=== PATIENT | female | born 1970 | race Caucasian/White ===

== ENCOUNTER 2018-04-06 20:57 | Observation (INO) | payer MEDICAID, SELFPAY ==
[2018-04-06 20:58] VITALS: BP 132/65; PULSE 102; RESP 18; TEMP 36.1; O2SAT 98; BMI 22.4
--- NOTE | 2018-04-06 21:56 | ED.RN ---
iv attempted in triage. not successful.
--- NOTE | 2018-04-06 22:20 | ED.VISSUMM ---
- ER Visit Summary Date of Service: 04/06/18 Chief Complaint: Abdominal pain History of Present Illness: The patient is a 48 F presenting with left lower quadrant abdominal pain. This started 3 days ago. She has nausea with no vomiting. She has had diarrhea. Denies urinary complaints. Denies back pain. Denies fever. She has not had these symptoms in the past. She has a history of ovarian cancer in remission. Previous total hysterectomy. Denies other complaints. Physical Examination: Vitals are stable. Heart rate 102. Patient is afebrile. Alert no acute distress. HEENT exam is unremarkable. Neck is supple. Lungs are clear and equal bilaterally. Heart is regular rate and tachycardic Abdomen is soft left lower quadrant tenderness with no rebound or guarding Extremities are unremarkable. Skin is warm and dry. Remainder of exam is unremarkable. Emergency Department Course and Treatment: Patient given IV fluids, morphine, Phenergan. CBC, chemistries unremarkable. Total bili 0.10, lipase 96. Urinalysis unremarkable. CT abdomen pelvis shows apparent acute inflammation and localized ileus of the proximal small bowel involving primarily the duodenum and proximal jejunum. Possible fecal stasis within the transverse colon and right colon may be the result of an ileus as well. This may be result of acute infection or inflammation of small bowel. Sigmoid colon diverticulosis. There is thickening of the gauthier of sigmoid colon which may in part be related to nondistention. Acute infection or inflammation cannot be excluded. She was given Flagyl and Rocephin secondary to levofloxacin allergy. Discussed with hospitalist for observation. Disposition: Observation Impression: Abdominal pain, ileus This note was generated with [employer] dictation software. It may contain incorrect words, spelling, and punctuation that were not noted in review of the chart prior to signing ED Disposition - Plan for ED Patient: Chief Complaint: Abd Pain Referrals: [facility] Doctor,Out of [NON-STAFF] -
[2018-04-06] MEDS: 0.9% Normal Saline 1,000 ML 1000 ML IV (22:36)
[2018-04-06] MEDS: proMETHazine 25 MG/ML Syringe 6.25 MG IV (22:36)
[2018-04-06] MEDS: Morphine 4 MG/ML Syringe IV (22:36)
[2018-04-06 22:49] LABS: Absolute Lymphocyte Count 1.71 X10^3/ul (0.83-4.51); Absolute Neutrophil Count 4.2 X10^3/uL (2.0-7.7); Basophil# 0.04 X10^3/uL; Basophil% 0.6 % (0-1); Eosinophil# 0.24 X10^3/uL; Eosinophils% 3.5 % (0-5); Hematocrit 40.6 % (37-47); Hemoglobin 13.1 g/dl (12.0-15.0); Lymphocyte # 1.71 X10^3/ul (4.0); Mean Corp Hgb Conc 32.3 g/gl (32-36); Mean Corpuscular Hgb 32.5 pg (27.0-32.0); Mean Corpuscular Volume 100.7 fL (81-99); Mean Platelet Vol. 11.3 fl (6.2-12.0); Monocyte# 0.65 X10^3/uL; Monocyte% 9.5 % (0-10); Neutrophil % 61.3 % (47-70); Platelet Count 168 K/mm3 (150-450); RBC Distribution Width CV 13.1 % (11.6-14.6); RBC Distribution Width SD 47.8 fl (35.1-43.9); Red Blood Count 4.03 M/mm3 (4.2-5.4); White Blood Count 6.9 K/mm3 (4.4-11.0)
[2018-04-06 22:50] LABS: POSITIVE COUNT NO; POSITIVE DIFFERENTIAL NO; POSITIVE MORPHOLOGY NO
[2018-04-06 23:13] LABS: AST(SGOT) 18 U/L (15-37); Alanine Aminotransfer ALT/SGPT 25 U/L (13-56); Albumin, Serum 3.4 g/dL (3.2-5.0); Alkaline Phosphatase 80 U/L (45-117); Anion Gap 7 (5-15); BUN 17 mg/dL (7-18); BUN/Creat Ratio 17.4 RATIO (10-20); Bilirubin, Direct < 0.05 mg/dL (0.00-0.30); Calcium,Total 8.8 mg/dL (8.5-10.1); Chloride 109 mmol/L (98-107); Creatinine, Serum 0.98 mg/dL (0.55-1.02); EST Glomerular Filtration Rate 65 mL/min (>60); Est Glom Filt Rate - Afr Amer 79 mL/min (>60); Estimated Creatinine Clearance 63.86 ml/min; Globulin 3.5 g/dL (2.2-4.2); Glucose 100 mg/dL (74-106); Lipase 96 U/L (73-393); Potassium 3.9 mmol/L (3.5-5.1); Protein, Total 6.9 g/dL (6.4-8.2); Sodium Level 141 mmol/L (136-145)
[2018-04-06 23:30] VITALS: RESP 18
[2018-04-06 23:41] LABS: Bacteria 0 SEEN /hpf (None Seen); Mucous, Urine 0 SEEN /hpf (<or=2+)
[2018-04-06 23:45] LABS: Color, Urine Yellow (Yellow); Glucose, Dipstick Normal (Normal); Ketone-Dipstick Negative (Negative); Leukocyte Esterase-Dipstick 25 /ul (Negative); Nitrite-Dipstick Negative (Negative); Occult Blood-Urine 10 /ul (Negative); Protein-Dipstick Negative (Negative); Specific Gravity, Urine 1.015 (1.002-1.030); Urine Bilirubin Dipstick Negative (Negative); Urine Clarity Clear (Clear); Urine Urobilinogen Normal (Normal); Urine pH 6.5 (5.0 - 8.0)
[2018-04-06 23:52] LABS: Red Blood Cells-Urine 0-5 SEEN /hpf (0-5); Squamous Epithelial Cells - UA 0-5 SEEN /hpf (5-10); White Blood Cells 0-5 SEEN /hpf (0-5)
[2018-04-06 23:58] VITALS: BP 122/69; PULSE 65; RESP 16; TEMP 36.8; O2SAT 98
[2018-04-07] VITALS (7 sets, daily range): BP systolic 110–128; BP diastolic 70–81; PULSE 60–70; RESP 14–18; TEMP 36.4–36.9; O2SAT 94–99; BMI 22.2; BMI 22.3
--- NOTE | 2018-04-07 01:52 | ED.RN ---
WHILE AT CT PATIENTS IV INFILTRATED. PATIENT HAND SWOLLEN. DENIES PAIN. HAND ELEVATED AND ICE APPLIED. DR CAIN NOTIFIED.
--- NOTE | 2018-04-07 02:15 | PCM.HP.STD ---
Problem List (1) Abdominal pain Status: Acute Qualifiers: Abdominal location: generalized Qualified Code(s): R10.84 - Generalized abdominal pain (2) Nausea Status: Acute (3) History of ovarian cancer Status: Chronic History of Present Illness Date of Admission: 04/07/18 Chief Complaint: abdominal pain The patient is a 48 year old female patient with a significant history of ovarian cancer presents to the ER with abdominal pain. The pain has progressed over the past three days. She has had little or no appetite. Last BM was two days ago. CT scan shows ileus with inflammation of duodenum and proximal jejunum, there is diverticulosis , appendix is visualized and appears normal. CBC, CMP are within normal limits. She is afebrile but pain level warrants admission for observation. Past Medical History Past Medical History (Chronic Problems): Chronic Problems History of ovarian cancer (Chronic) Allergies ondansetron [From Zofran] Allergy (Verified 04/06/18 21:02) Shortness of breath aspirin Adverse Reaction (Verified 04/06/18 21:02) Other BLISTER ibuprofen [From Motrin] Adverse Reaction (Verified 04/06/18 21:02) Other BLISTER levofloxacin [From Levaquin] Adverse Reaction (Verified 04/06/18 21:02) Other BLISTER NSAIDS (Non-Steroidal Anti-Inflamma Adverse Reaction (Verified 04/06/18 21:02) Other BLISTER Smoking Status: Current every day smoker - *Family History Maternal History Items: No pertinent history Review of Systems Constitutional: Reports: Chills. Denies: Fever, Weight Change HEENT: Denies: Head Aches, Sinus Congestion, Sinus Drainage Cardiovascular: Denies: Chest Pain, Palpitations Respiratory: Denies: Cough, Shortness of breath at rest, Sputum production Gastrointestinal: Reports: Abdominal Pain, Nausea. Denies: Vomiting Genitourinary: Denies: Dysuria Musculoskeletal: Denies: Joint Pain, Joint Tenderness Skin: Denies: Rash, Wounds Neurological: Denies: Numbness, Tingling, Focal weakness Psychiatric: Denies: Anxiety, Depression, Homicidal Ideations, Suicidal Ideations Hematologic/ Lymphatic: Denies: Easy Bruising, Easy Bleeding VTE Information - Inpt Only VTE Present on Admission: No VTE Mechan Device Prophylaxis: None VTE Pharm Prophylaxis ordered?: Yes Patient Problems: Active and Suspected Problems Abdominal pain (Acute) Nausea (Acute) - Physical Exam General: Alert, Oriented x3, Cooperative HEENT: Atraumatic, Normocephalic Neck: Supple Lungs: Normal air movement, No rhonchi, No rales, Wheezes Cardiovascular: Regular rate, Normal S1, Normal S2, No murmurs Abdomen: Soft, Hypoactive Bowel Sounds, Tender Extremities: No edema Skin: No rashes Musculoskeletal: No Tenderness to Palpation of Joints or Extremities Neurological: Neuro grossly intact Psych/Mental Status: Normal Affect, Appropriate Vital Signs Temp Pulse Resp BP Pulse Ox 97.8 F 70 14 110/71 94 04/07/18 01:53 04/07/18 01:53 04/07/18 01:53 04/07/18 01:53 04/07/18 01:53 Oxygen Delivery Method Room Air Weight: 134 lb 11.239 oz Body Mass Index (BMI) 22.4 Laboratory Tests Past 24 Hrs 04/06/18 04/06/18 04/06/18 22:35 22:35 23:33 WBC 6.9 RBC 4.03 L Hgb 13.1 Hct 40.6 MCV 100.7 H MCH 32.5 H MCHC 32.3 RDW 13.1 RDW Differential 47.8 H Plt Count 168 MPV 11.3 Immature Gran % (Auto) 0.100 Neut % (Auto) 61.3 Lymph % (Auto) 25.0 [place] % (Auto) 9.5 Eos % (Auto) 3.5 Baso % (Auto) 0.6 Absolute Neuts (auto) 4.2 Absolute Lymphs (auto) 1.71 Total Counted Not Reportable Sodium 141 Potassium 3.9 Chloride 109 H Carbon Dioxide 25.0 Anion Gap 7 BUN 17 Creatinine 0.98 Estim Creat Clear Calc 63.86 Est GFR (MDRD) Af Amer 79 Est GFR (MDRD) Non-Af 65 BUN/Creatinine Ratio 17.4 Glucose 100 Calcium 8.8 Total Bilirubin 0.10 L Direct Bilirubin < 0.05 AST 18 ALT 25 Alkaline Phosphatase 80 Total Protein 6.9 Albumin 3.4 Globulin 3.5 Lipase 96 Urine Color Yellow Urine Clarity Clear Urine pH 6.5 Ur Specific [place] 1.015 Urine Protein Negative Urine Glucose (UA) Normal Urine Ketones Negative Urine Occult Blood 10 H Urine Nitrite Negative Urine Bilirubin Negative Urine Urobilinogen Normal Ur Leukocyte Esterase 25 H Urine RBC 0-5 SEEN Urine WBC 0-5 SEEN Ur Squamous Epith Cells 0-5 SEEN Urine Bacteria 0 SEEN Urine Mucus 0 SEEN Assessment/Plan All Active Problems Abdominal pain (Acute) Nausea (Acute) Plan 1. Abdominal pain/ Ileus/ small intestine inflammation--admit to general medical floor. NPO. IV normal saline at 125cc/hr. Morphine 2mg IV q 2hrs prn, zofran 4mg IV q8hrs prn nausea. CBC, CMP in am. 2. DVT prophylaxis-- LMWH Code Visit OBSV E&M: [id number] Initial observation care L2
[2018-04-07] MEDS: Ceftriaxone 1 GM/50 ML BAG IV (02:21)
[2018-04-07] MEDS: Morphine 2 MG/ML Syringe IV ×7 (03:34→22:15)
[2018-04-07 05:56] LABS: Absolute Lymphocyte Count 1.78 X10^3/ul (0.83-4.51); Absolute Neutrophil Count 2.6 X10^3/uL (2.0-7.7); Basophil# 0.03 X10^3/uL; Basophil% 0.6 % (0-1); Eosinophil# 0.23 X10^3/uL; Eosinophils% 4.5 % (0-5); Hematocrit 40.4 % (37-47); Lymphocyte # 1.78 X10^3/ul (4.0); Lymphocyte % 34.7 % (19-41); Mean Corp Hgb Conc 32.2 g/gl (32-36); Mean Corpuscular Hgb 32.5 pg (27.0-32.0); Mean Platelet Vol. 11.6 fl (6.2-12.0); Monocyte# 0.45 X10^3/uL; Monocyte% 8.8 % (0-10); Neutrophil # 2.63 X10^3/uL (2.7-7.7); Neutrophil % 51.2 % (47-70); Platelet Count 167 K/mm3 (150-450); RBC Distribution Width CV 13.2 % (11.6-14.6); RBC Distribution Width SD 47.8 fl (35.1-43.9); White Blood Count 5.1 K/mm3 (4.4-11.0)
[2018-04-07 05:58] LABS: POSITIVE COUNT NO; POSITIVE DIFFERENTIAL NO; POSITIVE MORPHOLOGY NO
[2018-04-07 06:19] LABS: AST(SGOT) 19 U/L (15-37); Alanine Aminotransfer ALT/SGPT 25 U/L (13-56); Albumin, Serum 3.1 g/dL (3.2-5.0); Alkaline Phosphatase 69 U/L (45-117); Anion Gap 9 (5-15); BUN 14 mg/dL (7-18); BUN/Creat Ratio 18.3 RATIO (10-20); Calcium,Total 7.9 mg/dL (8.5-10.1); Chloride 112 mmol/L (98-107); Creatinine, Serum 0.76 mg/dL (0.55-1.02); EST Glomerular Filtration Rate 86 mL/min (>60); Est Glom Filt Rate - Afr Amer 104 mL/min (>60); Estimated Creatinine Clearance 82.34 ml/min; Globulin 3.2 g/dL (2.2-4.2); Glucose 87 mg/dL (74-106); Potassium 4.1 mmol/L (3.5-5.1); Protein, Total 6.3 g/dL (6.4-8.2); Sodium Level 144 mmol/L (136-145)
[2018-04-07] MEDS: proMETHazine 25 MG/ML Syringe 12.5 MG IV (09:42)
--- NOTE | 2018-04-07 11:03 | RAD_ITS ---
STUDY: X-RAY - ABDOMEN/PELVIS REASON FOR EXAM: Female, 48 years old. Abdominal pain, last bowel movement yesterday. Possible small bowel obstruction. TECHNIQUE: AP supine and upright views of the abdomen and pelvis. COMPARISON: CT abdomen and pelvis 1220 hours. FINDINGS: Normal visualized lung bases. There is an unremarkable bowel gas pattern, including stool mixed with contrast material from prior study throughout most of the colon. There is no demonstrated free abdominal air. The visualized liver, spleen and kidneys are grossly normal in size and morphology. Surgical clips are noted along the blanco of the right and transverse colon, and a few smaller surgical clips are also seen in the low abdomen/pelvis. There is a small calcified phlebolith in the left pelvic soft tissues. Normal visualized osseous structures. RAD/Abd Inc Decub and/or Erect IMPRESSION: Postsurgical changes evident. The bowel pattern is unremarkable without sign of obstruction. No free gas. Electronically Signed: Silvano Iyer MD at 17:19 EST , Service support ,
--- NOTE | 2018-04-07 11:04 | PCM.PN.HOSP ---
Patient Problems: Active and Suspected Problems Abdominal pain (Acute) Nausea (Acute) Subjective: Patient have vomiting about 3 times daily for last 3 days along with abdominal pain. She denies any change in the bowel movement and has moved bowel yesterday but as per her H&P looks like last fall when it was 2 days ago. Patient has history of ovarian cancer and had a laparotomy with nephrectomy although detailed operative note is unavailable. Her oncologist care is in [facility], last chemo was in August 2015 and was discontinued after she developed allergy with chemotherapeutic drug. She also has history of peptic ulcer disease about 7 years ago no history of hematemesis but denies any recent GI bleed. Denies alcohol drinking or liver disease. Had subjective fever with chills and diaphoresis before coming here but after admission no fever Vitals/I&O's: Vital Signs Temp Pulse Resp BP Pulse Ox 97.6 F L 66 18 128/81 H 96 04/07/18 07:50 04/07/18 07:50 04/07/18 07:50 04/07/18 07:50 04/07/18 07:50 Oxygen Delivery Method Room Air Weight: 133 lb 13.129 oz Body Mass Index (BMI) 22.2 Intake and Output for Last 24 Hours 04/05/18 04/06/18 04/07/18 23:59 23:59 23:59 Intake Total 189 / 189 Balance 189 / 189 General: Alert, Oriented x3, Cooperative HEENT: Atraumatic, PERRLA, EOMI, Normocephalic Neck: Supple, No JVD, Negative Carotid Bruits Lungs: Clear to auscultation, Normal air movement, No rhonchi, No wheeze, No rales Cardiovascular: Regular rate, Regular Rhythm, Normal S1, No murmurs Abdomen: Bowel Sounds Present, Soft, Tender - Predominantly over left upper quadrant. Extremities: No edema, Capillary Refill Less than 3 Seconds Skin: No rashes, No breakdown Musculoskeletal: No Tenderness to Palpation of Joints or Extremities Neurological: Cranial nerves II-XII grossly intact Psych/Mental Status: Normal Affect, Appropriate Laboratory Results 04/06/18 22:35: WBC 6.9, RBC 4.03 L, Hgb 13.1, Hct 40.6, MCV 100.7 H, MCH 32.5 H, MCHC 32.3, RDW 13.1, RDW Differential 47.8 H, Plt Count 168, MPV 11.3, Immature Gran % (Auto) 0.100, Neut % (Auto) 61.3, Lymph % (Auto) 25.0, [place] % (Auto) 9.5, Eos % (Auto) 3.5, Baso % (Auto) 0.6, Absolute Neuts (auto) 4.2, Absolute Lymphs (auto) 1.71, Total Counted Not Reportable 04/06/18 22:35: Sodium 141, Potassium 3.9, Chloride 109 H, Carbon Dioxide 25.0, Anion Gap 7, BUN 17, Creatinine 0.98, Estim Creat Clear Calc 63.86, Est GFR (MDRD) Af Amer 79, Est GFR (MDRD) Non-Af 65, BUN/Creatinine Ratio 17.4, Glucose 100, Calcium 8.8, Total Bilirubin 0.10 L, Direct Bilirubin < 0.05, AST 18, ALT 25, Alkaline Phosphatase 80, Total Protein 6.9, Albumin 3.4, Globulin 3.5, Lipase 96 04/06/18 23:33: Urine Color Yellow, Urine Clarity Clear, Urine pH 6.5, Ur Specific [place] 1.015, Urine Protein Negative, Urine Glucose (UA) Normal, Urine Ketones Negative, Urine Occult Blood 10 H, Urine Nitrite Negative, Urine Bilirubin Negative, Urine Urobilinogen Normal, Ur Leukocyte Esterase 25 H, Urine RBC 0-5 SEEN, Urine WBC 0-5 SEEN, Ur Squamous Epith Cells 0-5 SEEN, Urine Bacteria 0 SEEN, Urine Mucus 0 SEEN 04/07/18 05:14: WBC 5.1, RBC 4.00 L, Hgb 13.0, Hct 40.4, MCV 101.0 H, MCH 32.5 H, MCHC 32.2, RDW 13.2, RDW Differential 47.8 H, Plt Count 167, MPV 11.6, Immature Gran % (Auto) 0.200, Neut % (Auto) 51.2, Lymph % (Auto) 34.7, [place] % (Auto) 8.8, Eos % (Auto) 4.5, Baso % (Auto) 0.6, Absolute Neuts (auto) 2.6, Absolute Lymphs (auto) 1.78, Total Counted Not Reportable 04/07/18 05:14: Sodium 144, Potassium 4.1, Chloride 112 H, Carbon Dioxide 23.0, Anion Gap 9, BUN 14, Creatinine 0.76, Estim Creat Clear Calc 82.34, Est GFR (MDRD) Af Amer 104, Est GFR (MDRD) Non-Af 86, BUN/Creatinine Ratio 18.3, Glucose 87, Calcium 7.9 L, Total Bilirubin 0.20, AST 19, ALT 25, Alkaline Phosphatase 69, Total Protein 6.3 L, Albumin 3.1 L, Globulin 3.2, Albumin/Globulin Ratio 1.0 Current Medications Enoxaparin Sodium (Lovenox) 40 mg SC DAILY@1000 KARLY Sodium Chloride () 1,000 mls @ 125 mls/hr IV .Q8H KARLY Magnesium Hydroxide (Milk Of Magnesia) 30 ml PO DAILY PRN PRN PRN Reason: Constipation Morphine Sulfate () 2 mg IV Q2H PRN PRN PRN Reason: SEVERE PAIN (6-10/10) Last Admin: 04/07/18 09:42 Dose: 2 mg Promethazine HCl (Phenergan) 12.5 mg IV Q6H PRN PRN PRN Reason: NAUSEA/VOMITING Last Admin: 04/07/18 09:42 Dose: 12.5 mg Sodium Chloride () 5 - 15 ml IV UD PRN PRN Reason: SALINE FLUSH Medical Necessity - Tobacco Use Smoking Status: Current every day smoker Assessment/Plan All Active Problems Abdominal pain (Acute) Nausea (Acute) This is a 48-year-old female with history of ovarian cancer status post laparotomy, oophorectomy, could not complete chemotherapy because of allergic reaction, last one in August 2017 in [facility] 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 She denies unusual food/food poisoning. She denies diarrhea or GI bleed but most probably did not move bowel movement for last 2 days. She also had subjective fever before coming to hospital. 1. Generalized abdominal pain most probably secondary to small bowel ileus/enteritis: CT abdomen images reviewed. It shows dilatation of proximal small bowel involving duodenum and proximal jejunum suggestive of inflammation and localized ileus. Feces present in transverse colon and ascending colon. Sigmoid colon diverticulosis. Stool for fecal blood, leukocytes and enteric pathology panel ordered. NG tube was tried for decompression but patient could not tolerate it. Surgical consult for further opinion and recommendation 2. Ovarian cancer status post laparotomy: Follows outpatient oncology in [facility]. DVT prophylaxis: On Lovenox 40 mg subcu daily Clinical Impression(s) from Imaging Studies Abdomen/Pelvis CT 04/07/18 22:17 IMPRESSION: 1. Apparent acute inflammation and localized ileus of the proximal small bowel involving primarily the duodenum and proximal jejunum. Possible fecal stasis within the transverse colon and right colon may be the result of an ileus as well. This may be result of acute infection or inflammation of small bowel. 2. Sigmoid colon diverticulosis. There is thickening of the gauthier of sigmoid colon which may in part be related to nondistention. Acute infection or inflammation cannot be excluded.
--- NOTE | 2018-04-07 12:21 | PCA ---
Sent request for medical records to [facility]
[2018-04-07] MEDS: proCHLORPERazine 10 MG/2 ML Vial 5 MG IV (12:36)
[2018-04-07] MEDS: 0.9% Normal Saline 1,000 ML 125 ML IV ×2 (12:42→22:14)
[2018-04-07] MEDS: 0.9% NaCl Peripheral Flush Adult/Peds IV ×3 (16:25→22:15)
--- NOTE | 2018-04-07 19:07 | PCM.CONS.GEN ---
Reason for Consult Date of Consultation: 04/07/18 Reason for Consultation: abdominal pain History of Present Illness: The patient is a 48 year old F presents with complaint of increasing abdominal pain and poor appetite over the last 5 days. The patient denies true nausea or vomiting. She states she is moving her bowels and passing flatus. When she presented emergency department, she underwent CT scan of the abdomen and pelvis. This demonstrated: IMPRESSION: 1. Apparent acute inflammation and localized ileus of the proximal small bowel involving primarily the duodenum and proximal jejunum. Possible fecal stasis within the transverse colon and right colon may be the result of an ileus as well. This may be result of acute infection or inflammation of small bowel. 2. Sigmoid colon diverticulosis. There is thickening of the gauthier of sigmoid colon which may in part be related to nondistention. Acute infection or inflammation cannot be excluded. the patient had unremarkable laboratory studies. The patient was admitted with the above complaints. Incidentally, the patient notes a history of ovarian cancer. She states she was stage IV ovarian cancer. She understood she had a radical hysterectomy with surgery which she describes was resection of part of her colon and small bowel and appendix. She states this was performed at [place] [id number]. Past Medical History Past Medical History (Chronic Problems): Chronic Problems History of ovarian cancer (Chronic) Allergies ondansetron [From Zofran] Allergy (Verified 04/06/18 21:02) Shortness of breath aspirin Adverse Reaction (Verified 04/06/18 21:02) Other BLISTER ibuprofen [From Motrin] Adverse Reaction (Verified 04/06/18 21:02) Other BLISTER levofloxacin [From Levaquin] Adverse Reaction (Verified 04/06/18 21:02) Other BLISTER NSAIDS (Non-Steroidal Anti-Inflamma Adverse Reaction (Verified 04/06/18 21:02) Other BLISTER Home Medications: Ambulatory Orders Medication Instructions Recorded ALPRAZolam [Xanax] 1 mg PO TID PRN PRN 04/07/18 Lamotrigine [Lamictal] 300 mg PO QHS 04/07/18 Zolpidem Tartrate [Ambien 10 mg PO QHS PRN PRN 04/07/18 (Generic)] Surgical History: - - radical hysterectomy with additional resections for ovarian cancer Smoking Status: Current every day smoker - *Family History Maternal History Items: No pertinent history Patient Problems: Active and Suspected Problems Abdominal pain (Acute) Nausea (Acute) - Physical Exam General: Alert, Oriented x3, Cooperative Lungs: Clear to auscultation, Normal air movement Cardiovascular: Regular rate, No murmurs Abdomen: Bowel Sounds Present, Soft, Tender - mildly diffusely tender without peritoneal signs Vital Signs Temp Pulse Resp BP Pulse Ox 97.8 F 63 18 114/72 99 04/07/18 16:25 04/07/18 16:25 04/07/18 16:25 04/07/18 16:25 04/07/18 16:25 Oxygen Delivery Method Room Air Weight: 60.7 kg Body Mass Index (BMI) 22.2 Intake and Output for Last 24 Hours 04/05/18 04/06/18 04/07/18 23:59 23:59 23:59 Intake Total 1669 / 1669 Output Total 100 / 100 Balance 1569 / 1569 Laboratory Tests Past 24 Hrs 04/06/18 04/06/18 04/06/18 22:35 22:35 23:33 WBC 6.9 RBC 4.03 L Hgb 13.1 Hct 40.6 MCV 100.7 H MCH 32.5 H MCHC 32.3 RDW 13.1 RDW Differential 47.8 H Plt Count 168 MPV 11.3 Immature Gran % (Auto) 0.100 Neut % (Auto) 61.3 Lymph % (Auto) 25.0 [place] % (Auto) 9.5 Eos % (Auto) 3.5 Baso % (Auto) 0.6 Absolute Neuts (auto) 4.2 Absolute Lymphs (auto) 1.71 Total Counted Not Reportable Sodium 141 Potassium 3.9 Chloride 109 H Carbon Dioxide 25.0 Anion Gap 7 BUN 17 Creatinine 0.98 Estim Creat Clear Calc 63.86 Est GFR (MDRD) Af Amer 79 Est GFR (MDRD) Non-Af 65 BUN/Creatinine Ratio 17.4 Glucose 100 Calcium 8.8 Total Bilirubin 0.10 L Direct Bilirubin < 0.05 AST 18 ALT 25 Alkaline Phosphatase 80 Total Protein 6.9 Albumin 3.4 Globulin 3.5 Albumin/Globulin Ratio Lipase 96 Urine Color Yellow Urine Clarity Clear Urine pH 6.5 Ur Specific [place] 1.015 Urine Protein Negative Urine Glucose (UA) Normal Urine Ketones Negative Urine Occult Blood 10 H Urine Nitrite Negative Urine Bilirubin Negative Urine Urobilinogen Normal Ur Leukocyte Esterase 25 H Urine RBC 0-5 SEEN Urine WBC 0-5 SEEN Ur Squamous Epith Cells 0-5 SEEN Urine Bacteria 0 SEEN Urine Mucus 0 SEEN 04/07/18 04/07/18 05:14 05:14 WBC 5.1 RBC 4.00 L Hgb 13.0 Hct 40.4 MCV 101.0 H MCH 32.5 H MCHC 32.2 RDW 13.2 RDW Differential 47.8 H Plt Count 167 MPV 11.6 Immature Gran % (Auto) 0.200 Neut % (Auto) 51.2 Lymph % (Auto) 34.7 [place] % (Auto) 8.8 Eos % (Auto) 4.5 Baso % (Auto) 0.6 Absolute Neuts (auto) 2.6 Absolute Lymphs (auto) 1.78 Total Counted Not Reportable Sodium 144 Potassium 4.1 Chloride 112 H Carbon Dioxide 23.0 Anion Gap 9 BUN 14 Creatinine 0.76 Estim Creat Clear Calc 82.34 Est GFR (MDRD) Af Amer 104 Est GFR (MDRD) Non-Af 86 BUN/Creatinine Ratio 18.3 Glucose 87 Calcium 7.9 L Total Bilirubin 0.20 Direct Bilirubin AST 19 ALT 25 Alkaline Phosphatase 69 Total Protein 6.3 L Albumin 3.1 L Globulin 3.2 Albumin/Globulin Ratio 1.0 Lipase Urine Color Urine Clarity Urine pH Ur Specific [place] Urine Protein Urine Glucose (UA) Urine Ketones Urine Occult Blood Urine Nitrite Urine Bilirubin Urine Urobilinogen Ur Leukocyte Esterase Urine RBC Urine WBC Ur Squamous Epith Cells Urine Bacteria Urine Mucus Assessment/Plan All Active Problems Abdominal pain (Acute) Nausea (Acute) poor appetite, abdominal pain, history of surgical procedure for advanced ovarian cancer? Tobacco use CT scan does not demonstrate a true obstructive or even ileus picture. There was a question of dilation of the duodenum. The patient has noted a poor appetite and increasing abdominal pain, the patient smokes cigarettes. I have ordered an obstructive series if this does not demonstrate a more obstructive picture, I would consider upper endoscopy to assess for peptic ulcer disease.
--- NOTE | 2018-04-07 22:17 | CT_ITS ---
STUDY: CT ABDOMEN AND PELVIS WITH CONTRAST REASON FOR EXAM: Female, 48 years old. Left lower quadrant abdominal pain and nausea for 3 days. Patient has been treated for ovarian cancer. RADIATION DOSAGE (If Supplied By Facility): CTDIvol = ( 10.88 ) mGy, DLP = ( 439.23 ) mGycm TECHNIQUE: Transaxial images were obtained from the dome of the diaphragm to the symphysis pubis without oral contrast. 50 ml of Isovue 300 contrast was administered. Sagittal and coronal images were reconstructed. Individualized dose optimization techniques were used for this CT. COMPARISON: Prior comparison studies are not available for review at this time. FINDINGS: There is groundglass attenuation within the posterior regions of both lungs possibly related to dependent atelectasis. Early airspace disease is also possible. No pleural effusions are visualized. The visualized portions of the heart are within normal limits. Normal liver. Normal gallbladder and extrahepatic biliary system. Normal spleen. Normal pancreas. Normal bilateral adrenal glands. Normal right kidney. Normal left kidney. Normal visualized stomach. There is apparent thickening of the gauthier of proximal small bowel possibly related to acute infection or inflammation. The rest the small bowel has a normal appearance. Appears to be a increased stool within the transverse colon and right colon suggesting possible fecal stasis. The descending colon is not distended with questionable thickening of the gauthier. There are multiple sigmoid colon diverticula. The sigmoid colon is not distended and there are screws in the appearance of thickened gauthier. There are surgical clips in the region of the appendix consistent with a prior appendectomy. Normal abdominal aorta. Normal inferior vena cava. Normal retroperitoneum. Normal urinary bladder. There is absence of the uterus consistent with a prior hysterectomy. Normal abdominal wall. Normal osseous structures. CT/Abdomen/Pelvis WITH Contrast IMPRESSION: 1. Apparent acute inflammation and localized ileus of the proximal small bowel involving primarily the duodenum and proximal jejunum. Possible fecal stasis within the transverse colon and right colon may be the result of an ileus as well. This may be result of acute infection or inflammation of small bowel. 2. Sigmoid colon diverticulosis. There is thickening of the gauthier of sigmoid colon which may in part be related to nondistention. Acute infection or inflammation cannot be excluded. Electronically Signed: Kirsten Mckinney MD at 1:14 EST , Service support ,
[2018-04-08] MEDS: Morphine 2 MG/ML Syringe IV ×5 (00:27→09:49)
[2018-04-08] MEDS: 0.9% NaCl Peripheral Flush Adult/Peds IV ×4 (00:27→09:49)
[2018-04-08] MEDS: ALPRAZolam 0.5 MG Tablet 1 MG PO (00:27)
[2018-04-08] MEDS: proCHLORPERazine 10 MG/2 ML Vial 5 MG IV (03:52)
[2018-04-08 03:56] VITALS: BP 114/66; PULSE 80; RESP 16; TEMP 36.6; O2SAT 97
--- NOTE | 2018-04-08 06:00 | RAD_ITS ---
STUDY: X-RAY - ABDOMEN/PELVIS REASON FOR EXAM: Female, 48 years old. Abdominal pain. TECHNIQUE: AP supine and upright views of the abdomen and pelvis. COMPARISON: Radiographs of the abdomen dated April 07, 2018. FINDINGS: Normal visualized lung bases. There is an unremarkable bowel gas pattern. Multiple surgical clips are visible within the right upper quadrant and left upper quadrant. Surgical clips are visible in the pelvis and right lower quadrant. There is no obvious organomegaly, mass or dilated bowel. Normal soft tissue structures. Normal visualized osseous structures. RAD/Abd Inc Decub and/or Erect IMPRESSION: No radiographic evidence of acute intra-abdominal disease. Electronically Signed: Kirsten Mckinney MD at 5:42 EST , Service support ,
[2018-04-08] MEDS: 0.9% Normal Saline 1,000 ML 125 ML IV (06:37)
[2018-04-08 09:42] VITALS: BP 135/80; PULSE 72; RESP 18; TEMP 36.6; O2SAT 99
--- NOTE | 2018-04-08 11:28 | PCM.DC.SUM ---
Discharge Date and Diagnosis Date of Admission: 04/07/18 Date of Discharge: 04/08/18 - Primary Discharge Diagnosis Active and Suspected Problems Abdominal pain (Acute) Nausea (Acute) - Secondary Discharge Diagnosis Chronic Problems History of ovarian cancer (Chronic) Hospital Course and Treatment Imaging Results: 04/08/18 06:00 Abd Inc Decub and/or Erect [RAD] Routine Summary of Care Provided: [] This is a 48-year-old female with history of ovarian cancer status post laparotomy, oophorectomy, could not complete chemotherapy because of allergic reaction, last one in August 2017 in [facility] 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 She denies unusual food/food poisoning. She denies diarrhea or GI bleed but most probably did not move bowel movement for last 2 days. She also had subjective fever before coming to hospital. 1. Generalized abdominal pain most probably secondary to small bowel ileus/enteritis: CT abdomen images reviewed. It shows dilatation of proximal small bowel involving duodenum and proximal jejunum suggestive of inflammation and localized ileus. Feces present in transverse colon and ascending colon. Sigmoid colon diverticulosis. Stool for fecal blood, leukocytes and enteric pathology panel ordered but patient did not collection although she had bowel movement. Dr. Owusu was consulted. Repeat abdominal x-ray does not show bowel obstruction. Patient was allowed on sips and chips last night and changed to clear liquid diet. Patient wants to sign AMA and leave the hospital. She was tried to convince she did further need to assess for EGD to assess the cause for duodenal and jejunal dilatation but she did not want to stay further. This was discussed with Dr. Owusu who does not want to follow for outpatient EGD with the patient signs AMA and this was conveyed to the patient. Patient is still signed AMA. 2. Ovarian cancer status post laparotomy: Follows outpatient oncology in [facility]. DVT prophylaxis: On Lovenox 40 mg subcu daily Discharge medication reconciliation done. Patient was advised to take PPI. Follow with PCP Clinical Impression(s) from Imaging Studies Abdomen X-Ray 04/07/18 11:03 IMPRESSION: Postsurgical changes evident. The bowel pattern is unremarkable without sign of obstruction. No free gas. Abdomen/Pelvis CT 04/07/18 22:17 IMPRESSION: 1. Apparent acute inflammation and localized ileus of the proximal small bowel involving primarily the duodenum and proximal jejunum. Possible fecal stasis within the transverse colon and right colon may be the result of an ileus as well. This may be result of acute infection or inflammation of small bowel. 2. Sigmoid colon diverticulosis. There is thickening of the gauthier of sigmoid colon which may in part be related to nondistention. Acute infection or inflammation cannot be excluded. Abdomen X-Ray 04/08/18 06:00 IMPRESSION: No radiographic evidence of acute intra-abdominal disease. Subjective: Seen and examined. Patient does not have nausea vomiting. On sips and chips and allowed clear liquid. Denies abdominal pain. Patient moved flatus and bowel movement. - Physical Exam General: Alert, Oriented x3, Cooperative HEENT: Atraumatic, PERRLA, EOMI, Normocephalic Neck: Supple, No JVD, Negative Carotid Bruits Lungs: Clear to auscultation, Normal air movement, No rhonchi, No wheeze, No rales Cardiovascular: Regular rate, Normal S1, Normal S2, No murmurs Abdomen: Bowel Sounds Present, Soft, Non Tender, Non-Distended Extremities: No edema, Capillary Refill Less than 3 Seconds Skin: No rashes, No breakdown Musculoskeletal: No Tenderness to Palpation of Joints or Extremities Neurological: Cranial nerves II-XII grossly intact, Deep Tendon Reflexes 2+/4 and Symmetrical, Neuro grossly intact, Motor Exam 5/5 strength throughout Psych/Mental Status: Normal Affect, Appropriate Vital Signs Temp Pulse Resp BP Pulse Ox 98 F 72 18 135/80 H 99 04/08/18 09:42 04/08/18 09:42 04/08/18 09:42 04/08/18 09:42 04/08/18 09:42 Oxygen Delivery Method Room Air Weight: 133 lb 13.129 oz Body Mass Index (BMI) 22.2 Intake and Output for Last 24 Hours 04/06/18 04/07/18 04/08/18 23:59 23:59 23:59 Intake Total 2121 / 2121 780 / 780 Output Total 1200 / 1200 200 / 200 Balance 921 / 921 580 / 580 Home Medications: Medications to take at Discharge ALPRAZolam [Xanax] 1 mg PO TID PRN PRN 04/07/18 Lamotrigine [Lamictal] 300 mg PO QHS 04/07/18 Zolpidem Tartrate [Ambien] 10 mg PO QHS PRN PRN 04/07/18 Pantoprazole Sodium [Protonix] 40 mg PO DAILY #30 tablet 04/08/18 Following Prescrptions Were Given to Patient: Pantoprazole Sodium [Protonix] 40 mg PO DAILY #30 tablet Primary Care Physician: Chikis Doctor,Out of [NON-STAFF] - Medical Necessity - Tobacco Use Smoking Status: Current every day smoker Meaningful Use Info Meaningful Use Diagnoses (Choose all that apply): None applicable Code Visit Inpatient E&M: 27460 Disch Hosp
--- NOTE | 2018-04-08 12:04 | NURSING ---
This RN had questioned and spoke with fisher eel about giving pt narcotic pain meds after negative xray this AM. However,led to believe that pt would have scope ordered today and would not be able to take PO pain meds, and because of potential for ulcers could not give IV toradol. Pt has been calling out requesting prn morphine prior to med even being due (ordered every 2 hours). However, in room was laughing and joking. Non verbal pain not correlating with verbalized pain of 5 or 6/10. Pt complained of being nauseated to doctor and per Dr. Chaves's report requested phenergan prior to d/c today. Pt stated that she needed to get out of here as she was tired and hungry. However, then asked for prn nausea medication and prn morphine prior to d/c. As she was getting dressed independently- no issues bending to tie shoes or put on clothing independently. Notified patient and fiance that meds and phenergan cannot be given as pt is leaving AMA. Also, notified pt that her IV has already been removed. Pt verbalized understanding and denied further needs. AMA form signed and copy given to patient Dr. Chaves spoke with pt and fiance notifying them that Dr. Stacy will not be able to see pt as an outpatient if she is leaving AMA. Understanding verbalized by patient and fiance.
== END 2018-04-08 11:40 | disposition left against medical advice (07) ==
LOC: ED 22:23 → MS3 04-07 02:27
PROVIDERS: Admitting Provider Family Medicine; Emergency Provider Emergency Medicine; Referring Provider Nurse Practitioner Family; Visit Provider Internal Medicine
DX: R10.32 Left lower quadrant pain (principal); Z23 Encounter for immunization; R19.7 Diarrhea, unspecified; R11.0 Nausea; Z79.899 Other long term (current) drug therapy; Z85.43 Personal history of malignant neoplasm of ovary; Z87.11 Personal history of peptic ulcer disease; K57.30 Diverticulosis of large intestine without perforation or abscess without bleeding; F17.210 Nicotine dependence, cigarettes, uncomplicated
CPT/HCPCS: 36415; 74019; 74177; 80048; 80053; 80076; 81001; 83690; 85025; 96361; 96365; 96367; 96375; 96376; 97802; 99218; 99285; 99406; J7030; Q9967; 90686; A4216; G0378

== ENCOUNTER 2018-04-13 21:15 | Observation (INO) | payer MEDICAID, SELFPAY ==
[2018-04-07 03:30] VITALS: BMI 22.2
[2018-04-13 21:17] VITALS: BP 128/88; PULSE 97; RESP 16; TEMP 36.6; O2SAT 100; BMI 22.6
--- NOTE | 2018-04-13 21:35 | ED.VISSUMM ---
- ER Visit Summary Date of Service: 04/13/18 Chief Complaint: Abdominal pain History of Present Illness: The patient is a 48 F who presents for left-sided abdominal pain for 8 days. Patient has a history of stage III ovarian cancer, status post hysterectomy, bilateral salpingo-oophorectomy, partial colectomy. Patient was admitted for the same complaint and left AGAINST MEDICAL ADVICE 5 days ago. She has had continued pain, gradually worsening in the left abdomen with associated nausea and vomiting. Patient states she vomited clear mucousy vomit with blood streaks in it 3 times today. She had a normal bowel movement this morning. No urinary symptoms. Yesterday she developed a fever of 101, had chills and sweats, chest pain, shortness of breath, and a headache. Patient did get a flu shot this year. She is not on any medications for pain at home. Physical Examination: Vital signs: afebrile, hemodynamically stable, no hypoxia on room air General: well nourished, well developed, in no distress Skin: warm, dry, no rash, no pallor HEENT: normocephalic and atraumatic; PERRL, EOMI, moist mucous membranes Cardiovascular: Tachycardic rate and rhythm without murmurs, no peripheral edema, 2+ pulses all distal extremities Respiratory: No increased work of breathing, lungs are clear to auscultation bilaterally, no rales, rhonchi or wheezing Abdominal: Abdomen is soft, tender in the left upper and lower quadrants with normoactive bowel sounds, no guarding or rebound, no masses MSK: Moves all extremities, no deformities, normal strength Neuro: Awake and alert, oriented ?4. No facial droop, sensation and motor function intact and symmetric Test Results: Clinical Impression(s) from Imaging Studies Acute Abdomen Series 04/13/18 22:40 IMPRESSION: 1. Nonspecific gas pattern. 2. Mild atelectatic changes in lung bases. Electronically Signed: Ced Gonzalez MD at 22:56 EST Tel , Service support , Medications Given Discontinued Medications Sodium Chloride () 1,000 mls @ 1,000 mls/hr IV .Q1H ONE Stop: 04/13/18 22:33 Last Admin: 04/13/18 22:19 Dose: 1,000 mls/hr Morphine Sulfate () 4 mg IV X1 ONE Stop: 04/13/18 21:35 Last Admin: 04/13/18 22:20 Dose: 4 mg Promethazine HCl (Phenergan) 12.5 mg IV X1 ONE Stop: 04/13/18 21:35 Last Admin: 04/13/18 22:19 Dose: 12.5 mg Emergency Department Course and Treatment: Patient presents for further evaluation and management after leaving AGAINST MEDICAL ADVICE 5 days ago. She has had continued pain, but now is having reported fever, shortness of breath, chest pain, headache and symptoms that sound concerning for influenza. Her main complaint, however, is continued abdominal pain. Flu was checked and was negative. Patient was given morphine for pain, Phenergan for nausea, and IV fluids. Abdominal series was performed that showed no free air or obstructive bowel gas pattern. Patient's urine was positive for hematuria. Her CT scan from 5 days ago was reviewed and showed no evidence of renal stones that might be responsible for ureteral colic today. Patient is also passing gas and having normal bowel movements, making ileus or bowel obstruction unlikely. Patient continued to have severe left-sided pain after receiving pain medications. She had no leukocytosis or significant anemia. Remainder of labs are still pending due to hemolyzed samples and difficulty obtaining blood draws. Because patient has had the persistent pain since her prior admission and did not have completion of her workup, and because she continues to have intractable pain, she was discussed with the hospitalist and was admitted as observation status by Dr. Vazquez, for pain control and consultation for EGD. Treatment Plan: [] Disposition: [] Impression: Intractable abdominal pain, history of ovarian cancer This note was generated with [employer] dictation software. It may contain incorrect words, spelling, and punctuation that were not noted in review of the chart prior to signing ED Disposition - Plan for ED Patient: Chief Complaint: Abd Pain Referrals: Brittny Fuller [Primary Care Provider] -
[2018-04-13] MEDS: 0.9% Normal Saline 1,000 ML 1000 ML IV (22:19)
[2018-04-13] MEDS: proMETHazine 25 MG/ML Syringe 12.5 MG IV (22:19)
[2018-04-13] MEDS: Morphine 4 MG/ML Syringe IV (22:20)
[2018-04-13 22:31] LABS: Bacteria 0 SEEN /hpf (None Seen)
[2018-04-13 22:33] LABS: Color, Urine Yellow (Yellow); Glucose, Dipstick Normal (Normal); Ketone-Dipstick Negative (Negative); Leukocyte Esterase-Dipstick 25 /ul (Negative); Nitrite-Dipstick Negative (Negative); Occult Blood-Urine 250 /ul (Negative); Protein-Dipstick 15 mg/dl (Negative); Specific Gravity, Urine 1.025 (1.002-1.030); Urine Bilirubin Dipstick Negative (Negative); Urine Clarity Sl. Cloudy (Clear); Urine Urobilinogen Normal (Normal)
--- NOTE | 2018-04-13 22:40 | RAD_ITS ---
STUDY: X-RAY - ACUTE ABDOMINAL SERIES REASON FOR EXAM: Female, 48 years old. Abdominal pain. TECHNIQUE: Single view of the chest. Supine, and erect view(s) of the abdomen were obtained. COMPARISON: The 2018. FINDINGS: There is mild stranding in the lung bases consistent with mild subsegmental atelectasis. No focal infiltrate is seen. Normal size heart. Normal mediastinum and shahid. Normal visualized pulmonary arteries. Normal visualized aortic arch and descending thoracic aorta. There are nonspecific gaseous small bowel loops and colon. There is mild fecal retention. There is no evidence of free air. There are surgical clips in the abdomen and pelvic region. Normal visualized osseous structures. RAD/Acute Abdomen Inc Chest IMPRESSION: 1. Nonspecific gas pattern. 2. Mild atelectatic changes in lung bases. Electronically Signed: Ced Gonzalez MD at 22:56 EST Tel , Service support ,
[2018-04-13 22:48] LABS: Squamous Epithelial Cells - UA 0-5 SEEN /hpf (5-10)
[2018-04-13 22:51] LABS: Mucous, Urine 1+ /hpf (<or=2+); Red Blood Cells-Urine > 100 SEEN /hpf (0-5); White Blood Cells 0-5 SEEN /hpf (0-5)
[2018-04-13 23:47] LABS: Absolute Lymphocyte Count 2.08 X10^3/ul (0.83-4.51); Absolute Neutrophil Count 3.8 X10^3/uL (2.0-7.7); Basophil# 0.04 X10^3/uL; Basophil% 0.6 % (0-1); Eosinophil# 0.16 X10^3/uL; Eosinophils% 2.4 % (0-5); Hematocrit 41.3 % (37-47); Hemoglobin 13.2 g/dl (12.0-15.0); Lymphocyte # 2.08 X10^3/ul (4.0); Lymphocyte % 30.7 % (19-41); Mean Corpuscular Hgb 32.3 pg (27.0-32.0); Mean Platelet Vol. 10.8 fl (6.2-12.0); Monocyte# 0.71 X10^3/uL; Monocyte% 10.5 % (0-10); Neutrophil # 3.77 X10^3/uL (2.7-7.7); Neutrophil % 55.7 % (47-70); POSITIVE COUNT NO; POSITIVE DIFFERENTIAL NO; POSITIVE MORPHOLOGY NO; Platelet Count 170 K/mm3 (150-450); RBC Distribution Width CV 13.2 % (11.6-14.6); RBC Distribution Width SD 48.5 fl (35.1-43.9); Red Blood Count 4.09 M/mm3 (4.2-5.4); White Blood Count 6.8 K/mm3 (4.4-11.0)
--- NOTE | 2018-04-13 23:53 | HP.PCM_ITS ---
Problem List (1) Abdominal pain Status: Acute Qualifiers: Abdominal location: generalized Qualified Code(s): R10.84 - Generalized abdominal pain (2) Nausea Status: Acute (3) Tobacco use Status: Chronic (4) Anxiety and depression Status: Chronic (5) GERD (gastroesophageal reflux disease) Status: Chronic Qualifiers: Esophagitis presence: esophagitis presence not specified Qualified Code(s): K21.9 - Gastro-esophageal reflux disease without esophagitis (6) History of ovarian cancer Status: Chronic History of Present Illness Date of Admission: 04/13/18 Chief Complaint: Ongoing L sided abdominal pain The patient is a 48 y/o F w/ PMHx: Ovarian CA Dx 2006 s/p Hysterectomy w/ BL CELSO s/p chemotherapy in Remission following w/ Hem/Onc at [facility], Anxiety and Depression, GERD, Tobacco use who presents to the [facility] ED on 04/13/18, following recently leaving [facility] on 04/08/18 with history of ongoing cramping and severe sharp, 10/10, intermittent primarily L sided abdominal pain w/ nausea with occasional emesis with poor oral intake since leaving, and that the bouts of emesis are so severe that she has had some very mild minimal blood streak secondary to retching. She notes last bowel movement was on day of ED presentation and was normal in appearance in addition to ongoing flatus. She notes additionally that she has had a fever up to 101 in addition to chills at home. Work-up in the ED included T 98, heart rate 97, BP 128/88, respiratory rate 16, 100% on room air, CBC with WBC 6.8, heme globin 13.2, platelet 170 without any left shift increased monocytes, CMP with chloride 108, lactic acid pending, hepatic profile unremarkable, urinalysis with specific gravity 1.025, protein 15, occult blood 250, leukocyte esterase 25, greater than 100 RBC, WBC 0-5, squamous epithelial cells 0-5, no bacteria, rapid influenza negative acute abdominal series with a nonspecific gas pattern with mild atelectatic changes in the lung bases. Past Medical History Past Medical History (Chronic Problems): Chronic Problems History of ovarian cancer (Chronic) Tobacco use (Chronic) Anxiety and depression (Chronic) GERD (gastroesophageal reflux disease) (Chronic) Allergies acetaminophen [From Darvocet-N] Allergy (Verified 04/13/18 21:17) Other ondansetron [From Zofran] Allergy (Verified 04/13/18 21:17) Shortness of breath propoxyphene [From Darvocet-N] Allergy (Verified 04/13/18 21:17) Other aspirin Adverse Reaction (Verified 04/13/18 21:17) Other BLISTER ibuprofen [From Motrin] Adverse Reaction (Verified 04/13/18 21:17) Other BLISTER levofloxacin [From Levaquin] Adverse Reaction (Verified 04/13/18 21:17) Other BLISTER NSAIDS (Non-Steroidal Anti-Inflamma Adverse Reaction (Verified 04/13/18 21:17) Other BLISTER Home Medications: Ambulatory Orders Medication Instructions Recorded ALPRAZolam [Xanax] 1 mg PO TID PRN PRN 04/07/18 Lamotrigine [Lamictal] 300 mg PO QHS 04/07/18 Zolpidem Tartrate [Ambien] 10 mg PO QHS PRN PRN 04/07/18 Pantoprazole Sodium [Protonix] 40 mg PO DAILY #30 tablet 04/08/18 Surgical History: - - Rradical hysterectomy with additional resections for ovarian cancer including a part of her colon and small bowel as well as YVETTE herrera. Psychiatric History: Anxiety, Bipolar, Depression OFFICE CLINICIAN History: ovarian cancer Lives: Spouse/ Significant Other - Lives with her boyfriend. Smoking Status: Current every day smoker - Smokes ~ 1/2 pack/day. Tobacco Use: Cigarettes Alcohol: None Drugs: None - *Family History Maternal History Items: - - Patient denies any marked maternal or paternal family history including heart disease, diabetes, cancer. Paternal History Items: - - Patient denies any marked maternal or paternal family history including heart disease, diabetes, cancer. Review of Systems Constitutional: Reports: Anorexia, Malaise, Weakness, Fatigue. Denies: Chills, Fever, Weight Change HEENT: Denies: Head Aches, Sinus Congestion, Sinus Drainage Cardiovascular: Denies: Chest Pain, Palpitations Respiratory: Denies: Cough, Shortness of breath at rest, Sputum production Gastrointestinal: Reports: Abdominal Pain. Denies: Nausea, Vomiting Genitourinary: Denies: Dysuria Musculoskeletal: Denies: Joint Pain, Joint Tenderness Skin: Denies: Rash, Wounds Neurological: Denies: Numbness, Tingling, Focal weakness Psychiatric: Reports: Anxiety, Depression. Denies: Homicidal Ideations, Suicidal Ideations Hematologic/ Lymphatic: Denies: Easy Bruising, Easy Bleeding VTE Information - Inpt Only VTE Present on Admission: No VTE Mechan Device Prophylaxis: SCD's VTE Pharm Prophylaxis ordered?: Yes Subjective: Seated upright in ED bed, sleeping, difficult to arouse his recent aggressive pain regimen in the ED. Objective: Physical Examination: General: awakens to stimuli, but falling asleep quickly again, intermittently alert, recent aggressive ED pain regimen, once alert patient is oriented x 3, NAD currently, seated upright in the ED bed. Skin: normal color, turgor, no icterus, cyanosis. HEENT: AT/NC, EOMI, PERRLA, dry MM, no carotid bruits or JVD noted. Lungs: Diminished BS BL bases, moderate effort, no rales, ronchi or wheezing. Heart: Regular rate and rhythm; no gallop, rub audible. Abdomen: soft, recent ED pain regimen, no pain elicited on examination, ND, mildly decreased BS BL UQ, mildly hyperactive BS BL LQ, no HSM. Extremities: no cyanosis, clubbing, or edema. Neurological: awakens to stimuli, but falling asleep quickly again, intermittently alert, recent aggressive ED pain regimen, once alert patient is oriented x 3, NAD currently, seated upright in the ED bed; cognitive function not baseline intact, sedate with recent pain regimen; pupils equally reactive to light and accomodation; cranial nerves II-XII grossly normal, moving all 4 extremities, no focal deficits, strength moderately to severely globally decreased secondary to acute presentation and very lethargic with recent aggressive ED pain regimen. Psychiatric: affect appears flat, admits left AMA secondary to anxiety, but currently no acute evidence of depressive or anxiety feelings. - Physical Exam Vital Signs Temp Pulse Resp BP Pulse Ox 98 F 97 16 128/88 H 100 04/13/18 21:17 04/13/18 21:17 04/13/18 21:17 04/13/18 21:17 04/13/18 21:17 Oxygen Delivery Method Room Air Weight: 135 lb 12.876 oz Body Mass Index (BMI) 22.6 Microbiology Past 72 Hours 04/13/18 22:10 Influenza Types A,B Direct FA (SONIA) - Final Mucosa - Nasopharyngeal Laboratory Tests Past 24 Hrs 04/13/18 04/13/18 04/13/18 22:05 22:05 22:05 WBC Cancelled Corrected WBC Cancelled RBC Cancelled Hgb Cancelled Hct Cancelled MCV Cancelled MCH Cancelled MCHC Cancelled RDW Cancelled RDW Differential Cancelled Plt Count Cancelled MPV Cancelled Immature Gran % (Auto) Cancelled Neut % (Auto) Cancelled Lymph % (Auto) Cancelled [place] % (Auto) Cancelled Eos % (Auto) Cancelled Baso % (Auto) Cancelled Absolute Neuts (auto) Cancelled Absolute Lymphs (auto) Cancelled Total Counted Cancelled Neutrophils % (Manual) Cancelled Band Neutrophils % Cancelled Lymphocytes % (Manual) Cancelled Monocytes % (Manual) Cancelled Eosinophils % (Manual) Cancelled Basophils % (Manual) Cancelled Metamyelocytes % Cancelled Myelocytes % Cancelled Promyelocytes % Cancelled Blast Cells % Cancelled Plasma Cell % (Manual) Cancelled Other Cells % Cancelled Nucleated RBCs/100 WBC Cancelled Differential Comment Cancelled Diff Path Review Cancelled Hypersegmented Neuts Cancelled Atypical Lymphocytes Cancelled Reactive Lymphocytes Cancelled Smudge Cells Cancelled Toxic Granulation Cancelled Dohle Bodies Cancelled Cristine Rods Cancelled Platelet Estimate Cancelled Plt Morphology Comment Cancelled RBC Morphology Cancelled Polychromasia Cancelled Hypochromasia Cancelled Poikilocytosis Cancelled Basophilic Stippling Cancelled Anisocytosis Cancelled Microcytosis Cancelled Macrocytosis Cancelled Spherocytes Cancelled Sickle Cells Cancelled Target Cells Cancelled Tear Drop Cells Cancelled Ovalocytes Cancelled Stomatocytes Cancelled [place] Bodies Cancelled [place] Cells Cancelled Bite Cells Cancelled Acanthocytes (Spur) Cancelled Rouleaux Cancelled Schistocytes Cancelled Sodium Cancelled Potassium Cancelled Chloride Cancelled Carbon Dioxide Cancelled Anion Gap Cancelled BUN Cancelled Creatinine Cancelled Estim Creat Clear Calc Cancelled Est GFR (MDRD) Af Amer Cancelled Est GFR (MDRD) Non-Af Cancelled BUN/Creatinine Ratio Cancelled Glucose Cancelled Lactic Acid Cancelled Calcium Cancelled Total Bilirubin Cancelled AST Cancelled ALT Cancelled Alkaline Phosphatase Cancelled Total Protein Cancelled Albumin Cancelled Globulin Cancelled Albumin/Globulin Ratio Cancelled Lipase Cancelled Urine Color Urine Clarity Urine pH Ur Specific [place] Urine Protein Urine Glucose (UA) Urine Ketones Urine Occult Blood Urine Nitrite Urine Bilirubin Urine Urobilinogen Ur Leukocyte Esterase Urine RBC Urine WBC Ur Squamous Epith Cells Urine Bacteria Urine Mucus 04/13/18 04/13/18 04/13/18 22:20 23:40 23:40 WBC Corrected WBC RBC Hgb Hct MCV MCH MCHC RDW RDW Differential Plt Count MPV Immature Gran % (Auto) Neut % (Auto) Lymph % (Auto) [place] % (Auto) Eos % (Auto) Baso % (Auto) Absolute Neuts (auto) Absolute Lymphs (auto) Total Counted Neutrophils % (Manual) Band Neutrophils % Lymphocytes % (Manual) Monocytes % (Manual) Eosinophils % (Manual) Basophils % (Manual) Metamyelocytes % Myelocytes % Promyelocytes % Blast Cells % Plasma Cell % (Manual) Other Cells % Nucleated RBCs/100 WBC Differential Comment Diff Path Review Hypersegmented Neuts Atypical Lymphocytes Reactive Lymphocytes Smudge Cells Toxic Granulation Dohle Bodies Cristine Rods Platelet Estimate Plt Morphology Comment RBC Morphology Polychromasia Hypochromasia Poikilocytosis Basophilic Stippling Anisocytosis Microcytosis Macrocytosis Spherocytes Sickle Cells Target Cells Tear Drop Cells Ovalocytes Stomatocytes [place] Bodies [place] Cells Bite Cells Acanthocytes (Spur) Rouleaux Schistocytes Sodium Pending Potassium Pending Chloride Pending Carbon Dioxide Pending Anion Gap Pending BUN Pending Creatinine Pending Estim Creat Clear Calc Est GFR (MDRD) Af Amer Pending Est GFR (MDRD) Non-Af Pending BUN/Creatinine Ratio Pending Glucose Pending Lactic Acid Pending Calcium Pending Total Bilirubin Pending AST Pending ALT Pending Alkaline Phosphatase Pending Total Protein Pending Albumin Pending Globulin Albumin/Globulin Ratio Lipase Pending Urine Color Yellow Urine Clarity Sl. Cloudy Urine pH 6.0 Ur Specific [place] 1.025 Urine Protein 15 H Urine Glucose (UA) Normal Urine Ketones Negative Urine Occult Blood 250 H Urine Nitrite Negative Urine Bilirubin Negative Urine Urobilinogen Normal Ur Leukocyte Esterase 25 H Urine RBC > 100 SEEN Urine WBC 0-5 SEEN Ur Squamous Epith Cells 0-5 SEEN Urine Bacteria 0 SEEN Urine Mucus 1+ 04/13/18 23:40 WBC 6.8 Corrected WBC RBC 4.09 L Hgb 13.2 Hct 41.3 MCV 101.0 H MCH 32.3 H MCHC 32.0 RDW 13.2 RDW Differential 48.5 H Plt Count 170 MPV 10.8 Immature Gran % (Auto) 0.100 Neut % (Auto) 55.7 Lymph % (Auto) 30.7 [place] % (Auto) 10.5 H Eos % (Auto) 2.4 Baso % (Auto) 0.6 Absolute Neuts (auto) 3.8 Absolute Lymphs (auto) 2.08 Total Counted Not Reportable Neutrophils % (Manual) Band Neutrophils % Lymphocytes % (Manual) Monocytes % (Manual) Eosinophils % (Manual) Basophils % (Manual) Metamyelocytes % Myelocytes % Promyelocytes % Blast Cells % Plasma Cell % (Manual) Other Cells % Nucleated RBCs/100 WBC Differential Comment Diff Path Review Hypersegmented Neuts Atypical Lymphocytes Reactive Lymphocytes Smudge Cells Toxic Granulation Dohle Bodies Cristine Rods Platelet Estimate Plt Morphology Comment RBC Morphology Polychromasia Hypochromasia Poikilocytosis Basophilic Stippling Anisocytosis Microcytosis Macrocytosis Spherocytes Sickle Cells Target Cells Tear Drop Cells Ovalocytes Stomatocytes [place] Bodies [place] Cells Bite Cells Acanthocytes (Spur) Rouleaux Schistocytes Sodium Potassium Chloride Carbon Dioxide Anion Gap BUN Creatinine Estim Creat Clear Calc Est GFR (MDRD) Af Amer Est GFR (MDRD) Non-Af BUN/Creatinine Ratio Glucose Lactic Acid Calcium Total Bilirubin AST ALT Alkaline Phosphatase Total Protein Albumin Globulin Albumin/Globulin Ratio Lipase Urine Color Urine Clarity Urine pH Ur Specific [place] Urine Protein Urine Glucose (UA) Urine Ketones Urine Occult Blood Urine Nitrite Urine Bilirubin Urine Urobilinogen Ur Leukocyte Esterase Urine RBC Urine WBC Ur Squamous Epith Cells Urine Bacteria Urine Mucus Assessment/Plan All Active Problems Abdominal pain (Acute) Nausea (Acute) The patient is a 48 y/o F w/ PMHx: Ovarian CA Dx 2007 s/p Hysterectomy w/ BL CELSO s/p chemotherapy in Remission following w/ Hem/Onc at [facility], Anxiety and Depression, GERD, Tobacco use who presents to the [facility] ED on 04/13/18, following recently leaving [facility] on 04/08/18 with history of ongoing cramping and severe sharp, 10/10, intermittent primarily L sided abdominal pain w/ nausea with occasional emesis with poor oral intake since leaving, and that the bouts of emesis are so severe that she has had some very mild minimal blood streak secondary to retching. (1) Abdominal Pain, Nausea, Emesis, Unclear Exact Etiology, Possible Enteritis: Recent admission w/ CT abdomen pelvis with apparent acute inflammation and localized ileus of the proximal small bowel involving primarily the duodenum and proximal jejunum with possible fecal stasis within the transverse colon and right colon possibly resulting in ileus possibly secondary to the resolving acute infection or inflammation of the small bowel, sigmoid colon diverticulosis with some thickening of the gauthier of the sigmoid colon, evaluation per Dr. Stacy with recommendation for endoscopy to assess cause for duodenal and jejunal dilation of her patient had left AMA secondary to per discussions with her anxiety. Will admit to medical surgical floor, maintain n.p.o. status, continue IV fluids given dehydration, PRN IV and oral pain regimen, PRN antiemetics, consult Dr. Stacy for initiation of endoscopy, IV PPI, given appearance in the ED with no severe market discomfort following pain regimen, stable vital signs, CBC with no market WBC elevation or left shift will defer antibiotic therapy at this time as had noted enteritis prior. (2) Anxiety and Depression/Bipolar disorder: Continue home lamictal, xanax regimen. (3) History of Ovarian CA: Dx 2006 s/p Hysterectomy w/ BL CELSO s/p chemotherapy in Remission following w/ Hem/Onc at [facility]. (4) Tobacco Abuse: Encouraged cessation, inpatient consultation per RT, NR if desired. (5) Hematuria, Unclear Etiology: No recent dysuria, had not noticed any gross hematuria, UCx pending. (6) GERD: IV PPI. (7) DVT Prophylaxis: SCDs, lovenox. Code Visit OBSV E&M: 16950 Initial observation care L3
[2018-04-13 23:55] VITALS: BP 103/64; PULSE 70; RESP 13; O2SAT 94
[2018-04-14 00:12] LABS: ALB/GLOB Ratio 0.9 RATIO (0.9-2.4); AST(SGOT) 19 U/L (15-37); Alanine Aminotransfer ALT/SGPT 25 U/L (13-56); Albumin, Serum 3.2 g/dL (3.2-5.0); Alkaline Phosphatase 72 U/L (45-117); Anion Gap 6 (5-15); BUN 17 mg/dL (7-18); BUN/Creat Ratio 22.3 RATIO (10-20); Calcium,Total 8.1 mg/dL (8.5-10.1); Chloride 108 mmol/L (98-107); Creatinine, Serum 0.76 mg/dL (0.55-1.02); EST Glomerular Filtration Rate 87 mL/min (>60); Est Glom Filt Rate - Afr Amer 105 mL/min (>60); Estimated Creatinine Clearance 82.34 ml/min; Globulin 3.5 g/dL (2.2-4.2); Glucose 79 mg/dL (74-106); Lipase 171 U/L (73-393); Potassium 3.8 mmol/L (3.5-5.1); Protein, Total 6.7 g/dL (6.4-8.2); Sodium Level 142 mmol/L (136-145)
[2018-04-14 00:33] LABS: Lactic Acid 0.8 mmol/L (0.4-2.0)
[2018-04-14 00:47] VITALS: BP 100/62; PULSE 66; RESP 16; TEMP 36.4; O2SAT 94
[2018-04-14 00:49] VITALS: BMI 22.0
[2018-04-14 00:51] VITALS: BMI 22.0
[2018-04-14 00:59] LABS: Magnesium 1.7 mg/dL (1.6-2.6)
[2018-04-14] MEDS: 0.9% Normal Saline 1,000 ML 125 ML IV ×3 (02:52→18:12)
[2018-04-14 06:21] LABS: Absolute Lymphocyte Count 1.81 X10^3/ul (0.83-4.51); Absolute Neutrophil Count 2.4 X10^3/uL (2.0-7.7); Basophil# 0.03 X10^3/uL; Basophil% 0.6 % (0-1); Eosinophil# 0.19 X10^3/uL; Eosinophils% 3.9 % (0-5); Hematocrit 41.3 % (37-47); Hemoglobin 13.2 g/dl (12.0-15.0); Lymphocyte # 1.81 X10^3/ul (4.0); Lymphocyte % 36.9 % (19-41); Mean Corpuscular Hgb 32.2 pg (27.0-32.0); Mean Corpuscular Volume 100.7 fL (81-99); Mean Platelet Vol. 10.7 fl (6.2-12.0); Monocyte# 0.45 X10^3/uL; Monocyte% 9.2 % (0-10); Neutrophil # 2.41 X10^3/uL (2.7-7.7); Neutrophil % 49.2 % (47-70); Platelet Count 178 K/mm3 (150-450); RBC Distribution Width CV 13.1 % (11.6-14.6); RBC Distribution Width SD 47.8 fl (35.1-43.9); White Blood Count 4.9 K/mm3 (4.4-11.0)
[2018-04-14 06:23] LABS: POSITIVE COUNT NO; POSITIVE DIFFERENTIAL NO; POSITIVE MORPHOLOGY NO
[2018-04-14 06:42] LABS: Anion Gap 6 (5-15); BUN 13 mg/dL (7-18); BUN/Creat Ratio 19.8 RATIO (10-20); Chloride 114 mmol/L (98-107); Creatinine, Serum 0.66 mg/dL (0.55-1.02); EST Glomerular Filtration Rate 102 mL/min (>60); Est Glom Filt Rate - Afr Amer 124 mL/min (>60); Estimated Creatinine Clearance 94.82 ml/min; Glucose 91 mg/dL (74-106); Potassium 3.8 mmol/L (3.5-5.1); Sodium Level 145 mmol/L (136-145)
[2018-04-14 06:48] VITALS: BP 104/61; PULSE 75; RESP 16; TEMP 36.4; O2SAT 94
--- NOTE | 2018-04-14 09:50 | PCM.PN.HOSP ---
Subjective: Patient seen and examined. She was admitted with a complaint of left-sided abdominal pain. She was recently admitted and left AMA after she presented with the same symptoms. Patient states she was scared of having an EGD and colonoscopy that is why she left. Pain still persisted and so she came into the ED was admitted to a monitored bed and is to be managed for left-sided abdominal pain of unknown etiology. General surgery consulted. Seen and examined. She still complains of pain and rates at about 7/10. She denies any fever or chills, but admits to nausea. She denies any vomiting or diarrhea. Review of systems otherwise negative. She is currently n.p.o. and is awaiting general surgery evaluation. Labs and vitals reviewed. Patient does states that previously she had a EGD and polyps were found. She does not know whether they were removed or not. She is scared of having another EGD and colonoscopy because she is concerned that polyps may have been malignant and is what is causing her abdominal pain. Vitals/I&O's: Vital Signs Temp Pulse Resp BP Pulse Ox 97.5 F L 75 16 104/61 94 04/14/18 06:48 04/14/18 06:48 04/14/18 06:48 04/14/18 06:48 04/14/18 06:48 Oxygen Delivery Method Room Air Weight: 132 lb 7.965 oz Body Mass Index (BMI) 22.0 Intake and Output for Last 24 Hours 04/12/18 04/13/18 04/14/18 23:59 23:59 23:59 Intake Total 634 / 634 Output Total 600 / 600 Balance 34 / 34 General: Alert, Oriented x3, Cooperative, No apparent distress HEENT: Atraumatic, PERRLA, EOMI, Normocephalic Oral: Dry Mucosa Neck: Supple, No JVD, Negative Carotid Bruits Lungs: Clear to auscultation, Normal air movement, No rhonchi, No wheeze, No rales Cardiovascular: Regular rate, Regular Rhythm, Normal S1, Normal S2, No murmurs Abdomen: Bowel Sounds Present, Soft, Non Tender, Non-Distended, No Hepato-splenomegaly Extremities: No clubbing, No cyanosis, No edema, Capillary Refill Less than 3 Seconds Skin: No rashes, No breakdown Musculoskeletal: No Tenderness to Palpation of Joints or Extremities Lymphatic: No Cervical, Supraclavicular, or Inguinal Adenopathy Neurological: Cranial nerves II-XII grossly intact, Neuro grossly intact, Motor Exam 5/5 strength throughout Psych/Mental Status: Normal Affect, Appropriate, Alert and oriented to time, place, person, mood and affect Microbiology Past 72 Hours 04/13/18 22:10 Mucosa - Nasopharyngeal Influenza Types A,B Direct FA (SONIA) - Final Laboratory Results 04/13/18 22:05: WBC Cancelled, Corrected WBC Cancelled, RBC Cancelled, Hgb Cancelled, Hct Cancelled, MCV Cancelled, MCH Cancelled, MCHC Cancelled, RDW Cancelled, RDW Differential Cancelled, Plt Count Cancelled, MPV Cancelled, Immature Gran % (Auto) Cancelled, Neut % (Auto) Cancelled, Lymph % (Auto) Cancelled, [place] % (Auto) Cancelled, Eos % (Auto) Cancelled, Baso % (Auto) Cancelled, Absolute Neuts (auto) Cancelled, Absolute Lymphs (auto) Cancelled, Total Counted Cancelled, Neutrophils % (Manual) Cancelled, Band Neutrophils % Cancelled, Lymphocytes % (Manual) Cancelled, Monocytes % (Manual) Cancelled, Eosinophils % (Manual) Cancelled, Basophils % (Manual) Cancelled, Metamyelocytes % Cancelled, Myelocytes % Cancelled, Promyelocytes % Cancelled, Blast Cells % Cancelled, Plasma Cell % (Manual) Cancelled, Other Cells % Cancelled, Nucleated RBCs/100 WBC Cancelled, Differential Comment Cancelled, Diff Path Review Cancelled, Hypersegmented Neuts Cancelled, Atypical Lymphocytes Cancelled, Reactive Lymphocytes Cancelled, Smudge Cells Cancelled, Toxic Granulation Cancelled, Dohle Bodies Cancelled, Cristine Rods Cancelled, Platelet Estimate Cancelled, Plt Morphology Comment Cancelled, RBC Morphology Cancelled, Polychromasia Cancelled, Hypochromasia Cancelled, Poikilocytosis Cancelled, Basophilic Stippling Cancelled, Anisocytosis Cancelled, Microcytosis Cancelled, Macrocytosis Cancelled, Spherocytes Cancelled, Sickle Cells Cancelled, Target Cells Cancelled, Tear Drop Cells Cancelled, Ovalocytes Cancelled, Stomatocytes Cancelled, Antoine-Turrell Bodies Cancelled, [place] Cells Cancelled, Bite Cells Cancelled, Acanthocytes (Spur) Cancelled, Rouleaux Cancelled, Schistocytes Cancelled 04/13/18 22:05: Sodium Cancelled, Potassium Cancelled, Chloride Cancelled, Carbon Dioxide Cancelled, Anion Gap Cancelled, BUN Cancelled, Creatinine Cancelled, Estim Creat Clear Calc Cancelled, Est GFR (MDRD) Af Amer Cancelled, Est GFR (MDRD) Non-Af Cancelled, BUN/Creatinine Ratio Cancelled, Glucose Cancelled, Calcium Cancelled, Total Bilirubin Cancelled, AST Cancelled, ALT Cancelled, Alkaline Phosphatase Cancelled, Total Protein Cancelled, Albumin Cancelled, Globulin Cancelled, Albumin/Globulin Ratio Cancelled, Lipase Cancelled 04/13/18 22:05: Lactic Acid Cancelled 04/13/18 22:20: Urine Color Yellow, Urine Clarity Sl. Cloudy, Urine pH 6.0, Ur Specific [place] 1.025, Urine Protein 15 H, Urine Glucose (UA) Normal, Urine Ketones Negative, Urine Occult Blood 250 H, Urine Nitrite Negative, Urine Bilirubin Negative, Urine Urobilinogen Normal, Ur Leukocyte Esterase 25 H, Urine RBC > 100 SEEN, Urine WBC 0-5 SEEN, Ur Squamous Epith Cells 0-5 SEEN, Urine Bacteria 0 SEEN, Urine Mucus 1+ 04/13/18 23:40: Sodium 142, Potassium 3.8, Chloride 108 H, Carbon Dioxide 28.0, Anion Gap 6, BUN 17, Creatinine 0.76, Estim Creat Clear Calc 82.34, Est GFR (MDRD) Af Amer 105, Est GFR (MDRD) Non-Af 87, BUN/Creatinine Ratio 22.3 H, Glucose 79, Calcium 8.1 L, Total Bilirubin 0.30, AST 19, ALT 25, Alkaline Phosphatase 72, Total Protein 6.7, Albumin 3.2, Globulin 3.5, Albumin/Globulin Ratio 0.9, Lipase 171 04/13/18 23:40: Lactic Acid 0.8 04/13/18 23:40: WBC 6.8, RBC 4.09 L, Hgb 13.2, Hct 41.3, MCV 101.0 H, MCH 32.3 H, MCHC 32.0, RDW 13.2, RDW Differential 48.5 H, Plt Count 170, MPV 10.8, Immature Gran % (Auto) 0.100, Neut % (Auto) 55.7, Lymph % (Auto) 30.7, [place] % (Auto) 10.5 H, Eos % (Auto) 2.4, Baso % (Auto) 0.6, Absolute Neuts (auto) 3.8, Absolute Lymphs (auto) 2.08, Total Counted Not Reportable 04/13/18 23:40: Magnesium 1.7 04/14/18 06:05: WBC 4.9, RBC 4.10 L, Hgb 13.2, Hct 41.3, MCV 100.7 H, MCH 32.2 H, MCHC 32.0, RDW 13.1, RDW Differential 47.8 H, Plt Count 178, MPV 10.7, Immature Gran % (Auto) 0.200, Neut % (Auto) 49.2, Lymph % (Auto) 36.9, [place] % (Auto) 9.2, Eos % (Auto) 3.9, Baso % (Auto) 0.6, Absolute Neuts (auto) 2.4, Absolute Lymphs (auto) 1.81, Total Counted Not Reportable 04/14/18 06:05: Sodium 145, Potassium 3.8, Chloride 114 H, Carbon Dioxide 25.0, Anion Gap 6, BUN 13, Creatinine 0.66, Estim Creat Clear Calc 94.82, Est GFR (MDRD) Af Amer 124, Est GFR (MDRD) Non-Af 102, BUN/Creatinine Ratio 19.8, Glucose 91, Calcium 8.0 L Current Medications Acetaminophen (Tylenol) 650 mg PO Q6H PRN PRN PRN Reason: Non-cardiac pain (mod-severe) Hydrocodone Bitart/Acetaminophen ([place] 5mg-325mg) 1 - 2 tablet PO Q6H PRN PRN PRN Reason: Moderate-severe pain Al Hydroxide/Mg Hydroxide (Mylanta Ii) 30 ml PO Q6H PRN PRN PRN Reason: Gastric burning Albuterol Sulfate (Ventolin Aerosols) 2.5 mg INHALATION Q2H PRN PRN PRN Reason: DYSPNEA, WHEEZING Alprazolam (Xanax) 1 mg PO TID PRN PRN PRN Reason: ANXIETY Enoxaparin Sodium (Lovenox) 40 mg SC DAILY@1000 KARLY Hydralazine HCl (Apresoline Iv) 10 mg IV Q4H PRN PRN PRN Reason: SBP > 160 Sodium Chloride () 1,000 mls @ 125 mls/hr IV .Q8H [facility] Last Admin: 04/14/18 02:52 Dose: 125 mls/hr Pantoprazole Sodium 40 mg/ (Sodium Chloride) 110 mls @ 330 mls/hr IV Q12 [facility] Last Admin: 04/14/18 01:05 Dose: 330 mls/hr Lamotrigine (Lamictal) 300 mg PO QHS [facility] Magnesium Hydroxide (Milk Of Magnesia) 30 ml PO DAILY PRN PRN PRN Reason: Constipation Morphine Sulfate () 1 - 2 mg IV Q4H PRN PRN PRN Reason: PAIN Nicotine (Nicoderm Cq (Pbkc)) 14 mg TRANSDERM. DAILY [facility] Last Admin: 04/14/18 01:09 Dose: 14 mg Promethazine HCl (Phenergan) 6.25 mg IV Q4H PRN PRN PRN Reason: NAUSEA/VOMITING Sodium Chloride () 5 - 15 ml IV UD PRN PRN Reason: SALINE FLUSH Medical Necessity - Tobacco Use Smoking Status: Current every day smoker - Smokes ~ 1/2 pack/day. Tobacco Use: Cigarettes Assessment/Plan All Active Problems Abdominal pain (Acute) Nausea (Acute) 1. Abdominal pain of unclear etiology Still complains of left-sided abdominal pain. Was recently admitted with similar symptoms and had a CT of the abdomen and pelvis(04/07/18) done which showed acute inflammation and localized ileus of the proximal small bowel involving primarily the duodenum and proximal jejunum with possible fecal stasis in transverse colon and right colon, diverticulosis and possible ileus. General surgery consulted. Awaiting records. Currently n.p.o. On IV Zofran as needed. On IV pantoprazole. IV morphine prn 2/ Anxiety, depression and bipolar disorder on xanax and lamictal 3. History of ovarian cancer s/p hysterectomy with bilateral salpingoopherectomy had chemotherapy and is currently in remission. Follows up with oncologist at [facility] 4. Hematuria: Urine occult blood was 250 with RBC more than 100. Notes that her menstrual cycle on account of hysterectomy in the past. No bacteria seen. Urine cultures pending. 5. Nicotine dependence: counselled on cessation. Nicotine patch 21mg daily. 6. GERD: On IV PPI DVT prophylaxis: SCDs and Lovenox Code Visit OBSV E&M: 79915 Subsequent observation care L3
--- NOTE | 2018-04-14 09:55 | PN_ITS ---
Subjective: Patient seen and examined. She was admitted with a complaint of left-sided abdominal pain. She was recently admitted and left AMA after she presented with the same symptoms. Patient states she was scared of having an EGD and colonoscopy that is why she left. Pain still persisted and so she came into the ED was admitted to a monitored bed and is to be managed for left-sided abdominal pain of unknown etiology. General surgery consulted. Seen and examined. She still complains of pain and rates at about 7/10. She denies any fever or chills, but admits to nausea. She denies any vomiting or diarrhea. Review of systems otherwise negative. She is currently n.p.o. and is awaiting general surgery evaluation. Labs and vitals reviewed. Patient does states that previously she had a EGD and polyps were found. She does not know whether they were removed or not. She is scared of having another EGD and colonoscopy because she is concerned that polyps may have been malignant and is what is causing her abdominal pain. Vitals/I&O's: Vital Signs Temp Pulse Resp BP Pulse Ox 97.5 F L 75 16 104/61 94 04/14/18 06:48 04/14/18 06:48 04/14/18 06:48 04/14/18 06:48 04/14/18 06:48 Oxygen Delivery Method Room Air Weight: 132 lb 7.965 oz Body Mass Index (BMI) 22.0 Intake and Output for Last 24 Hours 04/12/18 04/13/18 04/14/18 23:59 23:59 23:59 Intake Total 634 / 634 Output Total 600 / 600 Balance 34 / 34 General: Alert, Oriented x3, Cooperative, No apparent distress HEENT: Atraumatic, PERRLA, EOMI, Normocephalic Oral: Dry Mucosa Neck: Supple, No JVD, Negative Carotid Bruits Lungs: Clear to auscultation, Normal air movement, No rhonchi, No wheeze, No rales Cardiovascular: Regular rate, Regular Rhythm, Normal S1, Normal S2, No murmurs Abdomen: Bowel Sounds Present, Soft, Non Tender, Non-Distended, No Hepato- splenomegaly Extremities: No clubbing, No cyanosis, No edema, Capillary Refill Less than 3 Seconds Skin: No rashes, No breakdown Musculoskeletal: No Tenderness to Palpation of Joints or Extremities Lymphatic: No Cervical, Supraclavicular, or Inguinal Adenopathy Neurological: Cranial nerves II-XII grossly intact, Neuro grossly intact, Motor Exam 5/5 strength throughout Psych/Mental Status: Normal Affect, Appropriate, Alert and oriented to time, place, person, mood and affect Microbiology Past 72 Hours 04/13/18 22:10 Mucosa - Nasopharyngeal Influenza Types A,B Direct FA ([facility]) - Final Laboratory Results 04/13/18 22:05: WBC Cancelled, Corrected WBC Cancelled, RBC Cancelled, Hgb Cancelled, Hct Cancelled, MCV Cancelled, MCH Cancelled, MCHC Cancelled, RDW Cancelled, RDW Differential Cancelled, Plt Count Cancelled, MPV Cancelled, Immature Gran % (Auto) Cancelled, Neut % (Auto) Cancelled, Lymph % (Auto) Cancelled, [place] % (Auto) Cancelled, Eos % (Auto) Cancelled, Baso % (Auto) Cancelled, Absolute Neuts (auto) Cancelled, Absolute Lymphs (auto) Cancelled, Total Counted Cancelled, Neutrophils % (Manual) Cancelled, Band Neutrophils % Cancelled, Lymphocytes % (Manual) Cancelled, Monocytes % (Manual) Cancelled, Eosinophils % (Manual) Cancelled, Basophils % (Manual) Cancelled, Metamyelocytes % Cancelled, Myelocytes % Cancelled, Promyelocytes % Cancelled, Blast Cells % Cancelled, Plasma Cell % (Manual) Cancelled, Other Cells % Cancelled, Nucleated RBCs/100 WBC Cancelled, Differential Comment Cancelled, Diff Path Review Cancelled, Hypersegmented Neuts Cancelled, Atypical Lymphocytes Cancelled, Reactive Lymphocytes Cancelled, Smudge Cells Cancelled, Toxic Granulation Cancelled, Dohle Bodies Cancelled, Cristine Rods Cancelled, Platelet Estimate Cancelled, Plt Morphology Comment Cancelled, RBC Morphology Cancelled, Polychromasia Cancelled, Hypochromasia Cancelled, Poikilocytosis Cancelled, Basophilic Stippling Cancelled, Anisocytosis Cancelled, Microcytosis Cancelled, Macrocytosis Cancelled, Spherocytes Cancelled, Sickle Cells Cancelled, Target Cells Cancelled, Tear Drop Cells Cancelled, Ovalocytes Cancelled, Stomatocytes Cancelled, Antoine-Laurium Bodies Cancelled, [place] Cells Cancelled, Bite Cells Cancelled, Acanthocytes (Spur) Cancelled, Rouleaux Cancelled, Schistocytes Cancelled 04/13/18 22:05: Sodium Cancelled, Potassium Cancelled, Chloride Cancelled, Carbon Dioxide Cancelled, Anion Gap Cancelled, BUN Cancelled, Creatinine Cancelled, Estim Creat Clear Calc Cancelled, Est GFR (MDRD) Af Amer Cancelled, Est GFR (MDRD) Non-Af Cancelled, BUN/Creatinine Ratio Cancelled, Glucose Cancelled, Calcium Cancelled, Total Bilirubin Cancelled, AST Cancelled, ALT Cancelled, Alkaline Phosphatase Cancelled, Total Protein Cancelled, Albumin Cancelled, Globulin Cancelled, Albumin/Globulin Ratio Cancelled, Lipase Cancelled 04/13/18 22:05: Lactic Acid Cancelled 04/13/18 22:20: Urine Color Yellow, Urine Clarity Sl. Cloudy, Urine pH 6.0, Ur Specific [place] 1.025, Urine Protein 15 H, Urine Glucose (UA) Normal, Urine Ketones Negative, Urine Occult Blood 250 H, Urine Nitrite Negative, Urine Bilirubin Negative, Urine Urobilinogen Normal, Ur Leukocyte Esterase 25 H, Urine RBC > 100 SEEN, Urine WBC 0-5 SEEN, Ur Squamous Epith Cells 0-5 SEEN, Urine Bacteria 0 SEEN, Urine Mucus 1+ 04/13/18 23:40: Sodium 142, Potassium 3.8, Chloride 108 H, Carbon Dioxide 28.0, Anion Gap 6, BUN 17, Creatinine 0.76, Estim Creat Clear Calc 82.34, Est GFR (MDRD) Af Amer 105, Est GFR (MDRD) Non-Af 87, BUN/Creatinine Ratio 22.3 H, Glucose 79, Calcium 8.1 L, Total Bilirubin 0.30, AST 19, ALT 25, Alkaline Phosphatase 72, Total Protein 6.7, Albumin 3.2, Globulin 3.5, Albumin/Globulin Ratio 0.9, Lipase 171 04/13/18 23:40: Lactic Acid 0.8 04/13/18 23:40: WBC 6.8, RBC 4.09 L, Hgb 13.2, Hct 41.3, MCV 101.0 H, MCH 32.3 H , MCHC 32.0, RDW 13.2, RDW Differential 48.5 H, Plt Count 170, MPV 10.8, Immature Gran % (Auto) 0.100, Neut % (Auto) 55.7, Lymph % (Auto) 30.7, [place] % (Auto) 10.5 H, Eos % (Auto) 2.4, Baso % (Auto) 0.6, Absolute Neuts (auto) 3.8, Absolute Lymphs (auto) 2.08, Total Counted Not Reportable 04/13/18 23:40: Magnesium 1.7 04/14/18 06:05: WBC 4.9, RBC 4.10 L, Hgb 13.2, Hct 41.3, MCV 100.7 H, MCH 32.2 H , MCHC 32.0, RDW 13.1, RDW Differential 47.8 H, Plt Count 178, MPV 10.7, Immature Gran % (Auto) 0.200, Neut % (Auto) 49.2, Lymph % (Auto) 36.9, [place] % (Auto) 9.2, Eos % (Auto) 3.9, Baso % (Auto) 0.6, Absolute Neuts (auto) 2.4, Absolute Lymphs (auto) 1.81, Total Counted Not Reportable 04/14/18 06:05: Sodium 145, Potassium 3.8, Chloride 114 H, Carbon Dioxide 25.0, Anion Gap 6, BUN 13, Creatinine 0.66, Estim Creat Clear Calc 94.82, Est GFR (MDRD) Af Amer 124, Est GFR (MDRD) Non-Af 102, BUN/Creatinine Ratio 19.8, Glucose 91, Calcium 8.0 L Current Medications Acetaminophen (Tylenol) 650 mg PO Q6H PRN PRN PRN Reason: Non-cardiac pain (mod-severe) Hydrocodone Bitart/Acetaminophen ([place] 5mg-325mg) 1 - 2 tablet PO Q6H PRN PRN PRN Reason: Moderate-severe pain Al Hydroxide/Mg Hydroxide (Mylanta Ii) 30 ml PO Q6H PRN PRN PRN Reason: Gastric burning Albuterol Sulfate (Ventolin Aerosols) 2.5 mg INHALATION Q2H PRN PRN PRN Reason: DYSPNEA, WHEEZING Alprazolam (Xanax) 1 mg PO TID PRN PRN PRN Reason: ANXIETY Enoxaparin Sodium (Lovenox) 40 mg SC DAILY@1000 KARLY Hydralazine HCl (Apresoline Iv) 10 mg IV Q4H PRN PRN PRN Reason: SBP > 160 Sodium Chloride () 1,000 mls @ 125 mls/hr IV .Q8H [facility] Last Admin: 04/14/18 02:52 Dose: 125 mls/hr Pantoprazole Sodium 40 mg/ (Sodium Chloride) 110 mls @ 330 mls/hr IV Q12 [facility] Last Admin: 04/14/18 01:05 Dose: 330 mls/hr Lamotrigine (Lamictal) 300 mg PO QHS [facility] Magnesium Hydroxide (Milk Of Magnesia) 30 ml PO DAILY PRN PRN PRN Reason: Constipation Morphine Sulfate () 1 - 2 mg IV Q4H PRN PRN PRN Reason: PAIN Nicotine (Nicoderm Cq (Pbkc)) 14 mg TRANSDERM. DAILY [facility] Last Admin: 04/14/18 01:09 Dose: 14 mg Promethazine HCl (Phenergan) 6.25 mg IV Q4H PRN PRN PRN Reason: NAUSEA/VOMITING Sodium Chloride () 5 - 15 ml IV UD PRN PRN Reason: SALINE FLUSH Medical Necessity - Tobacco Use Smoking Status: Current every day smoker - Smokes ~ 1/2 pack/day. Tobacco Use: Cigarettes Assessment/Plan All Active Problems Abdominal pain (Acute) Nausea (Acute) 1. Abdominal pain of unclear etiology * Still complains of left-sided abdominal pain. * Was recently admitted with similar symptoms and had a CT of the abdomen and pelvis(04/07/18) done which showed acute inflammation and localized ileus of the proximal small bowel involving primarily the duodenum and proximal jejunum with possible fecal stasis in transverse colon and right colon, diverticulosis and possible ileus. * General surgery consulted. Awaiting records. * Currently n.p.o. On IV Zofran as needed. On IV pantoprazole. * IV morphine prn * 2/ Anxiety, depression and bipolar disorder * on xanax and lamictal * 3. History of ovarian cancer * s/p hysterectomy with bilateral salpingoopherectomy * had chemotherapy and is currently in remission. * Follows up with oncologist at [facility] * 4. Hematuria: * Urine occult blood was 250 with RBC more than 100. * Notes that her menstrual cycle on account of hysterectomy in the past. * No bacteria seen. Urine cultures pending. * 5. Nicotine dependence: counselled on cessation. Nicotine patch 21mg daily. 6. GERD: On IV PPI DVT prophylaxis: SCDs and Lovenox Code Visit OBSV E&M: 51264 Subsequent observation care L3
[2018-04-14] MEDS: Morphine 2 MG/ML Syringe IV ×4 (10:17→22:51)
[2018-04-14] MEDS: 0.9% NaCl Peripheral Flush Adult/Peds IV ×4 (10:18→20:26)
--- NOTE | 2018-04-14 12:31 | NURSING ---
Dr. Duggan called in and stated that she will be in later today. She states that she wants pt to be on clear liquid diet starting now- and to have costaly initiated this afternoon at 1700 for colonoscopy tomorrow. Orders entered and pt updated regarding POC- understanding verbalized by pt and her .
[2018-04-14] MEDS: HYDROcodone Bitartrate/Apap 5/325 Tablet PO ×2 (13:18→20:25)
[2018-04-14 13:25] VITALS: BP 139/90; PULSE 67; RESP 18; TEMP 36.8; O2SAT 99
[2018-04-14 14:26] VITALS: O2SAT 99
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
--- NOTE | 2018-04-14 15:37 | CASEMGMT ---
Social Work Note Horticultural Services Supervisor informed this worker that pt would like advanced directives documents. SW met with pt. SW provided pt with Advanced Documents. SW encouraged pt to review documents tonight and speak with the individual(s) she would like to name her agents and this worker can check back with pt tomorrow and complete documents with pt. SW provided pt with resources regarding food graham/pantries and furniture donations. SW to meet with pt tomorrow to complete advanced directives. Joana Reeder ORIENTAL RUG STRETCHER, STONE SPLITTER
[2018-04-14 18:14] VITALS: BP 118/74; PULSE 59; RESP 18; TEMP 36.6; O2SAT 100
--- NOTE | 2018-04-14 19:17 | CON.PCM_ITS ---
- Consult Date of Consult: 04/14/18 - Reason for Consult I am seeing patient for Dr. Stacy who was asked to see patient by Dr. Vazquez History of present illness The patient is a 48 year old WF who was previously admitted to the hospital on 04/07/18 for abdominal pain and nausea. She was offered evaluation with upper and lower endoscopy, but patient refused and signed out of hospital AMA. She has anxiety issues. She now presents with increasing abdominal pain. States pain is severe - can't find any comfortable position and it is diffuse. Admitted with normal WBC and normal Hct and normal lactic acid, but since in hospital - lower WBC and lower Plt. Also complains of poor appetite, hasn't eaten a full meal in days. Last admission CT scan: IMPRESSION: 1. Apparent acute inflammation and localized ileus of the proximal small bowel involving primarily the duodenum and proximal jejunum. Possible fecal stasis within the transverse colon and right colon may be the result of an ileus as well. This may be result of acute infection or inflammation of small bowel. 2. Sigmoid colon diverticulosis. There is thickening of the gauthier of sigmoid colon which may in part be related to nondistention. Acute infection or inflammation cannot be excluded. The patient is also noted to have a history of ovarian cancer. She states she was stage IV ovarian cancer. She understood she had a radical hysterectomy with surgery which she describes was resection of part of her colon and small bowel and appendix. She states this was performed at [facility] [place] 2006. Past Medical History History of ovarian cancer (Chronic) - stage 4 anxiety disorder Allergies ondansetron [From Zofran] Allergy Shortness of breath aspirin Adverse Reaction Other BLISTER ibuprofen [From Motrin] Adverse Reaction Other BLISTER levofloxacin [From Levaquin] Adverse Reaction Other BLISTER NSAIDS (Non-Steroidal Anti-Inflamma Adverse Reaction Other BLISTER Home Medications: ALPRAZolam [Xanax] 1 mg PO TID PRN PRN 04/07/18 Lamotrigine [Lamictal] 300 mg PO QHS 04/07/18 Zolpidem Tartrate [Ambien 10 mg PO QHS PRN PRN 04/07/18 (Generic)] Past Surgical History: radical hysterectomy with additional resections for ovarian cancer Social history: Smoking Status: Current every day smoker Review of systems - see HPI, otherwise non contributory Physical Exam General: Alert, Oriented x3, Cooperative Lungs: Clear to auscultation, Normal air movement Cardiovascular: Regular rate, No murmurs Abdomen: Bowel Sounds Present, Soft, diffusely tender without peritoneal signs Vital Signs Temp Pulse Resp BP Pulse Ox 97.8 F 63 18 114/72 99 Assessment/Plan Abdominal pain (Acute) Nausea (Acute) I have discussed above with patient She is now amenable for evaluation with upper and lower endoscopy. I have counseled her as to the procedures. I have explained the risks, including but not limited to: infection, bleeding, perforation of the GI tract, inability to complete the procedure (given history of ovarian cancer - may have advanced tumor), injury to any internal organ such as liver/spleen, complications of anesthesia, etc. - she understands. She agrees to proceed. I have answered all her questions and asked if she has any further questions and she states that she has no further questions. plan- upper and lower endoscopy on
[2018-04-14] MEDS: proMETHazine 25 MG/ML Syringe 6.25 MG IV (20:25)
[2018-04-14] MEDS: lamoTRIgine 150 MG Tablet 300 MG PO (21:29)
[2018-04-14] MEDS: ALPRAZolam 0.5 MG Tablet 1 MG PO (21:30)
[2018-04-14 21:56] VITALS: BP 118/73; PULSE 60; RESP 17; TEMP 36.8; O2SAT 99
[2018-04-15] MEDS: proMETHazine 25 MG/ML Syringe 6.25 MG IV ×3 (00:34→22:20)
[2018-04-15] MEDS: HYDROcodone Bitartrate/Apap 5/325 Tablet PO ×4 (03:16→23:39)
[2018-04-15] MEDS: 0.9% Normal Saline 1,000 ML 125 ML IV ×3 (03:18→20:50)
[2018-04-15 03:39] VITALS: BP 149/86; PULSE 57; RESP 17; TEMP 36.8; O2SAT 94
[2018-04-15 05:49] LABS: Anion Gap 5 (5-15); BUN 6 mg/dL (7-18); BUN/Creat Ratio 9.6 RATIO (10-20); Calcium,Total 7.6 mg/dL (8.5-10.1); Chloride 117 mmol/L (98-107); Creatinine, Serum 0.62 mg/dL (0.55-1.02); EST Glomerular Filtration Rate 109 mL/min (>60); Est Glom Filt Rate - Afr Amer 132 mL/min (>60); Estimated Creatinine Clearance 100.94 ml/min; Glucose 82 mg/dL (74-106); Potassium 4.3 mmol/L (3.5-5.1); Sodium Level 142 mmol/L (136-145)
[2018-04-15] MEDS: Morphine 2 MG/ML Syringe IV ×4 (06:03→22:19)
[2018-04-15 06:43] LABS: Absolute Neutrophil Count 1.5 X10^3/uL (2.0-7.7); Basophil# 0.02 X10^3/uL; Basophil% 0.6 % (0-1); Eosinophil# 0.15 X10^3/uL; Eosinophils% 4.2 % (0-5); Hematocrit 38.4 % (37-47); Hemoglobin 12.3 g/dl (12.0-15.0); Lymphocyte % 44.3 % (19-41); Mean Corpuscular Hgb 32.4 pg (27.0-32.0); Mean Corpuscular Volume 101.1 fL (81-99); Mean Platelet Vol. 11.5 fl (6.2-12.0); Monocyte# 0.36 X10^3/uL; Neutrophil # 1.48 X10^3/uL (2.7-7.7); Neutrophil % 40.9 % (47-70); Platelet Count 147 K/mm3 (150-450); RBC Distribution Width CV 13.2 % (11.6-14.6); RBC Distribution Width SD 48.8 fl (35.1-43.9); White Blood Count 3.6 K/mm3 (4.4-11.0)
[2018-04-15 06:46] LABS: Absolute Nucleated RBC Count 0.06 10^3/uL (0-5); Differential Indicated SCAN CRITERIA MET; NRBC Flagged by Analyzer 1.5 % (0-5); POSITIVE COUNT YES; POSITIVE DIFFERENTIAL NO; POSITIVE MORPHOLOGY YES
[2018-04-15] MEDS: Enoxaparin 40 MG/0.4 ML Syringe SC (09:16)
[2018-04-15 09:20] VITALS: BP 121/87; PULSE 62; RESP 18; TEMP 37.1; O2SAT 98
[2018-04-15] MEDS: ALPRAZolam 0.5 MG Tablet 1 MG PO ×2 (09:20→20:49)
--- NOTE | 2018-04-15 10:30 | CASEMGMT ---
Social Work Note SW completed advanced directives with pt. Pt provided originals and copy placed on pt's chart. Joana Reeder [employer]AIGHTENER, DIAGNOSTIC TECH
--- NOTE | 2018-04-15 10:48 | PN_ITS ---
Subjective: Patient seen and examined. She still complains of abdominal pain but looks more comfortable than she did yesterday. She denies any fever or chills, cough or chest pain, diarrhea vomiting. Review of systems otherwise negative. She is awaiting EGD and colonoscopy tomorrow. Labs and vitals reviewed. Vitals/I&O's: Vital Signs Temp Pulse Resp BP Pulse Ox 98.7 F 62 18 121/87 H 98 04/15/18 09:20 04/15/18 09:20 04/15/18 09:20 04/15/18 09:20 04/15/18 09:20 Oxygen Delivery Method Room Air Weight: 132 lb 7.965 oz Body Mass Index (BMI) 22.0 Intake and Output for Last 24 Hours 04/13/18 04/14/18 04/15/18 23:59 23:59 23:59 Intake Total 2791 / 2791 2158 / 2158 Output Total 900 / 900 Balance 1891 / 1891 2158 / 2158 General: Alert, Oriented x3, Cooperative, No apparent distress HEENT: Atraumatic, PERRLA, EOMI, Normocephalic Oral: Dry Mucosa Neck: Supple, No JVD, Negative Carotid Bruits Lungs: Clear to auscultation, Normal air movement, No rhonchi, No wheeze, No rales Cardiovascular: Regular rate, Regular Rhythm, Normal S1, Normal S2, No murmurs Abdomen: Bowel Sounds Present, Soft, Non Tender, Non-Distended, No Hepato-sp lenomegaly Extremities: No clubbing, No cyanosis, No edema, Capillary Refill Less than 3 Seconds Skin: No rashes, No breakdown Musculoskeletal: No Tenderness to Palpation of Joints or Extremities Lymphatic: No Cervical, Supraclavicular, or Inguinal Adenopathy Neurological: Cranial nerves II-XII grossly intact, Neuro grossly intact, Motor Exam 5/5 strength throughout Psych/Mental Status: Normal Affect, Appropriate, Alert and oriented to time, place, person, mood and affect Microbiology Past 72 Hours 04/13/18 22:10 Mucosa - Nasopharyngeal Influenza Types A,B Direct FA (SONIA) - Final Laboratory Results 04/15/18 04:58: WBC 3.6 L, RBC 3.80 L, Hgb 12.3, Hct 38.4, MCV 101.1 H, MCH 32.4 H, MCHC 32.0, RDW 13.2, RDW Differential 48.8 H, Plt Count 147 L, MPV 11.5, Immature Gran % (Auto) 0.000, Neut % (Auto) 40.9 L, Lymph % (Auto) 44.3 H, [place] % (Auto) 10.0, Eos % (Auto) 4.2, Baso % (Auto) 0.6, Absolute Neuts (auto) 1.5 L, Absolute Lymphs (auto) 1.60, Total Counted Not Reportable, Nucleated RBC % 1.5, Differential Comment COMMENT, Diff Path Review July foll, Absolute Retic 0.06 04/15/18 04:58: Sodium 142, Potassium 4.3, Chloride 117 H, Carbon Dioxide 20.0 L , Anion Gap 5, BUN 6 L, Creatinine 0.62, Estim Creat Clear Calc 100.94, Est GFR (MDRD) Af Amer 132, Est GFR (MDRD) Non-Af 109, BUN/Creatinine Ratio 9.6 L, Glucose 82, Calcium 7.6 L Current Medications Acetaminophen (Tylenol) 650 mg PO Q6H PRN PRN PRN Reason: Non-cardiac pain (mod-severe) Hydrocodone Bitart/Acetaminophen ([place] 5mg-325mg) 1 - 2 tablet PO Q6H PRN PRN PRN Reason: Moderate-severe pain Last Admin: 04/15/18 09:20 Dose: 2 tablet Al Hydroxide/Mg Hydroxide (Mylanta Ii) 30 ml PO Q6H PRN PRN PRN Reason: Gastric burning Albuterol Sulfate (Ventolin Aerosols) 2.5 mg INHALATION Q2H PRN PRN PRN Reason: DYSPNEA, WHEEZING Alprazolam (Xanax) 1 mg PO TID PRN PRN PRN Reason: ANXIETY Last Admin: 04/15/18 09:20 Dose: 1 mg Enoxaparin Sodium (Lovenox) 40 mg SC DAILY@1000 KARLY Last Admin: 04/15/18 09:16 Dose: 40 mg Hydralazine HCl (Apresoline Iv) 10 mg IV Q4H PRN PRN PRN Reason: SBP > 160 Sodium Chloride () 1,000 mls @ 125 mls/hr IV .Q8H KARLY Last Admin: 04/15/18 03:18 Dose: 125 mls/hr Pantoprazole Sodium 40 mg/ (Sodium Chloride) 110 mls @ 330 mls/hr IV Q12 [facility] Last Admin: 04/15/18 09:21 Dose: 330 mls/hr Lamotrigine (Lamictal) 300 mg PO QHS [facility] Last Admin: 04/14/18 21:29 Dose: 300 mg Magnesium Hydroxide (Milk Of Magnesia) 30 ml PO DAILY PRN PRN PRN Reason: Constipation Morphine Sulfate () 1 - 2 mg IV Q4H PRN PRN PRN Reason: PAIN Last Admin: 04/15/18 06:03 Dose: 2 mg Nicotine (Nicoderm Cq (Pbkc)) 14 mg TRANSDERM. DAILY [facility] Last Admin: 04/15/18 09:16 Dose: Not Given Promethazine HCl (Phenergan) 6.25 mg IV Q4H PRN PRN PRN Reason: NAUSEA/VOMITING Last Admin: 04/15/18 00:34 Dose: 6.25 mg Sodium Chloride () 5 - 15 ml IV UD PRN PRN Reason: SALINE FLUSH Last Admin: 04/14/18 20:26 Dose: 10 ml Sodium Chloride/Electrolytes (Nulytely) 4,000 ml PO X1 ONE Stop: 04/15/18 17:01 Medical Necessity - Tobacco Use Smoking Status: Current every day smoker - Smokes ~ 1/2 pack/day. Tobacco Use: Cigarettes Assessment/Plan All Active Problems Abdominal pain (Acute) Nausea (Acute) 1. Abdominal pain of unclear etiology * Still complains of left-sided abdominal pain * general surgery on board; for EGD and colonoscopy tomorrow. * Currently n.p.o. On IV Zofran as needed. On IV pantoprazole. * IV morphine prn * 2/ Anxiety, depression and bipolar disorder * on xanax and lamictal * 3. History of ovarian cancer * s/p hysterectomy with bilateral salpingoopherectomy * had chemotherapy and is currently in remission. * Follows up with oncologist at [facility] * 4. Hematuria: * resolved * Urine occult blood was 250 with RBC more than 100. * No bacteria seen. Urine cultures pending. * 5. Nicotine dependence: counselled on cessation. Nicotine patch 21mg daily. 6. GERD: On IV PPI DVT prophylaxis: SCDs and Lovenox Code Visit Inpatient E&M: 92665 Subs Hosp L2
[2018-04-15 14:05] VITALS: O2SAT 99
[2018-04-15 14:30] LABS: Pathologist Review Reviewed
[2018-04-15 15:00] VITALS: BP 137/81; PULSE 71; RESP 16; TEMP 37; O2SAT 100
[2018-04-15] MEDS: Morphine 2 MG/ML Syringe 1 MG IV (15:02)
[2018-04-15] MEDS: Electrolyte Solution/Peg's 4000 ML PO (16:04)
--- NOTE | 2018-04-15 19:23 | PCM.PN.SRG ---
Subjective: patient still complaint of pain - Physical Exam General: Alert Oral: Moist Mucosa Neck: Supple Abdomen: Soft - generalized abdominal pain Vital Signs Temp Pulse Resp BP Pulse Ox 98.6 F 71 16 137/81 H 100 04/15/18 15:00 04/15/18 15:00 04/15/18 15:00 04/15/18 15:00 04/15/18 15:00 Oxygen Delivery Method Room Air Weight: 60.1 kg Body Mass Index (BMI) 22.0 Intake and Output for Last 24 Hours 04/13/18 04/14/18 04/15/18 23:59 23:59 23:59 Intake Total 2791 / 2791 4636 / 4636 Output Total 900 / 900 Balance 1891 / 1891 4636 / 4636 Microbiology Past 72 Hours 04/13/18 22:10 Influenza Types A,B Direct FA (SONIA) - Final Mucosa - Nasopharyngeal Laboratory Tests Past 24 Hrs 04/15/18 04/15/18 04:58 04:58 WBC 3.6 L RBC 3.80 L Hgb 12.3 Hct 38.4 MCV 101.1 H MCH 32.4 H MCHC 32.0 RDW 13.2 RDW Differential 48.8 H Plt Count 147 L MPV 11.5 Immature Gran % (Auto) 0.000 Neut % (Auto) 40.9 L Lymph % (Auto) 44.3 H [place] % (Auto) 10.0 Eos % (Auto) 4.2 Baso % (Auto) 0.6 Absolute Neuts (auto) 1.5 L Absolute Lymphs (auto) 1.60 Total Counted Not Reportable Nucleated RBC % 1.5 Differential Comment COMMENT Diff Path Review Reviewed Absolute Retic 0.06 Sodium 142 Potassium 4.3 Chloride 117 H Carbon Dioxide 20.0 L Anion Gap 5 BUN 6 L Creatinine 0.62 Estim Creat Clear Calc 100.94 Est GFR (MDRD) Af Amer 132 Est GFR (MDRD) Non-Af 109 BUN/Creatinine Ratio 9.6 L Glucose 82 Calcium 7.6 L Medical Necessity - Tobacco Use Smoking Status: Current every day smoker - Smokes ~ 1/2 pack/day. Tobacco Use: Cigarettes Assessment/Plan All Active Problems Abdominal pain (Acute) Nausea (Acute) Impression: abdominal pain, abnormal CT scan Plan: upper and lower endoscopy tomorrow am I have asked if patient has any questions regarding the procedures and she states that she has had all her questions answered to her satisfaction
[2018-04-15 21:11] VITALS: BP 140/79; PULSE 76; RESP 20; TEMP 36.6; O2SAT 98
[2018-04-15] MEDS: Zolpidem Tartrate 5 MG Tablet PO (22:31)
[2018-04-15] MEDS: lamoTRIgine 150 MG Tablet 300 MG PO (22:31)
[2018-04-16] VITALS (9 sets, daily range): BP systolic 131–180; BP diastolic 84–110; PULSE 69–83; RESP 16; TEMP 36.3–36.6; O2SAT 95–97
[2018-04-16] MEDS: proMETHazine 25 MG/ML Syringe 6.25 MG IV ×2 (02:26→09:53)
[2018-04-16] MEDS: Morphine 2 MG/ML Syringe IV ×2 (02:26→09:36)
[2018-04-16] MEDS: 0.9% NaCl Peripheral Flush Adult/Peds IV (02:27)
[2018-04-16] MEDS: 0.9% Normal Saline 1,000 ML 125 ML IV ×2 (02:33→09:18)
[2018-04-16 06:14] LABS: Absolute Lymphocyte Count 1.58 X10^3/ul (0.83-4.51); Absolute Neutrophil Count 2.1 X10^3/uL (2.0-7.7); Basophil# 0.02 X10^3/uL; Basophil% 0.5 % (0-1); Eosinophil# 0.14 X10^3/uL; Eosinophils% 3.3 % (0-5); Hematocrit 38.2 % (37-47); Hemoglobin 12.3 g/dl (12.0-15.0); Lymphocyte # 1.58 X10^3/ul (4.0); Lymphocyte % 37.2 % (19-41); Mean Corp Hgb Conc 32.2 g/gl (32-36); Mean Corpuscular Hgb 31.9 pg (27.0-32.0); Mean Corpuscular Volume 99.2 fL (81-99); Monocyte# 0.43 X10^3/uL; Monocyte% 10.1 % (0-10); Neutrophil # 2.06 X10^3/uL (2.7-7.7); Neutrophil % 48.4 % (47-70); Platelet Count 149 K/mm3 (150-450); RBC Distribution Width CV 12.9 % (11.6-14.6); Red Blood Count 3.85 M/mm3 (4.2-5.4); White Blood Count 4.3 K/mm3 (4.4-11.0)
[2018-04-16 06:21] LABS: POSITIVE COUNT NO; POSITIVE DIFFERENTIAL NO; POSITIVE MORPHOLOGY NO
[2018-04-16 06:46] LABS: Anion Gap 6 (5-15); BUN 4 mg/dL (7-18); BUN/Creat Ratio 6.5 RATIO (10-20); Calcium,Total 7.6 mg/dL (8.5-10.1); Chloride 116 mmol/L (98-107); Creatinine, Serum 0.62 mg/dL (0.55-1.02); EST Glomerular Filtration Rate 111 mL/min (>60); Est Glom Filt Rate - Afr Amer 134 mL/min (>60); Estimated Creatinine Clearance 100.94 ml/min; Glucose 76 mg/dL (74-106); Sodium Level 143 mmol/L (136-145)
--- NOTE | 2018-04-16 08:00 | EGD_PTH ---
PATIENT: MARIA INES BRAVO LOC: MS3 U#:[id number] AGE/SX: 48/F [place]OM: [facility] [place]13[place]: Dr. Jessica Hernandez MD : 1970 BED: 1 DIS: 04/16/2018 SPEC #: [id number] RECD: 04/16/18 09:12 STATUS: KARYN REQ #: [id number] JOSHUA: 04/16/18 08:[address]: Jada Duggan DEPT: SURGICAL PATHOLOGY RECD BY: Jeff Delgado ENTERED: 04/16/18 09:24 SP TYPE: EGD BIOPSY OTHR DR: MD Dr. Jessica Hartley MD Dr. Richard Guttman, MD [facility] ([place], [place]) Tissues: Gastric mucous membrane Procedures: Surgery Specimen Level IV Comments: @ Ordering doctor for SUIV edited from to DR.LWANG Tomlin by EDDIE at 04/16/18 1030 @ Submitting doctor edited from to DR.LWANG Sada MORGAN at 04/16/18 1030 HEADER OPERATION: Colonoscopy, EGD ([facility] [place] PRE-OP DIAGNOSIS: Abdomen pain and nausea TISSUE SUBMITTED: Antrum biopsy for H. pylori and path MICROSCOPIC DIAGNOSIS Gastric antrum, biopsy: Mild chronic gastritis. See comment. AM:ajay 04/17/18 COMMENT The results of immunohistochemistry for Helicobacter pylori will be reported separately ([id number]). MICROSCOPIC DESCRIPTION Slides are reviewed. GROSS DESCRIPTION Received in fixative is one container labeled with the patient's name and designated antrum biopsy. The specimen consists of two irregular fragments of light anand soft tissue that in aggregate measure 0.5 x 0.2 x 0.1 cm. The specimen is totally submitted in one cassette. / AM:ajay 04/16/18 TC:3 CPT: 44152
--- NOTE | 2018-04-16 08:00 | IMM_PTH ---
PATIENT: MARIA INES BRAVO LOC: MS3 U#:[id number] AGE/SX: 48/F [place]OM: [facility] [place]: Dr. Jessica Hernandez MD : 1970 BED: 1 DIS: 04/16/2018 SPEC #: [id number] RECD: 04/16/18 10:30 STATUS: SOUT REQ #: [id number] JOSHUA: 04/16/18 08:[address]: Jada Duggan DEPT: IMMUNOHISTOCHEMISTRY RECD BY: Shivani Berg ENTERED: 04/16/18 10:38 SP TYPE: IMMUNO OTHR DR: MD Dr. Jessica Hartley MD Dr. Richard Guttman, MD [facility] [place] [place] Tissues: Stomach, NOS Procedures: H Pylori (initial) Comments: @ Ordering doctor for H.PYLORI edited from to DR.LWANG Tomlin by EDDIE at 04/16/18 1040 @ Submitting doctor edited from to DR.LWANG Sada MORGAN at 04/16/18 1040 PHYSICIAN & [place] [phone] SPECIMEN INFORMATION: Tissue Source: Antrum biopsy Clinical Info: Abdomen pain and nausea Specimen Number: [id number] CPT code: 13471 METHODOLOGY: Deparaffinized sections of prefer/formalin-fixed tissue or PAP/DQ stained slides are incubated with monoclonal/polyclonal antibodies/oligonucleotide probes. Localization is made via biotin free immunoperoxidase method. Appropriate controls are performed and reacted as expected. Results on target cell population are indicated in the following table: RESULTS: ANTIBODY / CLONE RESULT H Pylori (polyclonal) negative These tests were developed and their performance characteristics determined by [facility]. They may not have been cleared or approved by the U.S. Food and Drug Administration. The FDA has determined that such clearance or approval is not necessary. INTERPRETATION: Antrum biopsy: Negative for Helicobacter pylori organisms. AM:ajay 04/17/18
--- NOTE | 2018-04-16 08:43 | OP.ENDO_ITS ---
Patient Name: Vanessa Grey Procedure Date: 04/16/2018 7:50 AM Date of : 1970 Age: 48 Procedure: Upper GI endoscopy Indications: Generalized abdominal pain, Abnormal CT of the GI tract Providers: Jada Duggan MD Medicines: See the Anesthesia note for documentation of the administered medications Patient Profile: Refer to note in patient chart for documentation of history and physical. Patient has symptoms of chronic global abdominal pain. Previously obtained CT showed wall thickening. Complications: No immediate complications. Procedure: Pre-Anesthesia Assessment: - After reviewing the risks and benefits, the patient was deemed in satisfactory condition to undergo the procedure. - Monitored anesthesia care under the supervision of an anesthesiologist was determined to be medically necessary for this procedure based on review of the patient's medical history, medications, and prior anesthesia history. After obtaining informed consent, the endoscope was passed under direct vision. Throughout the procedure, the patient's blood pressure, pulse, and oxygen saturations were monitored continuously. The gastroscope was introduced through the mouth, and advanced to the third part of duodenum. The upper GI endoscopy was accomplished without difficulty. The patient tolerated the procedure well. Scope In: 8:02:38 AM Scope Out: 8:06:52 AM Total Procedure Duration Time 0 hours 4 minutes 14 seconds Findings: The examined esophagus was normal. Striped mildly erythematous mucosa without bleeding was found in the gastric antrum. Biopsies were taken with a cold forceps for Helicobacter pylori testing. The first portion of the duodenum, second portion of the duodenum and third portion of the duodenum were normal. Impression: - Normal esophagus. - Erythematous mucosa in the antrum. Biopsied. - Normal first portion of the duodenum, second portion of the duodenum and third portion of the duodenum. Recommendation: - Await pathology results. - My office will telephone with pathology results in 1-2 weeks - Continue present medications. Procedure Code(s): --- Professional --- 89180, Esophagogastroduodenoscopy, flexible, transoral; with biopsy, single or multiple Diagnosis Code(s): --- Professional --- K31.89, Other diseases of stomach and duodenum CPT copyright 2017 [employer]. All rights reserved. The codes documented in this report are preliminary and upon bag grader review may be revised to meet current compliance requirements. MD Jada Castañeda MD 04/16/2018 8:42:52 AM This report has been signed electronically. Number of Addenda: 0 Note Initiated On: 04/16/2018 7:50 AM
--- NOTE | 2018-04-16 08:51 | OP.ENDO_ITS ---
Patient Name: Vanessa Grey Procedure Date: 04/16/2018 8:08 AM Date of : 1970 Age: 48 Procedure: Colonoscopy Indications: Generalized abdominal pain Providers: Jada Duggan MD Medicines: See the Anesthesia note for documentation of the administered medications Patient Profile: Refer to note in patient chart for documentation of history and physical. Patient has symptoms of chronic global abdominal pain. Previously obtained CT showed wall thickening. Last Colonoscopy: date unknown. Complications: No immediate complications. Procedure: Pre-Anesthesia Assessment: - After reviewing the risks and benefits, the patient was deemed in satisfactory condition to undergo the procedure. - Monitored anesthesia care under the supervision of an anesthesiologist was determined to be medically necessary for this procedure based on review of the patient's medical history, medications, and prior anesthesia history. After I obtained informed consent, the scope was passed under direct vision. Throughout the procedure, the patient's blood pressure, pulse, and oxygen saturations were monitored continuously. The pediatric colonoscope was introduced through the anus and advanced to the transverse colon. The colonoscopy was performed without difficulty. The patient tolerated the procedure well. The quality of the bowel preparation was inadequate - could not visualized to advance colon beyond transverse colon. Scope In: 8:09:51 AM Scope Out: 8:36:08 AM Total Procedure Duration Time 0 hours 26 minutes 17 seconds Findings: The perianal and digital rectal examinations were normal. Pertinent negatives include normal sphincter tone. Non-bleeding internal hemorrhoids were found. Impression: - Preparation of the colon was inadequate. The colonoscopy was incomplete, visualized to the transverse colon with no abnormalities. - Non-bleeding internal hemorrhoids. - No specimens collected. Recommendation: - Perform an air contrast barium enema at the next available appointment for completion evaluation of the colon - (right colon). - No recommendation at this time regarding repeat colonoscopy due to age. - Continue present medications. Procedure Code(s): --- Professional --- 04024, 53, Colonoscopy, flexible; diagnostic, including collection of specimen(s) by brushing or washing, when performed (separate procedure) CPT copyright 2017 [employer]. All rights reserved. The codes documented in this report are preliminary and upon certified coder review may be revised to meet current compliance requirements. MD Jada Castañeda MD 04/16/2018 8:50:30 AM This report has been signed electronically. Number of Addenda: 0 Note Initiated On: 04/16/2018 8:08 AM
--- NOTE | 2018-04-16 08:53 | RAD_ITS ---
STUDY: X-RAY - ABDOMEN/PELVIS REASON FOR EXAM: Female, 48 years old. Abdominal pain following colonoscopy. TECHNIQUE: Left side down decubitus views were obtained. COMPARISON: None. FINDINGS: Normal visualized lung bases. An air-fluid level is seen in the right hemicolon. There is no demonstrated free abdominal air. The visualized liver, spleen and kidneys are grossly normal in size and morphology. Normal soft tissue structures. Normal visualized osseous structures. RAD/Abdomen Single View (Portable) IMPRESSION: Air-fluid level seen in the right hemicolon. Electronically Signed: Gil Jaeger MD at 9:54 EST , Service support ,
--- NOTE | 2018-04-16 09:21 | PCM.PN.BLA ---
Progress Note Upper endoscopy - no abnormalities noted except for very mild gastritis, however, could only visualize duodenum and not jejunum Lower endoscopy - poor colon cleansing preparation and could not visualize beyond transverse colon, however, what was visualized - was normal recommend ACBE Discussed with Dr. Hernandez
[2018-04-16] MEDS: ALPRAZolam 0.5 MG Tablet 1 MG PO (09:37)
[2018-04-16] MEDS: hydrALAZINE 20 MG/ML Vial 10 MG IV (09:40)
[2018-04-16] MEDS: Enoxaparin 40 MG/0.4 ML Syringe SC (10:35)
--- NOTE | 2018-04-16 11:31 | NURSING ---
DR GONZALEZ IN TO SEE PT. PT STATED THAT SHE WANTS TO GO HOME. ENCOURAGED PT TO STAY FOR TEST ELLIS. PT DECLINED. PT SIGNED AMA PAPERS. AT BEDSIDE. IV REMOVED.
--- NOTE | 2018-04-16 12:25 | PCM.DC.SUM ---
Discharge Date and Diagnosis Date of Admission: 04/13/18 Date of Discharge: 04/16/18 - Primary Discharge Diagnosis abdominal pain - Secondary Discharge Diagnosis Chronic Problems History of ovarian cancer (Chronic) Tobacco use (Chronic) Anxiety and depression (Chronic) GERD (gastroesophageal reflux disease) (Chronic) Hospital Course and Treatment Imaging Results: 04/16/18 08:53 KUB [Abdomen Single View (Portable)] [RAD] Urgent Diagnostic Data Acute Abdomen Series 04/13/18 22:40 IMPRESSION: 1. Nonspecific gas pattern. 2. Mild atelectatic changes in lung bases. Electronically Signed: Ced Gonzalez MD at 22:56 EST Tel , Service support , KUB X-Ray 04/16/18 08:53 IMPRESSION: Air-fluid level seen in the right hemicolon. Electronically Signed: Gil Jaeger MD at 9:54 EST , Service support , general surgery- Dr Duggan Procedures: Colonoscopy, EGD Summary of Care Provided: The patient is a 48 year old F with a PMH of ovarian cancer s/p hysterectomy and bilateral salpingo-oopherectomy and chemotherapy (2006), anxiety, depression, GERD and tobacco use. She was admitted with a complaint of left sided abdominal pain with nausea and occasional emesis. She had been seen with a similar complaint in the ED on 04/08/18 with similar pain and left AMA. She was admitted and managed for abdominal pain of unclear etiology. CT of the abdomen and pelvis done on 04/07/18 showed acute inflammation and localized IVS of the proximal small bowel involving primarily the duodenum and proximal jejunum with possible fecal stasis [place] colon and right colon, diverticulosis and possible ileus. She was made n.p.o. and put on IV pantoprazole and IV Zofran. General surgery was consulted. EGD showed normal esophagus with erythematous mucosa in the antrum which was biopsied. Duodenum was normal. Colonoscopy showed poor prep and as such it was incomplete. Visualization was up to the transverse colon with no abnormalities and there were nonbleeding internal hemorrhoids. Recommendation was to perform an air-contrast barium enema. Patient however chose to sign out AMA on 04/16/17. Patient was seen and examined prior to her signing out AMA./ She still complained of left lower quadrant pain. She was distressed and uncomfortable. She denied any fever, chills, cough, chest pain, diarrhea or vomiting. Review of systems was otherwise negative. Labs and vitals reviewed. O/e: Vital Signs Height 5 ft 5 in Weight: 132 lb 7.965 oz Weight in Pounds 132.5 lbs Pulse Ox 95 Temperature 97.3 F Pulse Rate 83 Respiratory Rate 16 Blood Pressure [BP] 141/107 Blood Pressure 180/110 Blood Pressure Position [BP] Semi-Fowlers Blood Pressure Position Semi-Fowlers [] General: Alert, Oriented x3, Cooperative, distressed HEENT: Atraumatic, PERRLA, EOMI, Normocephalic Oral: Dry Mucosa Neck: Supple, No JVD, Negative Carotid Bruits Lungs: Clear to auscultation, Normal air movement, No rhonchi, No wheeze, No rales Cardiovascular: Regular rate, Regular Rhythm, Normal S1, Normal S2, No murmurs Abdomen: Bowel Sounds Present, Soft, mild left lower quadrant tenderness, Non-Distended, No Hepato-splenomegaly Extremities: No clubbing, No cyanosis, No edema, Capillary Refill Less than 3 Seconds Skin: No rashes, No breakdown Musculoskeletal: No Tenderness to Palpation of Joints or Extremities Lymphatic: No Cervical, Supraclavicular, or Inguinal Adenopathy Neurological: Cranial nerves II-XII grossly intact, Neuro grossly intact, Motor Exam 5/5 strength throughout Psych/Mental Status: Normal Affect, Appropriate, Alert and oriented to time, place, person, mood and affect PATIENT SIGNED OUT AMA. - Physical Exam Vital Signs Temp Pulse Resp BP Pulse Ox 97.3 F L 83 16 141/107 H 95 04/16/18 09:43 04/16/18 09:43 04/16/18 09:43 04/16/18 09:49 04/16/18 09:43 Oxygen Delivery Method Room Air Weight: 132 lb 7.965 oz Body Mass Index (BMI) 22.0 Intake and Output for Last 24 Hours 04/14/18 04/15/18 04/16/18 23:59 23:59 23:59 Intake Total 2791 / 2791 4636 / 4636 3283 / 3283 Output Total 900 / 900 Balance 1891 / 1891 4636 / 4636 3283 / 3283 Microbiology Past 72 Hours 04/13/18 22:20 Urine Culture - Final Urine, Clean Catch Mixed Gram Positive Organisms 04/13/18 22:10 Influenza Types A,B Direct FA (SONIA) - Final Mucosa - Nasopharyngeal Laboratory Tests Past 24 Hrs 04/15/18 04/16/18 04/16/18 04:58 05:54 05:54 WBC 4.3 L RBC 3.85 L Hgb 12.3 Hct 38.2 MCV 99.2 H MCH 31.9 MCHC 32.2 RDW 12.9 RDW Differential 47.0 H Plt Count 149 L MPV 11.0 Immature Gran % (Auto) 0.500 Neut % (Auto) 48.4 Lymph % (Auto) 37.2 [place] % (Auto) 10.1 H Eos % (Auto) 3.3 Baso % (Auto) 0.5 Absolute Neuts (auto) 2.1 Absolute Lymphs (auto) 1.58 Total Counted Not Reportable Diff Path Review Reviewed Sodium 143 Potassium 4.0 Chloride 116 H Carbon Dioxide 21.0 Anion Gap 6 BUN 4 L Creatinine 0.62 Estim Creat Clear Calc 100.94 Est GFR (MDRD) Af Amer 134 Est GFR (MDRD) Non-Af 111 BUN/Creatinine Ratio 6.5 L Glucose 76 Calcium 7.6 L Discharge Diet: Low fat/ Low Cholesterol Home Medications: Medications to take at Discharge ALPRAZolam [Xanax] 1 mg PO TID PRN PRN 04/07/18 Lamotrigine [Lamictal] 300 mg PO QHS 04/07/18 Zolpidem Tartrate [Ambien] 10 mg PO QHS PRN PRN 04/07/18 Pantoprazole Sodium [Protonix] 40 mg PO DAILY #30 tablet 04/08/18 Primary Care Physician: Brittny Fuller [Primary Care Provider] - Disposition: Against Medical Advice Minutes spent on discharge:: 35 Patient Condition:: Stable Medical Necessity - Tobacco Use Smoking Status: Current every day smoker - Smokes ~ 1/2 pack/day. Tobacco Use: Cigarettes Meaningful Use Info Meaningful Use Diagnoses (Choose all that apply): None applicable Code Visit Inpatient E&M: 64308 Disch Hosp
== END 2018-04-16 11:42 | disposition left against medical advice (07) | DRG 251 ==
LOC: ED 21:46 → MS3 04-14 00:30
PROVIDERS: Surgery; Admitting Provider Family Medicine; Emergency Provider Emergency Medicine; Visit Provider Student in an Organized Health Care Education/Training Program
PROC: 0DJD8ZZ Inspection of Lower Intestinal Tract, Via Natural or Artificial Opening Endoscopic (ICD-10-PCS; CPT 45378; principal; 2018-04-16 07:55)
DX: R10.32 Left lower quadrant pain (principal); R31.29 Other microscopic hematuria; F41.9 Anxiety disorder, unspecified; K21.9 Gastro-esophageal reflux disease without esophagitis; K64.8 Other hemorrhoids; K29.70 Gastritis, unspecified, without bleeding; Z90.710 Acquired absence of both cervix and uterus; Z90.722 Acquired absence of ovaries, bilateral; Z90.79 Acquired absence of other genital organ(s); Z90.49 Acquired absence of other specified parts of digestive tract; Z92.21 Personal history of antineoplastic chemotherapy; Z85.43 Personal history of malignant neoplasm of ovary; Z79.899 Other long term (current) drug therapy; F31.9 Bipolar disorder, unspecified; F17.210 Nicotine dependence, cigarettes, uncomplicated
CPT/HCPCS: 43239; 45378; 36415; 74018; 74022; 80048; 80053; 81001; 83605; 83690; 83735; 85025; 87086; 87088; 87804; 88305; 88342; 97802; 99218; 99284; 99406; J7030; A4216; G0378

== ENCOUNTER 2018-07-25 16:45 | Emergency (ER) | payer MEDICAID, SELFPAY ==
[2018-07-25 16:46] VITALS: BP 143/84; PULSE 85; RESP 16; TEMP 36.6; O2SAT 98; BMI 23.3
--- NOTE | 2018-07-25 17:10 | ED.DCSUM_ITS ---
History of Present Illness Chief Complaint: Abd Pain Informant: Patient Onset: Yesterday Context: Gradual Onset Timing: Continuous Quality: pain Location: RUQ Current Severity: Moderate Maximum Severity: Severe Worsened by: eating - quickly afterwards Relieved by: nothing Associated Symptoms: n/v - looks like coffee grounds Narrative: The symptoms started yesterday. Radiates toward umbilicus, not to shoulders or back. Significantly worse very quickly after swallowing food. Has vomited no gross blood that she has seen and seen no blood in her stool but the last couple days did have black, hard stools. She does not take iron or Pepto-Bismol. The pain is relieved by nothing. Was seen at [facility] yesterday for this, states she had some x-rays and was prescribed Tylenol 3's but cannot take them. States she has a history of stage III ovarian cancer that she treated with chemotherapy in the early 1999 and recurred 2 years ago, she initiated chemotherapy and then chose to discontinue treatment and has had none since. She does not have chronic abdominal symptoms since then. She states she has been scoped and diagnosed with peptic ulcer disease in the past and states this feels different than that did. Has had partial bowel resection, hysterectomy, appendectomy; no hx of cholecystectomy. Prior similar symptoms: No - different than my ulcer pain - Past Medical History (1) Anxiety and depression Status: Chronic (2) GERD (gastroesophageal reflux disease) Status: Chronic (3) History of ovarian cancer Status: Chronic Past Medical History - Allergies and Home Meds Allergies/Adverse Reactions: Allergies acetaminophen [From Darvocet-N] Allergy (Verified 07/25/18 16:51) Other codeine Allergy (Verified 07/25/18 17:56) Hives Iodinated Contrast- Oral and IV Dye [CT] Allergy (Verified 07/25/18 18:05) Rash ondansetron [From Zofran] Allergy (Verified 07/25/18 16:51) Shortness of breath propoxyphene [From Darvocet-N] Allergy (Verified 07/25/18 16:51) Other aspirin Adverse Reaction (Verified 07/25/18 16:51) Other BLISTER ibuprofen [From Motrin] Adverse Reaction (Verified 07/25/18 16:51) Other BLISTER levofloxacin [From Levaquin] Adverse Reaction (Verified 07/25/18 16:51) Other BLISTER NSAIDS (Non-Steroidal Anti-Inflamma Adverse Reaction (Verified 07/25/18 16:51) Other BLISTER Primary Care Physician: Brittny Fuller [NON-STAFF] - Surgical History: appendectomy, hysterectomy, - - radical hysterectomy with additional resections for ovarian cancer Lives: With Family Smoking Status: Current every day smoker - Family History Maternal Family History: Reports: No pertinent history Paternal Family History: Reports: - - Patient denies any marked maternal or paternal family history including heart disease, diabetes, cancer. Review of Systems General: Denies: Chills, Fever, Sweats Eyes: Denies: Visual changes - bilaterally, Diplopia ENT: Denies: Rhinorrhea, Sore throat Cardiovascular: Denies: Chest pain, Palpitations Respiratory: Denies: Dyspnea, Cough, Dyspnea on exertion Gastrointestinal: Reports: Abdominal pain, Nausea, Vomiting, Constipation. Denies: Diarrhea, Melena, Hematochezia Genitourinary: Denies: Dysuria, Hematuria, Frequency Musculoskeletal: Reports: Back pain - chronic, no changes. Denies: Neck pain, Swelling, Extremity Pain Skin: Denies: Rash, Wounds Neurological: Denies: Headache, Weakness, Numbness Physical Exam Vital Signs/Narrative: Vital Signs Temp Pulse Resp BP Pulse Ox 07/25/18 16:46 97.8 F 85 16 143/84 H 98 Inital Vital Signs reviewed: Yes General: Well nourished, Well developed, No Acute Distress Head: Normocephalic, Atraumatic Eyes: Perrl, EOMI ENT: Moist mucous membranes, No rhinorrhea Neck: Supple, Nontender Cardiovascular: Regular rate, Regular rhythm, No murmurs Respiratory: No distress, CTA bilaterally, Chest nontender Abdomen: Soft, Nondistended, Normal bowel sounds, Tender - RUQ, epigastrium, Rebound tenderness - mild, epigastrium. Negative for: Guarding, Pulsatile mass, Umbilical hernia, Stoll's sign Back: Nontender, Normal Inspection. Negative for: CVA tenderness Extremities: Nontender, No edema Skin: Normal color, No rash, No Trauma Neurological: Alert, Oriented x3, Cranial nerves II-XII grossly intact, Normal Strength, Normal Sensation Psychological: Normal affect, Normal Mood Diagnostic/Tx/Re-eval Impressions Abdomen/Pelvis CT 07/25/18 18:30 IMPRESSION: No acute abnormality. However, evaluation of the GI tract is very limited without oral contrast. There is marked diffuse fecal retention. Electronically Signed: Adalberto Leblanc MD at 19:03 EDT , Service support , 07/25/18 18:30 CT Abd [Abdomen/Pelvis without Cont] [CT] Stat Laboratory Results 07/25/18 07/25/18 07/25/18 17:15 17:55 17:55 WBC 7.1 RBC 4.36 Hgb 14.1 Hct 42.1 MCV 96.6 MCH 32.3 H MCHC 33.5 RDW 13.2 RDW Differential 46.5 H Plt Count 202 MPV 11.5 Immature Gran % (Auto) 0.100 Neut % (Auto) 72.3 H Lymph % (Auto) 20.4 Page % (Auto) 4.8 Eos % (Auto) 2.0 Baso % (Auto) 0.4 Absolute Neuts (auto) 5.1 Absolute Lymphs (auto) 1.45 Total Counted Not Reportable Sodium 144 Potassium 3.8 Chloride 104 Carbon Dioxide 34.0 H Anion Gap 6 BUN 13 Creatinine 0.81 Estim Creat Clear Calc 77.26 Est GFR (MDRD) Af Amer 98 Est GFR (MDRD) Non-Af 81 BUN/Creatinine Ratio 16.1 Glucose 97 Calcium 9.9 Total Bilirubin 0.20 AST 16 ALT 20 Alkaline Phosphatase 79 Total Protein 7.0 Albumin 3.8 Globulin 3.2 Albumin/Globulin Ratio 1.2 Lipase 85 Urine Color Yellow Urine Clarity Cloudy Urine pH 8.0 Ur Specific [place] 1.015 Urine Protein Negative Urine Glucose (UA) Normal Urine Ketones Negative Urine Occult Blood Negative Urine Nitrite Negative Urine Bilirubin Negative Urine Urobilinogen Normal Ur Leukocyte Esterase 25 H Urine RBC 0 SEEN Urine WBC 0 SEEN Ur Squamous Epith Cells 0 SEEN Amorphous Sediment 2+ Urine Bacteria RARE Urine Mucus 0 SEEN - Medical Decision Making Patient is a little less nauseated and still has pain after being given morphine, GI cocktail, Phenergan, she is requesting something else for discomfort. Her work-up is negative. I suspect she has gastritis or peptic ulcer disease that is causing this, there is no evidence of a perforation on her CT which also shows no acute abnormalities. Her blood counts are within normal limits and her BUN is as well, making acute upper GI bleeding less likely today. I think she is stable to be discharged home. We will give her additional medications prior to that and advised that she double her PPI that she states she has been compliant with. ED Disposition - Plan for ED Patient: Disposition: Home or Assisted Living Diagnosis: Upper abdominal pain, Gastritis Instructions: ED PUD Vs Gastritis Prescriptions: proMETHazine tablet [Phenergan tablet] 25 mg PO Q6H PRN PRN #12 tab PRN Reason: Nausea Dicyclomine HCl [Bentyl] 20 mg PO Q6H PRN #10 cap PRN Reason: abdominal pain [facility]errals: [facility]Brittny Jarquin [NON-STAFF] - 3-5 Days if not improving
[2018-07-25 17:21] LABS: Mucous, Urine 0 SEEN /hpf (<or=2+); Red Blood Cells-Urine 0 SEEN /hpf (0-5); Squamous Epithelial Cells - UA 0 SEEN /hpf (5-10); White Blood Cells 0 SEEN /hpf (0-5)
[2018-07-25 17:22] LABS: Color, Urine Yellow (Yellow); Glucose, Dipstick Normal (Normal); Ketone-Dipstick Negative (Negative); Leukocyte Esterase-Dipstick 25 /ul (Negative); Nitrite-Dipstick Negative (Negative); Occult Blood-Urine Negative /ul (Negative); Protein-Dipstick Negative (Negative); Specific Gravity, Urine 1.015 (1.002-1.030); Urine Bilirubin Dipstick Negative (Negative); Urine Clarity Cloudy (Clear); Urine Urobilinogen Normal (Normal)
[2018-07-25 17:29] LABS: Amorphous Sediment 2+; Bacteria RARE /hpf (None Seen)
[2018-07-25] MEDS: Morphine 4 MG/ML Syringe IV ×2 (17:52→20:22)
[2018-07-25] MEDS: proMETHazine 25 MG/ML Syringe 12.5 MG IV (17:52)
[2018-07-25] MEDS: Mag Hydrox/Al Hydrox/Simeth 30 ML UDC PO (17:53)
[2018-07-25] MEDS: 0.9% Normal Saline 1,000 ML 1000 ML IV (17:53)
[2018-07-25 18:24] LABS: Absolute Lymphocyte Count 1.45 X10^3/ul (0.83-4.51); Absolute Neutrophil Count 5.1 X10^3/uL (2.0-7.7); Basophil# 0.03 X10^3/uL; Basophil% 0.4 % (0-1); Eosinophil# 0.14 X10^3/uL; Hematocrit 42.1 % (37-47); Hemoglobin 14.1 g/dl (12.0-15.0); Lymphocyte # 1.45 X10^3/ul (4.0); Lymphocyte % 20.4 % (19-41); Mean Corp Hgb Conc 33.5 g/gl (32-36); Mean Corpuscular Hgb 32.3 pg (27.0-32.0); Mean Corpuscular Volume 96.6 fL (81-99); Mean Platelet Vol. 11.5 fl (6.2-12.0); Monocyte# 0.34 X10^3/uL; Monocyte% 4.8 % (0-10); Neutrophil # 5.14 X10^3/uL (2.7-7.7); Neutrophil % 72.3 % (47-70); POSITIVE COUNT NO; POSITIVE DIFFERENTIAL NO; POSITIVE MORPHOLOGY NO; Platelet Count 202 K/mm3 (150-450); RBC Distribution Width CV 13.2 % (11.6-14.6); RBC Distribution Width SD 46.5 fl (35.1-43.9); Red Blood Count 4.36 M/mm3 (4.2-5.4); White Blood Count 7.1 K/mm3 (4.4-11.0)
--- NOTE | 2018-07-25 18:30 | CT_ITS ---
STUDY: CT ABDOMEN AND PELVIS WITHOUT CONTRAST REASON FOR EXAM: Female, 48 years old. Right upper quadrant pain. Apparently, the patient has a history of ovarian cancer. RADIATION DOSAGE (If Supplied By Facility): CTDIvol = ( 6.18 ) mGy, DLP = ( 311.95 ) mGycm TECHNIQUE: Transaxial images were obtained from the dome of the diaphragm to the symphysis pubis without oral contrast, and without intravenous contrast. Sagittal and coronal images were reconstructed. Individualized dose optimization techniques were used for this CT. COMPARISON: 04/07/2018. FINDINGS: The visualized lung bases are unremarkable. The visualized portions of the heart are within normal limits. Normal liver. Normal gallbladder and extrahepatic biliary system. Normal spleen. Normal pancreas. Normal bilateral adrenal glands. Normal right kidney. Normal left kidney. Evaluation of the GI tract is limited by absence of oral contrast. Cannot exclude stomach wall thickening. No dilated loops of bowel or evidence for obstruction. Cannot exclude segmental thickening of the gauthier of the small or large bowel. Cannot exclude enteritis or colitis. There is marked diffuse fecal retention. Mild diverticulosis without definite diverticulitis. There appears to have been previous appendectomy. Normal abdominal aorta. Normal inferior vena cava. Normal retroperitoneum. Normal urinary bladder. There is absence of the uterus consistent with a prior hysterectomy. No evidence for pelvic mass or adenopathy. Normal abdominal wall. Normal osseous structures. CT/Abdomen/Pelvis without Cont IMPRESSION: No acute abnormality. However, evaluation of the GI tract is very limited without oral contrast. There is marked diffuse fecal retention. Electronically Signed: Adalberto Leblanc MD at 19:03 EDT , Service support ,
[2018-07-25 18:36] LABS: ALB/GLOB Ratio 1.2 RATIO (0.9-2.4); AST(SGOT) 16 U/L (15-37); Alanine Aminotransfer ALT/SGPT 20 U/L (13-56); Albumin, Serum 3.8 g/dL (3.2-5.0); Alkaline Phosphatase 79 U/L (45-117); BUN 13 mg/dL (7-18); BUN/Creat Ratio 16.1 RATIO (10-20); Calcium,Total 9.9 mg/dL (8.5-10.1); Creatinine, Serum 0.81 mg/dL (0.55-1.02); EST Glomerular Filtration Rate 81 mL/min (>60); Est Glom Filt Rate - Afr Amer 98 mL/min (>60); Estimated Creatinine Clearance 77.26 ml/min; Globulin 3.2 g/dL (2.2-4.2); Glucose 97 mg/dL (74-106); Lipase 85 U/L (73-393)
[2018-07-25 18:37] LABS: Anion Gap 6 (5-15); Chloride 104 mmol/L (98-107); Potassium 3.8 mmol/L (3.5-5.1); Sodium Level 144 mmol/L (136-145)
[2018-07-25 19:30] VITALS: BP 147/86; PULSE 55; RESP 16; O2SAT 98
[2018-07-25] MEDS: Sucralfate 1 GM Tablet PO (20:15)
[2018-07-25] MEDS: Metoclopramide 10 MG/2 ML Vial 5 MG IV (20:15)
== END 2018-07-25 20:26 | disposition home or self-care (01) ==
PROVIDERS: Emergency Provider Emergency Medicine
DX: K29.70 Gastritis, unspecified, without bleeding (principal); K21.9 Gastro-esophageal reflux disease without esophagitis; F32.9 Major depressive disorder, single episode, unspecified; F41.9 Anxiety disorder, unspecified; F17.200 Nicotine dependence, unspecified, uncomplicated; Z79.899 Other long term (current) drug therapy; Z87.11 Personal history of peptic ulcer disease; Z85.43 Personal history of malignant neoplasm of ovary; Z92.21 Personal history of antineoplastic chemotherapy
CPT/HCPCS: 74176; 80053; 81001; 83690; 85025; 96361; 96374; 96375; 96376; 99285; J7030; A4216

== ENCOUNTER 2018-08-10 13:49 | Observation (INO) | payer MEDICAID, SELFPAY ==
[2018-08-10] VITALS (12 sets, daily range): BP systolic 117–151; BP diastolic 63–93; PULSE 69–101; RESP 16–26; TEMP 36.3–37.1; O2SAT 95–100; BMI 22.8
--- NOTE | 2018-08-10 13:56 | NURSING ---
NO OLD EKGS
--- NOTE | 2018-08-10 14:28 | EKG12_ITS ---
Test Reason : CP Blood Pressure : / mmHG Vent. Rate : 086 BPM Atrial Rate : 086 BPM P-R Int : 134 ms QRS Dur : 070 ms QT Int : 388 ms P-R-T Axes : 085 075 056 degrees QTc Int : 464 ms Normal sinus rhythm Normal ECG Confirmed by DAVON SCHMITT, EMILIANO ([id number]), makeup editor CASSIDY CARVALHO ([id number]) on 08/13/2018 1:18:10 PM Referred By: RAJANI/FALLON Confirmed By:EMILIANO MAYS MD
--- NOTE | 2018-08-10 14:28 | RAD_ITS ---
STUDY: X-RAY CHEST REASON FOR EXAM: Female, 48 years old. Chest pain. Syncopal episode. TECHNIQUE: Single AP portable view of the chest. COMPARISON: None. FINDINGS: EKG electrodes are seen. Decreased bronchovascular markings suggestive of emphysematous changes. There is no demonstrated pleural abnormality. Normal size heart. Normal mediastinum and shahid. Normal visualized pulmonary arteries. Normal visualized aortic arch and descending thoracic aorta. Normal visualized thoracic spine. Normal visualized ribs, clavicles, and shoulders. There is no demonstrated abnormality of the visualized soft tissue structures of the upper abdomen. RAD/Chest 1 View (Portable) IMPRESSION: Decreased bronchovascular markings suggestive of emphysematous changes. No acute abnormality is seen. Electronically Signed: Gil Jaeger, at 14:54 EDT , Service support ,
[2018-08-10 14:54] LABS: Absolute Lymphocyte Count 1.25 X10^3/ul (0.83-4.51); Absolute Neutrophil Count 4.3 X10^3/uL (2.0-7.7); Basophil# 0.02 X10^3/uL; Basophil% 0.3 % (0-1); Eosinophil# 0.11 X10^3/uL; Eosinophils% 1.8 % (0-5); Hematocrit 44.3 % (37-47); Lymphocyte # 1.25 X10^3/ul (4.0); Lymphocyte % 20.8 % (19-41); Mean Corp Hgb Conc 33.9 g/gl (32-36); Mean Corpuscular Hgb 32.6 pg (27.0-32.0); Mean Corpuscular Volume 96.3 fL (81-99); Mean Platelet Vol. 11.6 fl (6.2-12.0); Monocyte# 0.32 X10^3/uL; Monocyte% 5.3 % (0-10); Neutrophil # 4.29 X10^3/uL (2.7-7.7); Neutrophil % 71.6 % (47-70); POSITIVE COUNT NO; POSITIVE DIFFERENTIAL NO; POSITIVE MORPHOLOGY NO; Platelet Count 208 K/mm3 (150-450); RBC Distribution Width CV 13.2 % (11.6-14.6); RBC Distribution Width SD 46.2 fl (35.1-43.9)
[2018-08-10] MEDS: proMETHazine 25 MG/ML Syringe 12.5 MG IV (15:45)
[2018-08-10] MEDS: Morphine 4 MG/ML Syringe IV (15:45)
[2018-08-10] MEDS: 0.9% Normal Saline 1,000 ML 150 ML IV (15:45)
--- NOTE | 2018-08-10 15:50 | ED.RN ---
delay in medicating d/t difficult iv access.
--- NOTE | 2018-08-10 15:54 | NURSING ---
DR BRAVO IN ER
[2018-08-10 16:10] LABS: Anion Gap 4 (5-15); BUN 7 mg/dL (7-18); BUN/Creat Ratio 8.7 RATIO (10-20); Calcium,Total 9.4 mg/dL (8.5-10.1); Chloride 108 mmol/L (98-107); EST Glomerular Filtration Rate 82 mL/min (>60); Est Glom Filt Rate - Afr Amer 99 mL/min (>60); Estimated Creatinine Clearance 78.23 ml/min; Glucose 90 mg/dL (74-106); Potassium 4.4 mmol/L (3.5-5.1); Sodium Level 141 mmol/L (136-145)
--- NOTE | 2018-08-10 16:14 | ED.DCSUM_ITS ---
- ER Visit Summary Date of Service: 08/10/18 Chief Complaint: Chest pain History of Present Illness: The patient is a 48 F with chest pain that started yesterday. Patient states after getting out of the shower she took a nitro and then had a syncopal episode. She fell to the floor and hit her chest on the floor. She denies chest wall pain in addition to underlying chest pain. Patient states her doctors wanted to put stents in her heart in the past. She states her last heart cath was approximately a year ago at [place]. She is scheduled to see a food service steward in [place] but does not currently have a food service steward. Physical Examination: Vital signs unremarkable. Patient sitting upright in bed. She is intermittently tearful. Heart is regular rate and rhythm. Lung sounds are clear. She does have anterior chest wall tenderness. No crepitus. Abdomen is soft and nontender. Test Results: EKG is sinus 86 with no acute ischemia. Portable chest x-ray shows emphysema with no acute ab normality. CBC and chemistry studies normal. Troponin negative. Emergency Department Course and Treatment: Patient reports an allergy to aspirin. She was given morphine and Phenergan here as she has an allergy to NSA IDs. [facility] do not see prior stress test or heart cath. Patient was discussed with hospitalist will be admitted for further cardiac evaluation. Treatment Plan: [] Disposition: Admit Impression: Chest pain This note was generated with [employer] dictation software. It may contain incorrect words, spelling, and punctuation that were not noted in review of the chart prior to signing ED Disposition - Plan for ED Patient: Referrals: Care Physician,No Primary [Primary Care Provider] -
--- NOTE | 2018-08-10 16:22 | PCM.HP.STD ---
Problem List (1) Chest pain Status: Acute (2) HTN (hypertension) Status: Chronic (3) HLD (hyperlipidemia) Status: Acute (4) CAD (coronary artery disease) Status: Chronic (5) Anxiety and depression Status: Chronic (6) GERD (gastroesophageal reflux disease) Status: Chronic Qualifiers: (7) History of ovarian cancer Status: Chronic (8) Tobacco use Status: Chronic History of Present Illness Date of Admission: 08/10/18 Chief Complaint: Chest pain The patient is a 48 year old F with past medical history of ovarian cancer, coronary artery disease, hypertension, hyperlipidemia, nicotine abuse, disorder, depression, who presented to the emergency room with chest pain. She describes this as a left-sided burning sharp pain that is 10 out of 10. It comes and goes, lasting for several minutes at a time. It is been doing this since last Friday. The first episode occurred when she was fighting with her grandson. She notes that she does have some radiation into her left arm. She has no associated shortness of breath, dizziness, or lightheaded. She does have associated sweating episodes and nausea with the chest pain episodes. She has no aggravating or alleviating episodes. She did not feel that is affected by food. The patient does have a history of CAD, hypertension, hyperlipidemia and has not been taking her medications as she needs refills and has not established a new PCP in this area after moving here. She reportedly had a heart catheterization about 1 year ago at [facility] and was told she needed a stent but had refused at that time. Also she reports a history of ovarian cancer stage III, and that she refused her last round of chemotherapy, however she does say that she is in remission. She continues to smoke 4 to 5 cigarettes/day. Both of her parents have a history of coronary disease. [] Past Medical History Past Medical History (Chronic Problems): Chronic Problems History of ovarian cancer (Chronic) Tobacco use (Chronic) Anxiety and depression (Chronic) GERD (gastroesophageal reflux disease) (Chronic) HTN (hypertension) (Chronic) CAD (coronary artery disease) (Chronic) Allergies acetaminophen [From Darvocet-N] Allergy (Verified 08/10/18 13:52) Other codeine Allergy (Verified 08/10/18 13:52) Hives Iodinated Contrast- Oral and IV Dye [CT] Allergy (Verified 08/10/18 13:52) Rash ondansetron [From Zofran] Allergy (Verified 08/10/18 13:52) Shortness of breath propoxyphene [From Darvocet-N] Allergy (Verified 08/10/18 13:52) Other aspirin Adverse Reaction (Verified 08/10/18 13:52) Other BLISTER ibuprofen [From Motrin] Adverse Reaction (Verified 08/10/18 13:52) Other BLISTER levofloxacin [From Levaquin] Adverse Reaction (Verified 08/10/18 13:52) Other BLISTER NSAIDS (Non-Steroidal Anti-Inflamma Adverse Reaction (Verified 08/10/18 13:52) Other BLISTER Home Medications: Ambulatory Orders Medication Instructions Recorded ALPRAZolam [Xanax] 1.5 mg PO TID PRN PRN 04/07/18 Zolpidem Tartrate [Ambien] 10 mg PO QHS PRN PRN 04/07/18 proMETHazine tablet [Phenergan 25 mg PO Q6H PRN PRN #12 tab 07/25/18 tablet] Acetaminophen [Tylenol Extra 500 - 1,000 mg PO Q6H PRN PRN 08/10/18 Strength] Albuterol Inhaler [Ventolin Hfa 1 - 2 puff INHALATION Q6H PRN PRN 08/10/18 (SP)] Biotin 2,500 mcg PO DAILY 08/10/18 Dicyclomine HCl [Bentyl] 10 mg PO Q6H PRN 08/10/18 Lamotrigine 300 mg PO QHS 08/10/18 Pantoprazole Sodium [Protonix] 40 mg PO DAILY 08/10/18 Prednisone 20 mg PO DAILY PRN PRN 08/10/18 Surgical History: appendectomy, hysterectomy, - - radical hysterectomy with additional resections for ovarian cancer Lives: Spouse/ Significant Other Smoking Status: Current every day smoker Tobacco Use: Cigarettes Alcohol: None Drugs: None - *Family History Maternal History Items: Heart Disease Paternal History Items: Heart Disease Review of Systems Constitutional: Denies: Chills, Fever, Weight Change Eyes: Reports: - HEENT: Denies: Head Aches, Sinus Congestion, Sinus Drainage Cardiovascular: Reports: Chest Pain. Denies: Edema, Heaviness, Light Headedness, Palpitations, Syncope Respiratory: Denies: Cough, Shortness of Breath, Shortness of breath at rest, Sputum production Gastrointestinal: Reports: Nausea. Denies: Abdominal Pain, Vomiting Genitourinary: Denies: Dysuria Musculoskeletal: Denies: Joint Pain, Joint Tenderness Skin: Denies: Rash, Wounds Neurological: Denies: Numbness, Tingling, Focal weakness Psychiatric: Denies: Anxiety, Depression, Homicidal Ideations, Suicidal Ideations Hematologic/ Lymphatic: Denies: Easy Bruising, Easy Bleeding VTE Information - Inpt Only VTE Present on Admission: No VTE Mechan Device Prophylaxis: None VTE Pharm Prophylaxis ordered?: Yes Patient Problems: Active and Suspected Problems Chest pain (Acute) HLD (hyperlipidemia) (Acute) - Physical Exam General: Alert, Oriented x3, Cooperative HEENT: Atraumatic, PERRLA, EOMI, Normocephalic Neck: Supple, No JVD, Negative Carotid Bruits Lungs: Clear to auscultation, Normal air movement Cardiovascular: Regular rate, No murmurs Abdomen: Bowel Sounds Present, Soft, Non Tender Extremities: No edema, Capillary Refill Less than 3 Seconds Skin: No rashes, No breakdown Musculoskeletal: No Tenderness to Palpation of Joints or Extremities Neurological: Cranial nerves II-XII grossly intact Psych/Mental Status: Appropriate, Depressed Vital Signs Temp Pulse Resp BP Pulse Ox 97.3 F L 73 17 151/93 H 99 08/10/18 13:50 08/10/18 15:47 08/10/18 15:47 08/10/18 15:47 08/10/18 15:47 Oxygen Delivery Method Room Air Weight: 137 lb 2.04 oz Body Mass Index (BMI) 22.8 Laboratory Tests Past 24 Hrs 08/10/18 08/10/18 14:45 15:00 WBC 6.0 RBC 4.60 Hgb 15.0 Hct 44.3 MCV 96.3 MCH 32.6 H MCHC 33.9 RDW 13.2 RDW Differential 46.2 H Plt Count 208 MPV 11.6 Immature Gran % (Auto) 0.200 Neut % (Auto) 71.6 H Lymph % (Auto) 20.8 Eddy % (Auto) 5.3 Eos % (Auto) 1.8 Baso % (Auto) 0.3 Absolute Neuts (auto) 4.3 Absolute Lymphs (auto) 1.25 Total Counted Not Reportable Sodium 141 Potassium 4.4 Chloride 108 H Carbon Dioxide 29.0 Anion Gap 4 L BUN 7 Creatinine 0.80 Estim Creat Clear Calc 78.23 Est GFR (MDRD) Af Amer 99 Est GFR (MDRD) Non-Af 82 BUN/Creatinine Ratio 8.7 L Glucose 90 Calcium 9.4 Troponin I < 0.015 Assessment/Plan All Active Problems Abdominal pain (Acute) Nausea (Acute) Chest pain (Acute) HLD (hyperlipidemia) (Acute) 1. Chest pain - reportedly hx of heart cath x1 year ago at which point she refused stents (at [place]). Obtain records. She has been off of her home medications. She has HTN, HLD, still smokes, and has + Fm Hx (both parents CAD). Trop, CXR, EKG SR. Cycle enzymes, maintain tele, stress test in AM, resume meds she was supposed to be taking. FLP in AM. Reportedly allergic to aspirin - start plavix. Repeat EKGs 2. Stage 3 Uterine cancer - s/p chemo x18 doses, hysterectomy, pt of Dr. Brady at [place]. Pt states she is in remission but also that she refused to keep having chemo. Obtain records to clarify her current status. 3. HTN/HLD - resume lisinopril, metoprolol, statin 4. Nicotine abuse - patch if desired 5. Anxiety/Depression - on ambien/xanax 6. COPD/emphysema - no acute exacerbation. prn albuterol. 7. Hx Seizure disorder - on lamictal DVT ppx: Lovenox This patient was seen by Varghese Rosado PA-C under the supervision of Dr. Vazquez
--- NOTE | 2018-08-10 16:48 | CASEMGMT ---
RN CM Assessment Introduced role of RN CM to patient and patient significant other Eric at bedside.? Patient is alert, oriented and able?to participate in RN CM Assessment. ?Care providers, pharmacy, and demographics verified. Presentation: CP and took NTG yesterday, has a syncopal episode. C/o Bilt Shoulder pain since syncopal Episode. Has a H/o Stage III Ovarian CA Tx w/Chemo in 1999, Recurred x2yrs ago and initiated Chemo but then Stopped per ER MD H&P on 07/25/18. Admit Dx: CP Re-Admit: No, ER- 07/25/18 for Abd Pain. Barriers/Issues: Patient states that she needs a shower chair d/t dizziness. Also, wants to see about meal delivery as her Sig. Other is going to have upcoming surgery and patient states that it would help them during this time. No PCP, this senior underwriter provided a list to Sig. Other. Patient states x2 weeks ago attempt to establish a PCP-[facility] in [place], however has not received a call back. PCP: None Specialists: None [facility]erred [facility]acy[facility] Insurance: [employer] Benefit: Yes? LNOK: Sig. Other Eric Low LW/HPOA: No, Would like information Living Arrangements:?Lives with Sig. Other in a 2 story home, approx 17-20 steps to enter ADL?s: Independent with ambulation and ADL's Transportation: Sig. Other Eric and on DC DME: None HHC: Past, cannot recall Agency SNF: None Goal: Home, See above issue. DC PLAN: Home with Rx Shower Chair, resources on Meal Delivery. No further needs anticipated at this time. HERON Mckenzie
--- NOTE | 2018-08-10 16:54 | EKG12_ITS ---
Test Reason : CP ADMISSION Blood Pressure : / mmHG Vent. Rate : 063 BPM Atrial Rate : 063 BPM P-R Int : 142 ms QRS Dur : 084 ms QT Int : 406 ms P-R-T Axes : 078 058 049 degrees QTc Int : 415 ms Normal sinus rhythm with sinus arrhythmia Normal ECG Confirmed by DAVON SCHMITT, EMILIANO ([id number]), editor magazine CASSIDY CARVALHO ([id number]) on 08/13/2018 1:37:53 PM Referred By: LAWRENCE Confirmed By:EMILIANO MAYS MD
[2018-08-10] MEDS: Clopidogrel Bisulfate 75 MG Tablet PO (18:22)
[2018-08-10] MEDS: Ipratropium/Albuterol Sulfate 3 ML AMPUL.NEB INHALATION (19:00)
[2018-08-10] MEDS: 0.9% NaCl Peripheral Flush Adult/Peds IV (21:03)
[2018-08-10] MEDS: Morphine 2 MG/ML Syringe IV (21:03)
[2018-08-10] MEDS: Metoprolol Tartrate 25 MG Tablet 12.5 MG PO (22:05)
[2018-08-10] MEDS: Atorvastatin Calcium 80 MG Tablet PO (22:05)
[2018-08-10] MEDS: lamoTRIgine 150 MG Tablet 300 MG PO (22:05)
[2018-08-10] MEDS: Zolpidem Tartrate 5 MG Tablet 10 MG PO (22:06)
[2018-08-11] VITALS (13 sets, daily range): BP systolic 104–135; BP diastolic 62–84; PULSE 61–106; RESP 16–18; TEMP 36.4–37; O2SAT 97–100
[2018-08-11] MEDS: Morphine 2 MG/ML Syringe IV ×2 (02:16→06:27)
[2018-08-11] MEDS: 0.9% NaCl Peripheral Flush Adult/Peds IV ×5 (02:16→23:30)
[2018-08-11] MEDS: 0.9% Normal Saline 1,000 ML 100 ML IV (02:21)
[2018-08-11 05:39] LABS: Hematocrit 40.7 % (37-47); Mean Corp Hgb Conc 31.9 g/gl (32-36); Mean Corpuscular Hgb 31.3 pg (27.0-32.0); Mean Corpuscular Volume 98.1 fL (81-99); Mean Platelet Vol. 11.3 fl (6.2-12.0); Platelet Count 136 K/mm3 (150-450); RBC Distribution Width CV 13.1 % (11.6-14.6); RBC Distribution Width SD 46.6 fl (35.1-43.9); Red Blood Count 4.15 M/mm3 (4.2-5.4); White Blood Count 4.2 K/mm3 (4.4-11.0)
[2018-08-11 05:40] LABS: Partial Thromboplast Time 27.5 Seconds (24.1-36.2)
[2018-08-11 05:42] LABS: Scan Indicated on CBC? Y/N NO
[2018-08-11 05:43] LABS: International Normalized Ratio 1.1; Prothrombin Time (Protime)PT. 13.8 SECONDS (11.7-14.9)
[2018-08-11 05:47] LABS: AST(SGOT) 15 U/L (15-37); Alanine Aminotransfer ALT/SGPT 18 U/L (13-56); Alkaline Phosphatase 67 U/L (45-117); Anion Gap 4 (5-15); BUN 11 mg/dL (7-18); BUN/Creat Ratio 13.5 RATIO (10-20); Calcium,Total 8.1 mg/dL (8.5-10.1); Chloride 114 mmol/L (98-107); Cholesterol 135 mg/dL (200); Creatinine, Serum 0.82 mg/dL (0.55-1.02); EST Glomerular Filtration Rate 80 mL/min (>60); Est Glom Filt Rate - Afr Amer 97 mL/min (>60); Estimated Creatinine Clearance 76.32 ml/min; Globulin 3.1 g/dL (2.2-4.2); Glucose 95 mg/dL (74-106); High Density Lipoprotein 49 mg/dL; Potassium 4.1 mmol/L (3.5-5.1); Protein, Total 6.1 g/dL (6.4-8.2); Sodium Level 145 mmol/L (136-145); Triglycerides 139 mg/dL; Very Low Density Lipoprotein 28 mg/dL (5-40)
--- NOTE | 2018-08-11 05:55 | EKG12_ITS ---
Test Reason : AM EKG Blood Pressure : / mmHG Vent. Rate : 061 BPM Atrial Rate : 061 BPM P-R Int : 164 ms QRS Dur : 082 ms QT Int : 420 ms P-R-T Axes : 077 067 053 degrees QTc Int : 422 ms Normal sinus rhythm Confirmed by DAVON SCHMITT, EMILIANO ([id number]), map editor CASSIDY CARVALHO ([id number]) on 08/13/2018 1:34:37 PM Referred By: DR BRAVO Confirmed By:EMILIANO MAYS MD
[2018-08-11 06:11] LABS: Amphetamine Urine VISTA NEGATIVE (<1000 ng/mL); Barbiturate Urine VISTA NEGATIVE (< 200 ng/mL); Benzodiazepine Urine VISTA POSITIVE (< 200 ng/mL); Cocaine Urine VISTA NEGATIVE (< 300 ng/mL); Ecstacy Urine VISTA NEGATIVE (< 500 ng/mL); Methadone Urine VISTA NEGATIVE (< 300 ng/mL); PCP Urine VISTA NEGATIVE (< 25 ng/mL); THC Urine VISTA POSITIVE (< 50 ng/mL); Vista UDS pH Range 6
[2018-08-11] MEDS: Lisinopril 5 MG Tablet PO (06:29)
[2018-08-11] MEDS: Clopidogrel Bisulfate 75 MG Tablet PO (06:29)
[2018-08-11] MEDS: Ipratropium/Albuterol Sulfate 3 ML AMPUL.NEB INHALATION (06:38)
[2018-08-11] MEDS: ALPRAZolam 0.5 MG Tablet 1.5 MG PO ×3 (07:51→23:28)
[2018-08-11] MEDS: proMETHazine 25 MG/ML Syringe 6.25 MG IV ×2 (08:50→22:34)
[2018-08-11] MEDS: Metoprolol Tartrate 25 MG Tablet 12.5 MG PO (11:19)
[2018-08-11] MEDS: Pantoprazole Sodium 40 MG Tablet PO (11:20)
[2018-08-11] MEDS: oxyCODONE 5 MG Tablet PO ×3 (11:20→23:28)
[2018-08-11] MEDS: Lidocaine 5% Patch 1 PATCH TOPICAL (13:20)
--- NOTE | 2018-08-11 13:24 | CASEMGMT ---
Addendum entered by Renee Quijano 08/11/18 13:36: SW stopped by patient's room again. She asked for a pen so she could complete Healthcare POA and Healthcare LW. SW offered to help complete documents, but patient and her significant other said they could complete them. SW reminded her not to sign documents unless there is a notary or 2 non family witnesses. Patient was dozing off as RENETTA explained this. Renee VENEGAS Original Note: Patient was given advance directives per her request. She was also given the phone number for [facility] for home delivered meals. RENETTA also gave her a [facility] Directory. Renee VENEGAS
--- NOTE | 2018-08-11 13:32 | PCM.PROGNOTE ---
Patient Problems: Active and Suspected Problems Chest pain (Acute) HLD (hyperlipidemia) (Acute) Subjective: Pt primarily c/o BL shoulder pain L>R. She states she did recently injure her shoulders when she was carrying boxes while moving. This pain radiates into her arms and chest and back. She also complains that she has ulcers forming in her lip that used to develop when she was on chemo. She states that these were treated in the past with topical antivirals. No fever/ chills. Her drug screen tested positive for opiates, benzos, and marijuana. She is prescribed benzos and received opiates here prior to test, however she stated she no longer smokes marijuana. She does still smoke. She has been frequently requesting morphine, states percocet works well for this and will transition. - Physical Exam General: Alert, Oriented x3, Cooperative HEENT: Atraumatic, PERRLA, EOMI, Normocephalic Neck: Supple, No JVD, Negative Carotid Bruits Lungs: Clear to auscultation, Normal air movement Cardiovascular: Regular rate, No murmurs Abdomen: Bowel Sounds Present, Soft, Non Tender Extremities: No edema, Capillary Refill Less than 3 Seconds Skin: No rashes, No breakdown Musculoskeletal: No Tenderness to Palpation of Joints or Extremities Neurological: Cranial nerves II-XII grossly intact Psych/Mental Status: Normal Affect, Appropriate, Alert and oriented to time, place, person, mood and affect Vital Signs Temp Pulse Resp BP Pulse Ox 98.3 F 75 16 134/63 H 99 08/11/18 11:26 08/11/18 11:26 08/11/18 11:26 08/11/18 11:26 08/11/18 11:26 Oxygen Delivery Method Room Air Weight: 137 lb 2.04 oz Body Mass Index (BMI) 22.8 Intake and Output for Last 24 Hours 08/09/18 08/10/18 08/11/18 23:59 23:59 23:59 Intake Total 1624 / 1624 1329 / 1329 Output Total 0 / 0 Balance 1624 / 1624 1329 / 1329 Laboratory Tests Past 24 Hrs 08/10/18 08/10/18 08/10/18 14:45 15:00 15:00 WBC 6.0 RBC 4.60 Hgb 15.0 Hct 44.3 MCV 96.3 MCH 32.6 H MCHC 33.9 RDW 13.2 RDW Differential 46.2 H Plt Count 208 MPV 11.6 Immature Gran % (Auto) 0.200 Neut % (Auto) 71.6 H Lymph % (Auto) 20.8 [place] % (Auto) 5.3 Eos % (Auto) 1.8 Baso % (Auto) 0.3 Absolute Neuts (auto) 4.3 Absolute Lymphs (auto) 1.25 Total Counted Not Reportable PT INR APTT Sodium 141 Potassium 4.4 Chloride 108 H Carbon Dioxide 29.0 Anion Gap 4 L BUN 7 Creatinine 0.80 Estim Creat Clear Calc 78.23 Est GFR (MDRD) Af Amer 99 Est GFR (MDRD) Non-Af 82 BUN/Creatinine Ratio 8.7 L Glucose 90 Calcium 9.4 Magnesium 2.0 Total Bilirubin AST ALT Alkaline Phosphatase Troponin I < 0.015 Total Protein Albumin Globulin Albumin/Globulin Ratio Triglycerides Cholesterol LDL Cholesterol VLDL Cholesterol HDL Cholesterol Urine Opiates Screen Urine Methadone Screen Ur Barbiturates Screen Ur Phencyclidine Scrn Ur Amphetamines Screen U Methamphetamin-MDMA U Benzodiazepines Scrn Urine Cocaine Screen U Cannabinoids Screen Ur Drug Screen Comment 08/10/18 08/10/18 08/11/18 18:15 21:30 05:10 WBC 4.2 L RBC 4.15 L Hgb 13.0 Hct 40.7 MCV 98.1 MCH 31.3 MCHC 31.9 L RDW 13.1 RDW Differential 46.6 H Plt Count 136 L MPV 11.3 Immature Gran % (Auto) Neut % (Auto) Lymph % (Auto) [place] % (Auto) Eos % (Auto) Baso % (Auto) Absolute Neuts (auto) Absolute Lymphs (auto) Total Counted PT INR APTT Sodium Potassium Chloride Carbon Dioxide Anion Gap BUN Creatinine Estim Creat Clear Calc Est GFR (MDRD) Af Amer Est GFR (MDRD) Non-Af BUN/Creatinine Ratio Glucose Calcium Magnesium Total Bilirubin AST ALT Alkaline Phosphatase Troponin I < 0.015 < 0.015 Total Protein Albumin Globulin Albumin/Globulin Ratio Triglycerides Cholesterol LDL Cholesterol VLDL Cholesterol HDL Cholesterol Urine Opiates Screen Urine Methadone Screen Ur Barbiturates Screen Ur Phencyclidine Scrn Ur Amphetamines Screen U Methamphetamin-MDMA U Benzodiazepines Scrn Urine Cocaine Screen U Cannabinoids Screen Ur Drug Screen Comment 08/11/18 08/11/18 08/11/18 05:10 05:10 05:55 WBC RBC Hgb Hct MCV MCH MCHC RDW RDW Differential Plt Count MPV Immature Gran % (Auto) Neut % (Auto) Lymph % (Auto) [place] % (Auto) Eos % (Auto) Baso % (Auto) Absolute Neuts (auto) Absolute Lymphs (auto) Total Counted PT 13.8 INR 1.1 APTT 27.5 Sodium 145 Potassium 4.1 Chloride 114 H Carbon Dioxide 27.0 Anion Gap 4 L BUN 11 Creatinine 0.82 Estim Creat Clear Calc 76.32 Est GFR (MDRD) Af Amer 97 Est GFR (MDRD) Non-Af 80 BUN/Creatinine Ratio 13.5 Glucose 95 Calcium 8.1 L Magnesium Total Bilirubin 0.30 AST 15 ALT 18 Alkaline Phosphatase 67 Troponin I Total Protein 6.1 L Albumin 3.0 L Globulin 3.1 Albumin/Globulin Ratio 1.0 Triglycerides 139 Cholesterol 135 LDL Cholesterol 58 VLDL Cholesterol 28 HDL Cholesterol 49 Urine Opiates Screen POSITIVE H Urine Methadone Screen NEGATIVE Ur Barbiturates Screen NEGATIVE Ur Phencyclidine Scrn NEGATIVE Ur Amphetamines Screen NEGATIVE U Methamphetamin-MDMA NEGATIVE U Benzodiazepines Scrn POSITIVE H Urine Cocaine Screen NEGATIVE U Cannabinoids Screen POSITIVE H Ur Drug Screen Comment Medical Necessity - Tobacco Use Smoking Status: Current every day smoker Tobacco Use: Cigarettes Assessment/Plan All Active Problems Abdominal pain (Acute) Nausea (Acute) Chest pain (Acute) HLD (hyperlipidemia) (Acute) 1. Chest pain - reportedly hx of heart cath x1 year ago at which point she refused stents (at [place]). Obtain records - only records obtained from [place] were a negative stress in 2014. She has been off of her home medications - restarted these. She has HTN, HLD, still smokes, and has + Fm Hx (both parents CAD). Trop, CXR, EKG SR. Enzymes negative. EKG no changes. Tele does dhow 15 beats of Vtach. Stress pending. Cardiology consulted. -aspirin allergic, however dropped platelets after plavix x 1 dose so discontinued. 2. Stage 3 Uterine cancer - s/p chemo x18 doses, hysterectomy, pt of Dr. Brady at [place]. Pt states she is in remission but also that she refused to keep having chemo. Obtain records to clarify her current status. 3. Thrombocytopenia - after plavix. DC. Trend. 4. HTN/HLD - resume lisinopril, metoprolol, statin 5. Nicotine abuse - patch if desired 6. Anxiety/Depression - on ambien/xanax 7. COPD/emphysema - no acute exacerbation. prn albuterol. 8. Hx Seizure disorder - on lamictal 9. Marijuana abuse 10. Shoulder pain - suspect shoulder strain - lidoderm patch added, tylenol prn. Injured when she was moving boxes recently. O/p follow up. 11. Oral herpes outbreak - acyclovir added. DVT ppx: SCDs This patient was seen by Varghese Rosado PA-C under the supervision of Dr. Vazquez
--- NOTE | 2018-08-11 14:29 | STRESSREP ---
Stress Test Report Date: 08-11-18 Procedure: Pharmacologic stress nuclear imaging study Indications: Chest pain; CAD; cardiac dysrhythmia Consent: Per the patient Procedure: The patient underwent pharmacologic (Regadenoson) evaluation with a peak heart rate of 110 beats per minute (63 %predicted maximal heart rate) and a peak blood pressure of 128/80 mmHg. The baseline ECG demonstrated normal sinus rhythm. The peak pharmacologic ECG demonstrated no obvious ECG changes. There were no cardiac dysrhythmias pretest, during pharmacologic infusion, or recovery. There was no complaint of chest discomfort during pharmacologic infusion or recovery. The examination was discontinued secondary to completion of protocol. Impression: 1. Pharmacologic (Regadenoson) evaluation 2. Peak pharmacologic ECG with no obvious ECG changes. 3. There were no cardiac dysrhythmias pretest, during pharmacologic infusion, or recovery. 4. Nuclear images pending Myocardial perfusion imaging study: Technique: The patient was injected with 12.0 millicuries of technetium 99m Cardiolite and subsequently rest SPECT Cardiolite nuclear imaging was obtained in the horizontal long, vertical long, and short axis views. The patient underwent pharmacologic (Regadenoson) evaluation with a peak heart rate of 110 beats per minute (63 % percent predicted maximal heart rate) and a peak blood pressure of 128/80 mmHg. The patient was injected with 32.5 millicuries of technetium 99m Cardiolite and subsequently stress SPECT Cardiolite nuclear imaging was obtained in the horizontal long, vertical long, and short axis views. A gated Cardiolite study at peak stress was obtained. Interpretation: Rest and stress SPECT Cardiolite nuclear imaging status post realignment, normalization, and attenuation correction demonstrate on the raw image analysis evidence of underlying body motion/artifact during image acquisition and subsequently a small area of diminished tracer uptake in portions of the mid anterior segments without significant change between rest and stress. There is end systolic thickening and brightening. The gated Cardiolite study demonstrates myocardial thickening and inward wall motion. The reported LVEF is 60 %. Impression: 1. Rest and stress SPECT Cardiolite nuclear imaging demonstrate evidence of body motion during image acquisition as well as a small area of diminished tracer uptake in portions of the mid anterior segments without significant change between rest and stress potentially compatible with soft tissue attenuation/artifact, however, an area of previous myocardial injury/infarction cannot necessarily be excluded. There are no myocardial perfusion changes considered diagnostic for associated stress-induced myocardial ischemia. 2. The gated Cardiolite study reports an LVEF of 60 %. This note was generated with [employer]ation software. It may contain incorrect words, spelling, and punctuation that were not noted in checking the note before signing.
[2018-08-11] MEDS: Acetaminophen 325 MG Tablet 650 MG PO (15:23)
[2018-08-11] MEDS: Acyclovir 200 MG Capsule 400 MG PO ×2 (15:23→22:31)
--- NOTE | 2018-08-11 15:34 | ECHOD_ITS ---
Reason For Study: CAD Procedure This was a 2D Doppler, Color Flow transthoracic echocardiogram. Exam performed portable in patient room. Left Ventricle Normal LV size. Left ventricular systolic function is normal. The estimated ejection fraction is 60 %. No evidence for diastolic dysfunction. No regional wall motion abnormalities noted. Right Ventricle Normal RV size. Normal systolic function. Atria Normal left atrium. Normal right atrium. No doppler evidence for ASD. Mitral Valve There is no mitral annular calcification. Normal mitral valve. Trivial mitral valve insufficiency. Tricuspid Valve Normal tricuspid valve. Trivial tricuspid valve insufficiency. Aortic Valve Trisinus/trileaflet aortic valve. Normal aortic valve. Pulmonic Valve The pulmonic valve is not well visualized. Great Vessels Normal sized aortic root. Pericardium/Pleural No pericardial effusion. MMode/2D Measurements & Calculations LVIDd: 3.9 cm IVSd: 0.99 cm Ao root diam: 3.2 cm LVIDs: 2.7 cm LVPWd: 1.0 cm RVDd: 2.8 cm FS: 31.3 % LAV(MOD-bp): 43.4 ml LVAd ap4: 26.6 cm2 SV(MOD-sp4): 38.4 ml LAV(MOD-bp) Indexed: 25.8 ml/m2 EDV(MOD-sp4): 71.4 ml LAV(MOD-sp2): 52.6 ml EDV(sp4-el): 72.7 ml LAV(MOD-sp4): 32.9 ml LVAs ap4: 16.8 cm2 ESV(MOD-sp4): 33.0 ml ESV(sp4-el): 33.7 ml EF(MOD-sp4): 53.8 % EF(sp4-el): 53.7 % SV(sp4-el): 39.0 ml LA A4 area: 14.2 cm2 LA dimension(2D): 2.8 cm RA A4 area: 11.7 cm2 Doppler Measurements & Calculations MV E max dmitry: 72.2 cm/sec Lat Peak E' Dmitry: 13.3 cm/sec Med Peak E' Dmitry: 11.4 cm/sec MV A max dmitry: 63.1 cm/sec E/E' lat: 5.4 E/E' med: 6.3 MV E/A: 1.1 Ao V2 max: 132.5 cm/sec LV V1 max: 108.6 cm/sec PA V2 max: 91.3 cm/sec Ao max P.0 mmHg LV V1 max P.7 mmHg Interpretation Summary Left ventricular systolic function is normal. The estimated ejection fraction is 60 %. Trivial mitral valve insufficiency. Trivial tricuspid valve insufficiency. No evidence for diastolic dysfunction. Ordering Physician: Wm Floyd Referring Physician: No PCP Performed By: Erica Ellison RDCS
--- NOTE | 2018-08-11 15:41 | CASEMGMT ---
According to the [facility] website, the following are in-network tertiary facilities: [facility], [place], [facility], [facility], [facility], and . Grace JANE CM
--- NOTE | 2018-08-11 16:05 | PCM.CONS.C ---
Problem List (1) Angina pectoris Status: Acute (2) Ventricular tachycardia (paroxysmal) Status: Acute (3) Syncope Status: Acute (4) CAD (coronary artery disease) Status: Acute Qualifiers: Coronary Disease-Associated Artery/Lesion type: [place] artery [place] vs. transplanted heart: [place] heart (5) HLD (hyperlipidemia) Status: Acute (6) HTN (hypertension) Status: Chronic Reason for Consult Date of Consultation: 08/11/18 History of Present Illness: The patient is a 48 year old white female with a past cardiovascular history which is included hyperlipidemia, hypertension, CAD, who presents for symptoms concerning for angina pectoris, with findings of ventricular tachycardia, as well as a history of syncope. She states she has been evaluated in [place], [place] in the past. She was told she had underlying CAD and required PCI. At that point in time she declined. She also was told she may need some type of pacemaker device . Again she declined further evaluation or care. She states she does not recall having any other cardiovascular diagnostic studies/interventions performed. She is due to follow-up with [facility] cardiovascular services at their [place], [place] location. In the interim she states she was having chest discomfort. She is nitroglycerin sublingual x1 with relief. She had recurrent chest discomfort and re-use nitroglycerin sublingual x1. She states she then lost consciousness and fell forward. Since that time she states her shoulders have been sore . She states her chest discomfort, which can occur at any time, it is a burning sensation in the center of her chest. She states she is chronically short of breath and dyspneic. She does not appear to describe orthopnea or PND. She states occasionally she has edema of her ankle area. There has been no obvious palpitations that she is aware of. She states she has had syncope in the past. He presented to the hospital for further evaluation. She is undergone cardiac evaluation with cardiac enzymes. They have been negative. Her ECGs have demonstrated sinus rhythm with no acute ECG changes. She is undergone evaluation with cardiac telemetry. She had what appeared to be an episode of a nonsustained wide-complex tachycardia appearing compatible with nonsustained VT lasting 15 beats in duration. This was reported as occurring at approximately 4:30 AM. She underwent a pharmacologic stress nuclear imaging study. This demonstrated findings potentially compatible with soft tissue/breast attenuation however a previous area of injury in the anterior myocardium cannot necessarily be excluded. There was no evidence of stress-induced myocardial ischemia. Based upon her history, her symptoms, her ventricular ectopy, etc. cardiology was consulted to further evaluate the patient. [] Past Medical History Allergies/Adverse Reactions: Allergies acetaminophen [From Darvocet-N] Allergy (Verified 08/10/18 13:52) Other codeine Allergy (Verified 08/10/18 13:52) Hives Iodinated Contrast- Oral and IV Dye [CT] Allergy (Verified 08/10/18 13:52) Rash ondansetron [From Zofran] Allergy (Verified 08/10/18 13:52) Shortness of breath propoxyphene [From Darvocet-N] Allergy (Verified 08/10/18 13:52) Other aspirin Adverse Reaction (Verified 08/10/18 13:52) Other BLISTER ibuprofen [From Motrin] Adverse Reaction (Verified 08/10/18 13:52) Other BLISTER levofloxacin [From Levaquin] Adverse Reaction (Verified 08/10/18 13:52) Other BLISTER NSAIDS (Non-Steroidal Anti-Inflamma Adverse Reaction (Verified 08/10/18 13:52) Other BLISTER Home Medications: Ambulatory Orders Medication Instructions Recorded ALPRAZolam [Xanax] 1.5 mg PO TID PRN PRN 04/07/18 Zolpidem Tartrate [Ambien] 10 mg PO QHS PRN PRN 04/07/18 proMETHazine tablet [Phenergan 25 mg PO Q6H PRN PRN #12 tab 07/25/18 tablet] Acetaminophen [Tylenol Extra 500 - 1,000 mg PO Q6H PRN PRN 08/10/18 Strength] Albuterol Inhaler [Ventolin Hfa 1 - 2 puff INHALATION Q6H PRN PRN 08/10/18 (SP)] Biotin 2,500 mcg PO DAILY 08/10/18 Dicyclomine HCl [Bentyl] 10 mg PO Q6H PRN 08/10/18 Lamotrigine 300 mg PO QHS 08/10/18 Pantoprazole Sodium [Protonix] 40 mg PO DAILY 08/10/18 Prednisone 20 mg PO DAILY PRN PRN 08/10/18 Past Medical History (Chronic Problems): Chronic Problems History of ovarian cancer (Chronic) Tobacco use (Chronic) Anxiety and depression (Chronic) GERD (gastroesophageal reflux disease) (Chronic) HTN (hypertension) (Chronic) CAD (coronary artery disease) (Chronic) Surgical History: appendectomy, hysterectomy, - - radical hysterectomy with additional resections for ovarian cancer - *Family History Maternal History Items: Heart Disease Paternal History Items: Heart Disease Lives: Spouse/ Significant Other Smoking Status: Current every day smoker Tobacco Use: Cigarettes Alcohol: None Drugs: None Review of Systems - Review of Systems General: Denies: Fever, Night Sweats, Fatigue Cardiovascular: Reports: Chest Discomfort, Chest Discomfort at Rest, Shortness of Breath, Shortness of Breath at Rest, Peripheral Edema, Syncope. Denies: Orthopnea, PND, Palpitations, Lightheadedness, Dizziness, Near Syncope Respiratory: Reports: Shortness of Breath. Denies: Cough, Sputum Production, Hemoptysis Gastrointestinal: Denies: Hematemesis, Hematochezia, Melena Genitourinary: Denies: Dysuria, Hematuria Skin: Denies: Rash Subjectve: Is a thin 48-year-old white female who appears resting comfortably at the moment in no acute distress. Objective: Vital Signs Temp Pulse Resp BP Pulse Ox 98.3 F 75 16 134/63 H 99 08/11/18 11:26 08/11/18 11:26 08/11/18 11:26 08/11/18 11:26 08/11/18 11:26 Oxygen Delivery Method Room Air Weight: 137 lb 2.04 oz Body Mass Index (BMI) 22.8 Intake and Output for Last 24 Hours 08/09/18 08/10/18 08/11/18 23:59 23:59 23:59 Intake Total 1624 / 1624 1329 / 1329 Output Total 0 / 0 Balance 1624 / 1624 1329 / 1329 General: Awake, Alert, Oriented x 3, Cooperative, No Acute Distress HEENT: Atraumatic, Normocephalic, PERRL, EOMI, Sclera Non Icteric Oral: Moist Mucosa, Dry Mucosa Neck: Supple, Good ROM, No JVD Lungs: Clear to auscultation Cardiovascular: Regular Rhythm, Normal S1, Normal S2, Positive S4 Vascular: No Carotid Bruits Abdomen: Bowel Sounds Present, Soft, Non Tender Extremities: No Cyanosis, No Clubbing, No edema Neurological: No Focal Motor or Sensory Deficit Psych/Mental Status: Appropriate 08/10/18 15:00: Sodium 141, Potassium 4.4, Chloride 108 H, Carbon Dioxide 29.0, Anion Gap 4 L, BUN 7, Creatinine 0.80, Est GFR (MDRD) Af Amer 99, Est GFR (MDRD) Non-Af 82, BUN/Creatinine Ratio 8.7 L, Glucose 90, Calcium 9.4, Troponin I < 0.015 08/10/18 15:00: Magnesium 2.0 08/10/18 18:15: Troponin I < 0.015 08/10/18 21:30: Troponin I < 0.015 08/11/18 05:10: WBC 4.2 L, RBC 4.15 L, Hgb 13.0, Hct 40.7, MCV 98.1, MCH 31.3, MCHC 31.9 L, RDW 13.1, RDW Differential 46.6 H, Plt Count 136 L, MPV 11.3 08/11/18 05:10: Sodium 145, Potassium 4.1, Chloride 114 H, Carbon Dioxide 27.0, Anion Gap 4 L, BUN 11, Creatinine 0.82, Est GFR (MDRD) Af Amer 97, Est GFR (MDRD) Non-Af 80, BUN/Creatinine Ratio 13.5, Glucose 95, Calcium 8.1 L, Total Bilirubin 0.30, Triglycerides 139, Cholesterol 135, LDL Cholesterol 58, VLDL Cholesterol 28, HDL Cholesterol 49 08/11/18 05:10: PT 13.8, INR 1.1, APTT 27.5 Rhythm: Sinus rhythm EKG: Sinus rhythm ECHO: Pending Stress Test: Stress Test Report Date: 08-11-18 Procedure: Pharmacologic stress nuclear imaging study Indications: Chest pain; CAD; cardiac dysrhythmia Consent: Per the patient Procedure: The patient underwent pharmacologic (Regadenoson) evaluation with a peak heart rate of 110 beats per minute (63 %predicted maximal heart rate) and a peak blood pressure of 128/80 mmHg. The baseline ECG demonstrated normal sinus rhythm. The peak pharmacologic ECG demonstrated no obvious ECG changes. There were no cardiac dysrhythmias pretest, during pharmacologic infusion, or recovery. There was no complaint of chest discomfort during pharmacologic infusion or recovery. The examination was discontinued secondary to completion of protocol. Impression: 1. Pharmacologic (Regadenoson) evaluation 2. Peak pharmacologic ECG with no obvious ECG changes. 3. There were no cardiac dysrhythmias pretest, during pharmacologic infusion, or recovery. 4. Nuclear images pending Myocardial perfusion imaging study: Technique: The patient was injected with 12.0 millicuries of technetium 99m Cardiolite and subsequently rest SPECT Cardiolite nuclear imaging was obtained in the horizontal long, vertical long, and short axis views. The patient underwent pharmacologic (Regadenoson) evaluation with a peak heart rate of 110 beats per minute (63 % percent predicted maximal heart rate) and a peak blood pressure of 128/80 mmHg. The patient was injected with 32.5 millicuries of technetium 99m Cardiolite and subsequently stress SPECT Cardiolite nuclear imaging was obtained in the horizontal long, vertical long, and short axis views. A gated Cardiolite study at peak stress was obtained. Interpretation: Rest and stress SPECT Cardiolite nuclear imaging status post realignment, normalization, and attenuation correction demonstrate on the raw image analysis evidence of underlying body motion/artifact during image acquisition and subsequently a small area of diminished tracer uptake in portions of the mid anterior segments without significant change between rest and stress. There is end systolic thickening and brightening. The gated Cardiolite study demonstrates myocardial thickening and inward wall motion. The reported LVEF is 60 %. Impression: 1. Rest and stress SPECT Cardiolite nuclear imaging demonstrate evidence of body motion during image acquisition as well as a small area of diminished tracer uptake in portions of the mid anterior segments without significant change between rest and stress potentially compatible with soft tissue attenuation/artifact, however, an area of previous myocardial injury/infarction cannot necessarily be excluded. There are no myocardial perfusion changes considered diagnostic for associated stress-induced myocardial ischemia. 2. The gated Cardiolite study reports an LVEF of 60 %. Cardiac Cath: Previous report unavailable for review CXR: Preliminary evaluation: No acute cardiopulmonary disease process appreciated: Please see the official report Assessment/Plan 1. Angina pectoris The patient describes symptoms compatible with angina pectoris. She has been undergoing to rule out IL protocol. It has been negative by cardiac enzymes and lack of ECG changes. She is claims to have a history of CAD based on previous diagnostic cardiac catheterization, which is unavailable for review at this time, reportedly demonstrating that she required PCI which she declined at the time. At the present time she will continue medical management as deemed appropriate. Based upon her symptoms, her history, and her other objective findings it does not appear unreasonable for her to consider repeat diagnostic cardiac catheterization revascularization therapy as deemed appropriate. The procedure and risks were discussed with her. She was agreeable to this approach. 2. Ventricular tachycardia She did have an episode of nonsustained wide-complex tachycardia appearing compatible with nonsustained ventricular tachycardia. She appeared to be without obvious symptoms or compromise at the time. At the present time she will continue medical management. This will include reinitiation of beta-cici therapy with advancement of dose as tolerated. She may need other agents as deemed appropriate. In the interim she will continue her noninvasive and invasive evaluation as noted above. 3. Syncope She states she had syncope after her second nitroglycerin tablet. Thus there is concern as to whether this could be nitroglycerin-induced hypotension leading to her syncope. At the same time she states she has had syncope in the past separate from nitroglycerin use. The etiology is unclear. However with her ventricular ectopy and her history of CAD there may be a concern of underlying cardiac dysrhythmia relationship. It is unclear as to whether this is what her previous ultrasound technol was suggesting that she needed further evaluation and care with a pacemaker device . At the present time she will continue to be monitored. She will continue medical management. She will proceed with further evaluation as noted above. 4. CAD Again she states she has a history of CAD previously recommended for PCI which she declined. At the present time she is willing to undergo reevaluation and care as deemed appropriate. Thus she will continue medical management and be considered for further evaluation with repeat diagnostic cardiac catheterization. 5. Hyperlipidemia She will continue lipid-lowering therapy. 6. Hypertension Her blood pressures will be followed. Her medications can be adjusted as needed. Comment: The above was discussed with the patient, her spouse, and the [facility] hospitalist team. This note was generated with [employer] dictation software. It may contain incorrect words, spelling, and punctuation that were not noted in checking the note before signing.
--- NOTE | 2018-08-11 16:18 | NURSING ---
at 1600 charge nurse stopped pt and from attempting to get on the elevator. When questioned pt admitted to planning on going outside for a cigarette. Charge nurse spoke with pt, who then requested to speak with physician. MARGARITA Zamudio and this nurse went to discuss with pt. Pt states she ''has to have a cigarette'' MARGARITA Rosado states she can have a nicotine patch, or gum, pt refused both. Pt was advised that if she left to smoke, she would be d/c'd AMA, and have to go back through ER. After Alonzo left, this nurse spoke with pt. Pt states that she 'needs a cigarette, because she is having an anxiety attack'' Advised pt she has medications on to help with that, discussed pt's options with her. Pt chose to return to room and take Xanax. LUCINDA Stinson
[2018-08-11] MEDS: Clopidogrel Bisulfate 300 MG Tablet PO (17:10)
--- NOTE | 2018-08-11 19:09 | NURSING ---
In room with pt. pt. asked for purse got purse for then she said whole bag after I got purse. stuff was falling out of purse and bag. pens and other stuff.I was trying to put back in bag. which I told her stuff falling out and I was putting back in. I did see pill bottle. I didnt say anything about pills. I called nurse and asked her to come in right away. pt. jumped out of bed started yelling at me about being in bag . I only put stuff in that fell out of bag into bag. nurse came in and pt. was yelling at me about going through her bag.I left room when RN came to room after I told RN what happened.
--- NOTE | 2018-08-11 19:22 | NURSING ---
At approximately 1850 this nurse received phone call from FRANKY Gabi in room 105 requesting that this nurse come right away. Upon entering room, [employer] exited, and pt was standing at TV stand, yelling loudly, that she wanted security called because [employer] was going through her things, specifically picking up a pill bottle. Contents of pill bottle are not medications, but SIM cards. Pt pacing back and forth, crying and yelling, packing up belongings stating ''I want a release form, I want to leave'' Attempted to ask pt to sit down on bed or chair. Security arrived, as well as police. geospatial program management officer Maria Elena, spoke with pt alone in room, after 5-10 minute this nurse returned to room. Pt states that she will stay, on the condition that FRANKY Ashley does not enter room. LUCINDA Ramires and this nurse with Maria Elena gathered pt's belongings and put valuables/jewelry in envelope to be kept in safe. Incident resolved, heart monitored reapplied and pt resting in bed. LUCINDA Stinson
[2018-08-11] MEDS: predniSONE 20 MG Tablet 60 MG PO (22:29)
[2018-08-11] MEDS: Atorvastatin Calcium 80 MG Tablet PO (22:29)
[2018-08-11] MEDS: lamoTRIgine 150 MG Tablet 300 MG PO (22:29)
[2018-08-11] MEDS: Famotidine 20 MG Tablet PO (22:30)
[2018-08-11] MEDS: Metoprolol Tartrate 25 MG Tablet PO (22:31)
[2018-08-11] MEDS: DiphenhydrAMINE 25 MG Capsule 50 MG PO (22:31)
[2018-08-11] MEDS: Zolpidem Tartrate 5 MG Tablet 10 MG PO (22:32)
[2018-08-12] VITALS (13 sets, daily range): BP systolic 92–195; BP diastolic 58–112; PULSE 60–101; RESP 12–18; TEMP 36.7–36.9; O2SAT 95–99
[2018-08-12] MEDS: Acyclovir 200 MG Capsule 400 MG PO (05:52)
[2018-08-12] MEDS: Clopidogrel Bisulfate 75 MG Tablet PO (05:52)
[2018-08-12] MEDS: Famotidine 20 MG Tablet PO (05:52)
[2018-08-12] MEDS: DiphenhydrAMINE 25 MG Capsule 50 MG PO (05:53)
[2018-08-12] MEDS: predniSONE 20 MG Tablet 60 MG PO (05:53)
--- NOTE | 2018-08-12 05:55 | EKG12_ITS ---
Test Reason : Blood Pressure : / mmHG Vent. Rate : 065 BPM Atrial Rate : 065 BPM P-R Int : 166 ms QRS Dur : 090 ms QT Int : 422 ms P-R-T Axes : 075 023 026 degrees QTc Int : 438 ms Normal sinus rhythm Normal ECG When compared with ECG of 11-AUG-2018 05:29, MANUAL COMPARISON REQUIRED, DATA IS UNCONFIRMED Confirmed by NETO SCHMITT, MARCO ANTONIO ([id number]), avid editor CATHERINE MUÑOZ ([id number]) on 08/24/2018 2:57:16 PM Referred By: Confirmed By:MARCO ANTONIO DUQUE MD
[2018-08-12] MEDS: oxyCODONE 5 MG Tablet PO ×2 (06:04→12:06)
[2018-08-12 06:09] LABS: Partial Thromboplast Time 28.6 Seconds (24.1-36.2)
[2018-08-12 06:12] LABS: International Normalized Ratio 1.1; Prothrombin Time (Protime)PT. 13.7 SECONDS (11.7-14.9)
[2018-08-12 06:21] LABS: Absolute Lymphocyte Count 0.57 X10^3/ul (0.83-4.51); Absolute Neutrophil Count 5.3 X10^3/uL (2.0-7.7); Basophil# 0.01 X10^3/uL; Basophil% 0.2 % (0-1); Differential Indicated SCAN CRITERIA MET; Eosinophil# 0.01 X10^3/uL; Eosinophils% 0.2 % (0-5); Hemoglobin 13.8 g/dl (12.0-15.0); Lymphocyte # 0.57 X10^3/ul (4.0); Lymphocyte % 9.7 % (19-41); Mean Corp Hgb Conc 32.9 g/gl (32-36); Mean Corpuscular Hgb 32.2 pg (27.0-32.0); Mean Corpuscular Volume 97.9 fL (81-99); Mean Platelet Vol. 11.5 fl (6.2-12.0); Monocyte# 0.04 X10^3/uL; Monocyte% 0.7 % (0-10); Neutrophil # 5.26 X10^3/uL (2.7-7.7); POSITIVE COUNT NO; POSITIVE DIFFERENTIAL YES; POSITIVE MORPHOLOGY NO; Platelet Count 162 K/mm3 (150-450); RBC Distribution Width SD 45.9 fl (35.1-43.9); Red Blood Count 4.29 M/mm3 (4.2-5.4); White Blood Count 5.9 K/mm3 (4.4-11.0)
[2018-08-12 06:26] LABS: Anion Gap 1 (5-15); BUN 11 mg/dL (7-18); BUN/Creat Ratio 11.5 RATIO (10-20); Chloride 112 mmol/L (98-107); Creatinine, Serum 0.95 mg/dL (0.55-1.02); EST Glomerular Filtration Rate 67 mL/min (>60); Est Glom Filt Rate - Afr Amer 81 mL/min (>60); Estimated Creatinine Clearance 65.88 ml/min; Glucose 152 mg/dL (74-106); Potassium 4.1 mmol/L (3.5-5.1); Sodium Level 141 mmol/L (136-145)
[2018-08-12] MEDS: 0.9% Normal Saline 1,000 ML 15 ML IV (07:18)
--- NOTE | 2018-08-12 07:56 | CL.D_ITS ---
Patient Name: MARIA INES BARVO Study Date: 08/12/2018 Performing: Wm Floyd MD Ht: 64.96 inches 165 cm : 1970 Wt: 136.69 lbs 62 kg Age: 48 Gender: female BSA: 1.68 PROCEDURE(S) PERFORMED [id number] CLINICAL PROFILE AND INDICATIONS Indications: Suspected CAD, Cardiac Arrythmia Heart Failure: None Stress/Imaging Date: 08/11/2018Stress Test with SPECT MPI: Indeterminant Angina Classification Anginal Classification w/in 2 Weeks: CCS IV CAD Presentations: Unstable angina. CONCLUSIONS Elevated Left Ventricular End Diastolic Pressure Normal LV size, wall motion,and systolic function LVEF: by LV gram 65 % Normal coronary arteries RECOMMENDATIONS Risk factor modification Medical therapy DESCRIPTION OF PROCEDURE The patient arrived to the procedure lab. The risks and benefits of the procedure as well as a full d escription of our services here and current unavailability of surgical backup were fully explained to the patient and/or their significant other prior to the catheterization. The Timeout was completed, verifying the correct patient and procedure. The patient's procedural site was prepped and draped in the usual fashion. Local anesthetic was given subcutaneously to right groin region with Lidocaine 2%. Using a modified Seldinger technique, arterial access was obtained via the right femoral artery, a 4 Fr sheath was inserted Left Coronary Artery selective angiography was performed in multiple views us ing a 4 Fr. JL5 catheter. Right Coronary Artery selective angiography was then performed in multiple views using a 4 Fr. 3DRC catheter. Left Ventriculography was performed in SYRIAC projection using a 4 Fr . Pigtail catheter. LV to AO pullback pressures were then recorded.The arterial sheath was pulled and manual compression applied until hemostasis is achieved. CORONARY ANGIOGRAPHY DOMINANCE: Right Dominant LEFT HEART ASSESSMENT Left Ventricular Ejection Fraction: by LV Gram 65 % Normal LV wall motion Elevated Left Ventricular End Diastolic Pressure LVEDP: 25 mmHg LEFT MAIN: Angiographically normal LEFT ANTERIOR DESCENDING ARTERY: Angiographically normal CIRCUMFLEX ARTERY: Angiographically normal RAMUS: Angiographically normal RIGHT CORONARY ARTERY: Angiographically normal VALVE FINDINGS: Normal Aortic Valve function Normal Mitral Valve function AORTIC ROOT: Angiographically normal COMPLICATIONS No Complications PROCEDURE MEDICATIONS Versed 1 mg IV Oxygen: 2 L/min via nasal cannula Solu-medrol 125 mg IV 08/12/2018 07:29:11 SUMMARY OF HEMODYNAMIC DATA Time AIR REST ECG 07:19:40 AO 128/84 (105) SA 07:34:09 LV 145/7, 35 07:40:06 LV 144/0, 25 07:40:12 LV 147/0, 26 07:40:58 LVp 153/-1, 26 07:41:03 AOp 162/98 (125) 07:41:08 Signed By Wm Floyd MD On 08/12/2018 07:55:00 Wm Floyd MD
[2018-08-12] MEDS: Lisinopril 5 MG Tablet PO (10:11)
[2018-08-12] MEDS: Metoprolol Tartrate 25 MG Tablet PO (10:11)
[2018-08-12] MEDS: 0.9% Normal Saline 1,000 ML 75 ML IV (10:11)
[2018-08-12] MEDS: Pantoprazole Sodium 40 MG Tablet PO (10:12)
[2018-08-12] MEDS: Lidocaine 5% Patch 1 PATCH TOPICAL (10:12)
[2018-08-12] MEDS: ALPRAZolam 0.5 MG Tablet 1.5 MG PO (10:16)
--- NOTE | 2018-08-12 10:25 | CASEMGMT ---
Addendum entered by Renee Quijano 08/12/18 12:07: Patient's daughter will be picking her up at discharge. Renee VENEGAS Original Note: SW spoke with patient this am as per RN she is upset and crying as her boyfriend is leaving her and kicking her out. SW met with patient and she was crying telling SW what happened. SW listened and provided emotional support. Patient will need transportation home. SW will await d/c. Renee VENEGAS
--- NOTE | 2018-08-12 10:34 | DCINST_ITS ---
- Discharge Diagnoses Current Active Problems: Current Active and Chronic Problems Chest pain (Acute) HTN (hypertension) (Chronic) HLD (hyperlipidemia) (Acute) CAD (coronary artery disease) (Chronic) Angina pectoris (Acute) Ventricular tachycardia (paroxysmal) (Acute) CAD (coronary artery disease) (Acute) Syncope (Acute) You will use the following diet at home:: Cardiac Your food should be the consistency of: Regular Your liquids should be the consistency of: Regular/Thin Discharge Activity: Return to Normal Activity Allergies/Adverse Reactions: Allergies acetaminophen [From Darvocet-N] Allergy (Verified 08/10/18 13:52) Other codeine Allergy (Verified 08/10/18 13:52) Hives Iodinated Contrast- Oral and IV Dye [CT] Allergy (Verified 08/10/18 13:52) Rash ondansetron [From Zofran] Allergy (Verified 08/10/18 13:52) Shortness of breath propoxyphene [From Darvocet-N] Allergy (Verified 08/10/18 13:52) Other aspirin Adverse Reaction (Verified 08/10/18 13:52) Other BLISTER ibuprofen [From Motrin] Adverse Reaction (Verified 08/10/18 13:52) Other BLISTER levofloxacin [From Levaquin] Adverse Reaction (Verified 08/10/18 13:52) Other BLISTER NSAIDS (Non-Steroidal Anti-Inflamma Adverse Reaction (Verified 08/10/18 13:52) Other BLISTER Medications to take at Discharge ALPRAZolam [Xanax] 1.5 mg PO TID PRN PRN 04/07/18 Zolpidem Tartrate [Ambien] 10 mg PO QHS PRN PRN 04/07/18 proMETHazine tablet [Phenergan tablet] 25 mg PO Q6H PRN PRN #12 tab 07/25/18 Acetaminophen [Tylenol] 500 - 1,000 mg PO Q6H PRN PRN 08/10/18 Albuterol Inhaler [Ventolin Hfa] 1 - 2 puff INHALATION Q6H PRN PRN 08/10/18 Biotin 2,500 mcg PO DAILY 08/10/18 Dicyclomine HCl [Bentyl] 10 mg PO Q6H PRN 08/10/18 Lamotrigine 300 mg PO QHS 08/10/18 Pantoprazole Sodium [Protonix] 40 mg PO DAILY 08/10/18 Acyclovir [Zovirax] 400 mg PO TID #12 capsule 08/12/18 Metoprolol Tartrate [Lopressor (beta cici)] 25 mg PO BID #60 tablet 08/12/18 The following prescriptions were given: Acyclovir [Zovirax] 400 mg PO TID #12 capsule Metoprolol Tartrate [Lopressor (beta cici)] 25 mg PO BID #60 tablet Primary Care Physician: Care Physician,No Primary [Primary Care Provider] - Please follow up with your Primary Care Physician in: 1-2 weeks Test Results: Test results from this visit will be discussed in further detail at your follow- up appointment, if applicable. Please Follow Up With: Your own manager sign When: 2 weeks Proposed Discharge Date: 08/12/18
--- NOTE | 2018-08-12 12:24 | NURSING ---
1205- pt walked halls with this RN. cath site c/d/i
--- NOTE | 2018-08-12 14:06 | DS.PCM_ITS ---
Discharge Date and Diagnosis Date of Admission: 08/10/18 Date of Discharge: 08/12/18 - Primary Discharge Diagnosis Chest pain - musculoskeletal Nonsustained ventricular tachycardia Shoulder sprain Stage 3 uterine cancer HTN HLD Medication noncompliance Drug abuse Thrombocytopenia Nicotine abuse Seizure disorder Anxiety and depression Oral herpes - Secondary Discharge Diagnosis Chronic Problems History of ovarian cancer (Chronic) Tobacco use (Chronic) Anxiety and depression (Chronic) GERD (gastroesophageal reflux disease) (Chronic) HTN (hypertension) (Chronic) CAD (coronary artery disease) (Chronic) Hospital Course and Treatment Imaging Results: RAD/Chest 1 View (Portable) IMPRESSION: Decreased bronchovascular markings suggestive of emphysematous changes. No acute abnormality is seen. Stress test: Impression: 1. Rest and stress SPECT Cardiolite nuclear imaging demonstrate evidence of body motion during image acquisition as well as a small area of diminished tracer uptake in portions of the mid anterior segments without significant change between rest and stress potentially compatible with soft tissue attenuation/artifact, however, an area of previous myocardial injury/infarction cannot necessarily be excluded. There are no myocardial perfusion changes considered diagnostic for associated stress-induced myocardial ischemia. 2. The gated Cardiolite study reports an LVEF of 60 %. Left Heart Cath CONCLUSIONS Elevated Left Ventricular End Diastolic Pressure Normal LV size, wall motion,and systolic function LVEF: by LV gram 65 % Normal coronary arteries RECOMMENDATIONS Risk factor modification Medical therapy Consults: Cardiology - [facility] Operations: None Procedures: Cardiac catheterization, Stress test Summary of Care Provided: Hospital Course: The patient is a 48 year old F with a past medical history of stage III uterine cancer, unclear if this is in remission, supposedly a history of coronary artery disease, history of nicotine abuse, history of drug abuse, anxiety and depression, medication noncompliance, hypertension and hyperlipidemia not taking her home medications, COPD and emphysema, who presented to the emergency room with complaints of chest pain. In the ER she had a negative troponin, negative chest x-ray, negative EKG. She stated in the emergency room that she had had a heart cath about 1 year prior at [facility] and that she was told at that time that she needed stents placed but they were never done. We could not obtain records to indicate that she had had a heart cath. She also had not been taking any of her home medications stating that she had moved recently and did not have a chance to get anyone to fill them. She also had injured her shoulder during her move, and her pain was radiating from her shoulder through her chest. She was admitted to the PCU for chest pain work-up. On telemetry she had an episode of nonsustained V. tach. She was restarted on metoprolol which she supposedly was supposed to be taking as an outpatient. Cardiology was consulted. Stress test was performed and was negative. Given her questionable history and ventricular tachycardia it was felt that she should undergo a heart catheterization. Initially the patient was not agreeable and almost left AMA, she was convinced to stay. The following morning she underwent a heart catheterization which showed essentially normal coronaries. She will be maintained on metoprolol for ventricular tachycardia. No interventions are advised at this time. She also complained of an outbreak of oral herpes while she was here and she was started on 5 days of acyclovir for this. Her emotions were highly labile while she was here, and she demonstrated drug-seeking, and unusual behaviors. She was very pushy to receive IV morphine. She was intermittently crying throughout the stay. She wanted to leave AMA to smoke. She lied about using marijuana. She accused staff of stealing from her and the police had to be called, who also had to convince her a second time not to leave AMA. We advised her to follow-up with a PCP in 1 to 2 weeks, and to follow-up with her own science specialist in 2 to 3 weeks. She was discharged home in stable condition. This patient was seen by Varghese Rosado PA-C under the supervision of Dr. Vazquez. [] - Physical Exam General: Alert, Oriented x3, Cooperative HEENT: Atraumatic, PERRLA, EOMI, Normocephalic Neck: Supple, No JVD, Negative Carotid Bruits Lungs: Clear to auscultation, Normal air movement Cardiovascular: Regular rate, No murmurs Abdomen: Bowel Sounds Present, Soft, Non Tender Extremities: No edema, Capillary Refill Less than 3 Seconds Skin: No rashes, No breakdown Musculoskeletal: No Tenderness to Palpation of Joints or Extremities Neurological: Cranial nerves II-XII grossly intact Psych/Mental Status: Normal Affect, Appropriate, Alert and oriented to time, place, person, mood and affect Vital Signs Temp Pulse Resp BP Pulse Ox 98.3 F 76 18 142/59 H 98 08/12/18 09:30 05/22/19 12:00 08/12/18 12:00 08/12/18 12:00 08/12/18 12:00 Oxygen Delivery Method Room Air Weight: 137 lb 2.04 oz Body Mass Index (BMI) 22.8 Intake and Output for Last 24 Hours 08/10/18 08/11/18 08/12/18 23:59 23:59 23:59 Intake Total 1624 / 1624 2159 / 2159 780 / 780 Output Total 0 / 0 2 / 2 Balance 1624 / 1624 2157 / 2157 780 / 780 Laboratory Tests Past 24 Hrs 08/12/18 08/12/18 08/12/18 05:35 05:35 05:35 WBC 5.9 RBC 4.29 Hgb 13.8 Hct 42.0 MCV 97.9 MCH 32.2 H MCHC 32.9 RDW 13.0 RDW Differential 45.9 H Plt Count 162 MPV 11.5 Immature Gran % (Auto) 0.200 Neut % (Auto) 89.0 H Lymph % (Auto) 9.7 L [place] % (Auto) 0.7 Eos % (Auto) 0.2 Baso % (Auto) 0.2 Absolute Neuts (auto) 5.3 Absolute Lymphs (auto) 0.57 L Total Counted Not Reportable PT 13.7 INR 1.1 APTT 28.6 Sodium 141 Potassium 4.1 Chloride 112 H Carbon Dioxide 28.0 Anion Gap 1 L BUN 11 Creatinine 0.95 Estim Creat Clear Calc 65.88 Est GFR (MDRD) Af Amer 81 Est GFR (MDRD) Non-Af 67 BUN/Creatinine Ratio 11.5 Glucose 152 H Calcium 9.0 Discharge Diet: Low fat/ Low Cholesterol Discharge Activity: Return to Normal Activity Home Medications: Medications to take at Discharge ALPRAZolam [Xanax] 1.5 mg PO TID PRN PRN 04/07/18 Zolpidem Tartrate [Ambien] 10 mg PO QHS PRN PRN 04/07/18 proMETHazine tablet [Phenergan tablet] 25 mg PO Q6H PRN PRN #12 tab 07/25/18 Acetaminophen [Tylenol] 500 - 1,000 mg PO Q6H PRN PRN 08/10/18 Albuterol Inhaler [Ventolin Hfa] 1 - 2 puff INHALATION Q6H PRN PRN 08/10/18 Biotin 2,500 mcg PO DAILY 08/10/18 Dicyclomine HCl [Bentyl] 10 mg PO Q6H PRN 08/10/18 Lamotrigine 300 mg PO QHS 08/10/18 Pantoprazole Sodium [Protonix] 40 mg PO DAILY 08/10/18 Acyclovir [Zovirax] 400 mg PO TID #12 capsule 08/12/18 Metoprolol Tartrate [Lopressor (beta cici)] 25 mg PO BID #60 tablet 08/12/18 Following Prescrptions Were Given to Patient: Acyclovir [Zovirax] 400 mg PO TID #12 capsule Metoprolol Tartrate [Lopressor (beta cici)] 25 mg PO BID #60 tablet Primary Care Physician: Care Physician,No Primary [Primary Care Provider] - Please follow up with your Primary Care Physician in: 1-2 weeks Please Follow Up With: Your own science specialist When: 2 weeks Disposition: Home Minutes spent on discharge:: 35 Patient Condition:: Stable Medical Necessity - Tobacco Use Smoking Status: Current every day smoker Tobacco Use: Cigarettes Meaningful Use Info Meaningful Use Diagnoses (Choose all that apply): None applicable
--- NOTE | 2018-08-12 17:56 | PCM.PN.CARD ---
Subjectve: The patient was evaluated earlier this day. She had undergone diagnostic cardiac catheterization without any obvious adverse event. She had no new acute symptoms. Objective: Vital Signs Temp Pulse Resp BP Pulse Ox 98.3 F 76 18 142/59 H 98 08/12/18 09:30 08/12/18 12:00 08/12/18 12:00 08/12/18 12:00 08/12/18 12:00 Oxygen Delivery Method Room Air Weight: 137 lb 2.04 oz Body Mass Index (BMI) 22.8 Intake and Output for Last 24 Hours 08/10/18 08/11/18 08/12/18 23:59 23:59 23:59 Intake Total 1624 / 1624 2159 / 2159 780 / 780 Output Total 0 / 0 2 / 2 Balance 1624 / 1624 215 / 2157 780 / 780 General: Awake, Alert, Oriented x 3, Cooperative, No Acute Distress HEENT: Atraumatic, Normocephalic, PERRL, EOMI, Sclera Non Icteric Oral: Moist Mucosa Neck: Supple, Good ROM, No JVD Lungs: Clear to auscultation Cardiovascular: Regular Rhythm, Normal S1, Normal S2 Vascular: Normal Femoral Pulses Abdomen: Bowel Sounds Present, Soft, Non Tender Extremities: No edema 08/12/18 05:35: WBC 5.9, RBC 4.29, Hgb 13.8, Hct 42.0, MCV 97.9, MCH 32.2 H, MCHC 32.9, RDW 13.0, RDW Differential 45.9 H, Plt Count 162, MPV 11.5, Immature Gran % (Auto) 0.200, Neut % (Auto) 89.0 H, Lymph % (Auto) 9.7 L, [place] % (Auto) 0.7, Eos % (Auto) 0.2, Baso % (Auto) 0.2, Absolute Neuts (auto) 5.3, Total Counted Not Reportable 08/12/18 05:35: PT 13.7, INR 1.1, APTT 28.6 08/12/18 05:35: Sodium 141, Potassium 4.1, Chloride 112 H, Carbon Dioxide 28.0, Anion Gap 1 L, BUN 11, Creatinine 0.95, Est GFR (MDRD) Af Amer 81, Est GFR (MDRD) Non-Af 67, BUN/Creatinine Ratio 11.5, Glucose 152 H, Calcium 9.0 Rhythm: Sinus rhythm ECHO: Interpretation Summary Left ventricular systolic function is normal. The estimated ejection fraction is 60 %. Trivial mitral valve insufficiency. Trivial tricuspid valve insufficiency. No evidence for diastolic dysfunction. Cardiac Cath: CORONARY ANGIOGRAPHY DOMINANCE: Right Dominant LEFT HEART ASSESSMENT Left Ventricular Ejection Fraction: by LV Gram 65 % Normal LV wall motion Elevated Left Ventricular End Diastolic Pressure LVEDP: 25 mmHg LEFT MAIN: Angiographically normal LEFT ANTERIOR DESCENDING ARTERY: Angiographically normal CIRCUMFLEX ARTERY: Angiographically normal RAMUS: Angiographically normal RIGHT CORONARY ARTERY: Angiographically normal VALVE FINDINGS: Normal Aortic Valve function Normal Mitral Valve function AORTIC ROOT: Angiographically normal Medical Necessity - Tobacco Use Smoking Status: Current every day smoker Tobacco Use: Cigarettes Assessment/Plan 1. Angina pectoris The patient has undergone further noninvasive and invasive evaluation of her symptoms concerning for angina pectoris and her previous cardiovascular history reportedly demonstrating cardiac catheterization findings demonstrating CAD requiring PCI procedures-which she declined at the time. Based upon her ongoing evaluation her overall left ventricular systolic function appears to be preserved. Her coronary angiography appear to demonstrate angiographically normal-appearing coronary arteries. Thus it appears her chest discomfort is not related to underlying classic atherosclerotic appearing CAD. She should continue non-CAD evaluation of her chest discomfort as deemed appropriate. 2. Ventricular tachycardia She did have an episode of nonsustained wide-complex tachycardia appearing compatible with nonsustained ventricular tachycardia. She appeared to be without obvious symptoms or compromise at the time. He has undergone further evaluation as noted above. She was not found to have underlying CAD or left ventricular systolic dysfunction. She has had no other cardiac dysrhythmias reported. It is recommended she continue medical management with her beta-blockers. She should have follow-up with her primary fire officer. Depending upon her clinical course and findings she may or may not need to be referred to electrophysiology for further evaluation and care. 3. Syncope She states she had syncope after her second nitroglycerin tablet. Thus there is concern as to whether this could be nitroglycerin-induced hypotension leading to her syncope. Again she is undergone noninvasive and invasive evaluation as noted above. Based upon these findings her episode may have been related to nitroglycerin-induced hypotension. At the present time she will continue medical management and follow-up as deemed appropriate with her primary care physician and her primary fire officer. 4. CAD Her cardiac catheterization this day demonstrated the appearance of angiographically normal-appearing coronary arteries. Thus it is unclear as to her history of having CAD requiring PCI. At the present time she should continue risk factor evaluation care as deemed appropriate. 5. Hyperlipidemia She will continue lipid-lowering therapy. 6. Hypertension Her blood pressures will be followed. Her medications can be adjusted as needed. Comment: The above was discussed with the patient and the [facility] hospitalist team. This note was generated with [employer] dictation software. It may contain incorrect words, spelling, and punctuation that were not noted in checking the note before signing.
--- NOTE | 2018-08-12 18:01 | PN.CARD_ITS ---
Subjectve: The patient was evaluated earlier this day. She had undergone diagnostic cardiac catheterization without any obvious adverse event. She had no new acute symptoms. Objective: Vital Signs Temp Pulse Resp BP Pulse Ox 98.3 F 76 18 142/59 H 98 08/12/18 09:30 08/12/18 12:00 08/12/18 12:00 08/12/18 12:00 08/12/18 12:00 Oxygen Delivery Method Room Air Weight: 137 lb 2.04 oz Body Mass Index (BMI) 22.8 Intake and Output for Last 24 Hours 08/10/18 08/11/18 08/12/18 23:59 23:59 23:59 Intake Total 1624 / 1624 2159 / 2159 780 / 780 Output Total 0 / 0 2 / 2 Balance 1624 / 1624 215 / 2157 780 / 780 General: Awake, Alert, Oriented x 3, Cooperative, No Acute Distress HEENT: Atraumatic, Normocephalic, PERRL, EOMI, Sclera Non Icteric Oral: Moist Mucosa Neck: Supple, Good ROM, No JVD Lungs: Clear to auscultation Cardiovascular: Regular Rhythm, Normal S1, Normal S2 Vascular: Normal Femoral Pulses Abdomen: Bowel Sounds Present, Soft, Non Tender Extremities: No edema 08/12/18 05:35: WBC 5.9, RBC 4.29, Hgb 13.8, Hct 42.0, MCV 97.9, MCH 32.2 H, MCHC 32.9, RDW 13.0, RDW Differential 45.9 H, Plt Count 162, MPV 11.5, Immature Gran % (Auto) 0.200, Neut % (Auto) 89.0 H, Lymph % (Auto) 9.7 L, [place] % (Auto) 0.7, Eos % (Auto) 0.2, Baso % (Auto) 0.2, Absolute Neuts (auto) 5.3, Total Counted Not Reportable 08/12/18 05:35: PT 13.7, INR 1.1, APTT 28.6 08/12/18 05:35: Sodium 141, Potassium 4.1, Chloride 112 H, Carbon Dioxide 28.0, Anion Gap 1 L, BUN 11, Creatinine 0.95, Est GFR (MDRD) Af Amer 81, Est GFR (MDRD) Non-Af 67, BUN/Creatinine Ratio 11.5, Glucose 152 H, Calcium 9.0 Rhythm: Sinus rhythm ECHO: Interpretation Summary Left ventricular systolic function is normal. The estimated ejection fraction is 60 %. Trivial mitral valve insufficiency. Trivial tricuspid valve insufficiency. No evidence for diastolic dysfunction. Cardiac Cath: CORONARY ANGIOGRAPHY DOMINANCE: Right Dominant LEFT HEART ASSESSMENT Left Ventricular Ejection Fraction: by LV Gram 65 % Normal LV wall motion Elevated Left Ventricular End Diastolic Pressure LVEDP: 25 mmHg LEFT MAIN: Angiographically normal LEFT ANTERIOR DESCENDING ARTERY: Angiographically normal CIRCUMFLEX ARTERY: Angiographically normal RAMUS: Angiographically normal RIGHT CORONARY ARTERY: Angiographically normal VALVE FINDINGS: Normal Aortic Valve function Normal Mitral Valve function AORTIC ROOT: Angiographically normal Medical Necessity - Tobacco Use Smoking Status: Current every day smoker Tobacco Use: Cigarettes Assessment/Plan 1. Angina pectoris The patient has undergone further noninvasive and invasive evaluation of her symptoms concerning for angina pectoris and her previous cardiovascular history reportedly demonstrating cardiac catheterization findings demonstrating CAD requiring PCI procedures-which she declined at the time. Based upon her ongoing evaluation her overall left ventricular systolic function appears to be preserved. Her coronary angiography appear to demonstrate angiographically normal-appearing coronary arteries. Thus it appears her chest discomfort is not related to underlying classic atherosclerotic appearing CAD. She should continue non-CAD evaluation of her chest discomfort as deemed appropriate. 2. Ventricular tachycardia She did have an episode of nonsustained wide-complex tachycardia appearing compatible with nonsustained ventricular tachycardia. She appeared to be without obvious symptoms or compromise at the time. He has undergone further evaluation as noted above. She was not found to have underlying CAD or left ventricular systolic dysfunction. She has had no other cardiac dysrhythmias reported. It is recommended she continue medical management with her beta-blockers. She should have follow-up with her primary head of biology. Depending upon her clinical course and findings she may or may not need to be referred to electrophysiology for further evaluation and care. 3. Syncope She states she had syncope after her second nitroglycerin tablet. Thus there is concern as to whether this could be nitroglycerin-induced hypotension leading to her syncope. Again she is undergone noninvasive and invasive evaluation as noted above. Based upon these findings her episode may have been related to nitroglycerin-ind uced hypotension. At the present time she will continue medical management and follow-up as deemed appropriate with her primary care physician and her primary head of biology. 4. CAD Her cardiac catheterization this day demonstrated the appearance of angiographically normal-appearing coronary arteries. Thus it is unclear as to her history of having CAD requiring PCI. At the present time she should continue risk factor evaluation care as deemed appropriate. 5. Hyperlipidemia She will continue lipid-lowering therapy. 6. Hypertension Her blood pressures will be followed. Her medications can be adjusted as needed. Comment: The above was discussed with the patient and the [facility] hospitalist team. This note was generated with [employer] dictation software. It may contain incorrect words, spelling, and punctuation that were not noted in checking the note before signing.
== END 2018-08-12 10:33 | disposition home or self-care (01) ==
LOC: ED 14:43 → PCU 16:18
PROVIDERS: Internal Medicine Cardiovascular Disease; Admitting Provider Family Medicine; Emergency Provider Emergency Medicine; Visit Provider Family Medicine
DX: R07.89 Other chest pain (principal); I10 Essential (primary) hypertension; E78.5 Hyperlipidemia, unspecified; J44.9 Chronic obstructive pulmonary disease, unspecified; K21.9 Gastro-esophageal reflux disease without esophagitis; Z85.43 Personal history of malignant neoplasm of ovary; Z79.899 Other long term (current) drug therapy; F41.9 Anxiety disorder, unspecified; F32.9 Major depressive disorder, single episode, unspecified; G40.909 Epilepsy, unspecified, not intractable, without status epilepticus; F17.210 Nicotine dependence, cigarettes, uncomplicated; I25.10 Atherosclerotic heart disease of native coronary artery without angina pectoris; Z92.21 Personal history of antineoplastic chemotherapy; C55 Malignant neoplasm of uterus, part unspecified; D69.6 Thrombocytopenia, unspecified; B00.89 Other herpesviral infection; R55 Syncope and collapse
CPT/HCPCS: 36415; 71045; 78452; 80048; 80053; 80061; 80307; 83735; 84484; 85025; 85027; 85610; 85730; 93005; 93017; 93306; 93458; 94640; 96361; 96374; 96375; 96376; 97802; 99152; 99153; 99218; 99285; 99406; A9500; J7030; A4216; C1769; C1894; G0378; J2785; Q9967

== ENCOUNTER 2019-03-25 11:03 | Emergency (ER) | payer MEDICAID, SELFPAY ==
[2018-08-10 16:58] VITALS: BMI 22.8
[2019-03-25 11:05] VITALS: BP 155/89; PULSE 74; RESP 16; TEMP 36.9; O2SAT 98; BMI 24.5
--- NOTE | 2019-03-25 12:03 | ED.VISSUMM ---
- ER Visit Summary Date of Service: 03/25/19 Chief Complaint: Abdominal pain History of Present Illness: The patient is a 49 F presenting with abdominal pain. This started approximately 1 week ago. She was admitted to [facility] from 03/20/2019 to 03/24/2019. She states during that admission she was diagnosed with pancreatitis and a blocked pancreatic duct. She was advised that she will need an ERCP. She declined transfer at that time and was scheduled for an outpatient ERCP to be performed tomorrow at [facility]. She states she continues to have pain therefore presented back to the emergency department today. She denies fever. Denies other complaints. Physical Examination: Vitals are stable. Patient is afebrile. Alert no acute distress. HEENT exam is unremarkable. Neck is supple. Lungs are clear and equal bilaterally. Heart is regular rate and rhythm. Abdomen is soft epigastric tenderness, no rebound or guarding Extremities are unremarkable. Skin is warm and dry. No focal neurologic deficit. Remainder of exam is unremarkable. Emergency Department Course and Treatment: Patient was given morphine, Phenergan IV. CBC, chemistries unremarkable. Liver lipase are normal. She continues to have pain and was given Dilaudid IV. CT abdomen pelvis shows peribronchovascular right lower lobe nodule versus simply confluence of vessels. This finding appears stable. Bibasilar dependent atelectasis. Status post appendectomy. No evident obstruction. No free fluid. No free air. Atherosclerotic peripheral vascular disease. Large quantity of retained fecal material throughout the colon. Diverticulosis without CT evidence of diverticulitis. Technical quality: Limited evaluation of GI tract without oral contrast. On reevaluation, patient is resting comfortably. She was advised of the CT findings. She declined prescription for MiraLAX. She will take Bentyl and Phenergan at home. She is strongly advised to keep her appointment tomorrow morning for ERCP. She is advised to return to the ED for worsening complaints. Disposition: Discharge home Impression: Abdominal pain This note was generated with [employer] dictation software. It may contain incorrect words, spelling, and punctuation that were not noted in review of the chart prior to signing ED Disposition - Plan for ED Patient: Instructions: ABDOMINAL PAIN, Unknown Cause, (Female) Referrals: Care Physician,No Primary [Primary Care Provider] -
[2019-03-25 12:24] LABS: Absolute Lymphocyte Count 1.34 X10^3/uL (0.83-4.51); Absolute Neutrophil Count 3.6 X10^3/uL (2.0-7.7); Basophil# 0.03 X10^3/uL; Basophil% 0.6 % (0-1); Eosinophil# 0.11 X10^3/uL; Hematocrit 42.9 % (37-47); Hemoglobin 14.2 g/dL (12.0-15.0); Lymphocyte # 1.34 X10^3/ul (4.0); Lymphocyte % 24.6 % (19-41); Mean Corp Hgb Conc 33.1 g/dL (32-36); Mean Corpuscular Hgb 32.3 pg (27.0-32.0); Mean Corpuscular Volume 97.5 fL (81-99); Mean Platelet Vol. 10.8 fl (6.2-12.0); Monocyte# 0.35 X10^3/uL; Monocyte% 6.4 % (0-10); NRBC Flagged by Analyzer 0 % (0-5); Neutrophil % 66.2 % (47-70); Platelet Count 198 K/mm3 (150-450); RBC Distribution Width CV 11.9 % (11.6-14.6); RBC Distribution Width SD 43.1 fl (35.1-43.9); White Blood Count 5.4 K/mm3 (4.4-11.0)
[2019-03-25] MEDS: proMETHazine 25 MG/ML Syringe 6.25 MG IV (12:28)
[2019-03-25] MEDS: 0.9% Normal Saline 1,000 ML 1000 ML IV (12:28)
[2019-03-25] MEDS: Morphine 4 MG/ML Syringe IV (12:28)
[2019-03-25 12:39] LABS: ALB/GLOB Ratio 0.9 RATIO (0.9-2.4); AST(SGOT) 19 U/L (15-37); Alanine Aminotransfer ALT/SGPT 20 U/L (13-56); Albumin, Serum 3.6 g/dL (3.2-5.0); Alkaline Phosphatase 90 U/L (45-117); Anion Gap 2 (5-15); BUN 13 mg/dL (7-18); BUN/Creat Ratio 15.9 RATIO (10-20); Calcium,Total 9.2 mg/dL (8.5-10.1); Chloride 108 mmol/L (98-107); Creatinine, Serum 0.82 mg/dL (0.55-1.02); EST Glomerular Filtration Rate 80 mL/min (>60); Est Glom Filt Rate - Afr Amer 96 mL/min (>60); Glucose 78 mg/dL (74-106); Lipase 316 U/L (73-393); Potassium 4.2 mmol/L (3.5-5.1); Protein, Total 7.6 g/dL (6.4-8.2); Sodium Level 142 mmol/L (136-145)
--- NOTE | 2019-03-25 13:25 | CT_ITS ---
STUDY: CT ABDOMEN AND PELVIS WITHOUT CONTRAST REASON FOR EXAM: Female, 49 years old. LUQ PAIN,N/D -- HX-OVARIAN CA W/ HYST RADIATION DOSAGE (If Supplied By Facility): CTDIvol = ( 6.20 ) mGy, DLP = ( 314.32 ) mGycm TECHNIQUE: Transaxial images were obtained from the dome of the diaphragm to the symphysis pubis without oral contrast, and without intravenous contrast. Sagittal and coronal images were reconstructed. Individualized dose optimization techniques were used for this CT. COMPARISON: July 25, 2018. FINDINGS: The visualized lung bases are unremarkable for bibasilar dependent atelectasis and potential 8.5 mm peribronchovascular nodule versus vascular confluence within the posterior right lower lobe, sequence 2, image 22. This is a stable finding. The visualized portions of the heart are within normal limits. Normal liver. Normal gallbladder and extrahepatic biliary system. Normal spleen. Normal pancreas. Normal bilateral adrenal glands. Normal right kidney. Normal left kidney. Normal visualized stomach. Normal small intestine. There is a moderate to large quantity of retained fecal material throughout the colon. There are a few uncomplicated sigmoid colon diverticula. Status post appendectomy. No free fluid. No free air. Multifocal calcified plaque is seen throughout the aortoiliac system without evident aneurysm. Normal inferior vena cava. Normal retroperitoneum. Normal urinary bladder. Normal abdominal wall. No acute osseous abnormality. No suspicious lytic or blastic osseous finding. CT/Abdomen/Pelvis without Cont IMPRESSION: Peribronchovascular right lower lobe nodule versus simply confluence of vessels. This finding appears stable. Bibasilar dependent atelectasis. Status post appendectomy. No evident obstruction. No free fluid. No free air. Atherosclerotic peripheral vascular disease. Large quantity of retained fecal material throughout the colon. Diverticulosis without CT evidence of diverticulitis. Technical quality: Limited evaluation of GI tract without oral contrast. Electronically Signed: Nba Magana MD at 15:37 EST , Service support ,
[2019-03-25] MEDS: HYDROmorphone 1 MG/ML Syringe IV (13:41)
[2019-03-25 15:03] VITALS: BP 138/90; PULSE 65; RESP 18; O2SAT 100
--- NOTE | 2019-03-25 16:05 | ED.DEP ---
ED Disposition - Plan for ED Patient: Instructions: ABDOMINAL PAIN, Unknown Cause, (Female) Referrals: Care Physician,No Primary [Primary Care Provider] -
[2019-03-25] MEDS: HYDROmorphone 0.5 MG/0.5 ML SYRINGE IV (16:10)
[2019-03-25 16:19] VITALS: RESP 18; O2SAT 100
== END 2019-03-25 16:20 | disposition home or self-care (01) ==
PROVIDERS: Emergency Provider Emergency Medicine
DX: R10.9 Unspecified abdominal pain (principal); R11.0 Nausea; I25.10 Atherosclerotic heart disease of native coronary artery without angina pectoris; I70.209 Unspecified atherosclerosis of native arteries of extremities, unspecified extremity; I10 Essential (primary) hypertension; Z72.0 Tobacco use; Z79.899 Other long term (current) drug therapy; Z90.710 Acquired absence of both cervix and uterus
CPT/HCPCS: 74176; 80053; 83690; 85025; 96361; 96374; 96375; 96376; 99282; J7030; A4216